=== PATIENT | male | born 1945 | race Caucasian/White ===

== ENCOUNTER 2019-03-10 11:00 | Outpatient (CLI) | payer OTHER, SELFPAY | END 2019-03-10 11:01 | disposition home or self-care (01) | LOC: SLEEP 03-11 11:53 | PROVIDERS: Family Provider Emergency Medicine Emergency Medical Services; PCP Emergency Medicine Emergency Medical Services; Visit Provider Internal Medicine Critical Care Medicine | DX: G70.9 Myoneural disorder, unspecified (principal) | CPT/HCPCS: 94762 ==

== ENCOUNTER 2019-04-20 05:58 | Day surgery (SDC) | payer OTHER, SELFPAY ==
[2019-04-20 06:15] VITALS: BMI 32.5
[2019-04-20] MEDS: sodium chloride 0.9% 1,000 ML 30 ML (06:47)
--- NOTE | 2019-04-20 07:01 | P.HP_ITS ---
Same Day Surgery H&P Indication for Procedure/HPI DATE OF PROCEDURE: April 20, 2019 CHIEF COMPLAINT/INDICATIONFOR SURGICAL PROCEDURE: GIST stomach Chronic constipation PREOP DIAGNOSIS: gastric mass PLANNED PROCEDRUE: Operation Date: 04/20/19 07:30 Proposed Procedures p EGD/COLON 21554/17487/C49.A2/R19.4(Not Applicable) - Prateek Moore MD s Colonoscopy(Not Applicable) - Prateek Moore MD Medications/Allergies* Home Medications Medication Instructions Recorded Confirmed Type amlodipine 10 mg tablet 10 mg PO DAILY 04/17/19 04/20/19 History azelastine 137 mcg (0.1 %) nasal 2 spray INTRANASAL BID 04/17/19 04/20/19 History spray aerosol biotin 1 mg capsule 1 mg PO DAILY 04/17/19 04/20/19 History budesonide-formoterol HFA 80 2 puff INHALATION BID 04/17/19 04/20/19 History mcg-4.5 mcg/actuation aerosol inhaler bupropion HCl 300 mg 24 hr tablet, 300 mg PO QAM 04/17/19 04/20/19 History extended release cholecalciferol (vitamin D3) 2,000 2,000 unit PO DAILY 04/17/19 04/20/19 History unit tablet clonidine HCl 0.1 mg tablet 0.05 mg PO BID 04/17/19 04/20/19 History cyclobenzaprine 10 mg tablet 10 mg PO TID PRN 04/17/19 04/20/19 History hydrochlorothiazide 25 mg tablet 25 mg PO DAILY 04/17/19 04/20/19 History hydroxyzine HCl 50 mg tablet 50 mg PO .qHS tab 04/17/19 04/20/19 History levothyroxine 88 mcg capsule 88 mcg PO DAILY 04/17/19 04/20/19 History lisinopril 40 mg tablet 40 mg PO DAILY 04/17/19 04/20/19 History metoprolol tartrate 50 mg tablet 25 mg PO BID tab 04/17/19 04/20/19 History mirtazapine 15 mg tablet 45 mg PO DAILY tab 04/17/19 04/20/19 History modafinil 200 mg tablet 400 mg PO DAILY tab 04/17/19 04/20/19 History omega-3 fatty acids 1,000 mg 1,000 mg PO DAILY 04/17/19 04/20/19 History capsule pantoprazole 40 mg PO BID 04/17/19 04/20/19 History clonidine HCl 0.1 mg PO BID 04/20/19 04/20/19 History ropinirole 1.5 mg PO BEDTIME 04/20/19 04/20/19 History Allergies/Adverse Reactions Allergy/AdvReac Type Severity Reaction Status Date / Time No Known Allergies Allergy Verified 04/17/19 08:54 Pertinent History/Comorbid Conditions* Medical History (Updated 04/20/19 @ 07:00 by Prateek Moore MD) COPD (chronic obstructive pulmonary disease) Depression Gastrointestinal stromal tumor (GIST) of stomach H/O prostate cancer History of tumor stomach tumor removed Hyperlipidemia Hypertension Hypothyroidism Multiple sclerosis Surgical History (Updated 04/20/19 @ 07:00 by Prateek Moore MD) H/O circumcision H/O colonoscopy 2011 H/O esophagogastroduodenoscopy 10/29/2017 Family History (Updated 04/17/19 @ 15:58 by Gaby Bender LPN) Diabetes Heart disease Bleeding disorder Sister Cancer Denies family history of Anesthesia complication Social History Smoking and tobacco status: former smoker Alcohol intake: never Substance/Drug Use: never Household members: spouse Marital status: Current occupational status: retired History of recent travel: No Pertinent Exam Findings alert, oriented x 3, clear to auscultation bilaterally and regular rate & rhythm Abdomen: soft Related Problem List Diagnoses (1) Gastrointestinal stromal tumor (GIST) of stomach: Recommendations Surgery/Procedure today Coding Level of Care Code Acute Professional Bass Fisher for mely Saez Diagnoses Gastrointestinal stromal tumor (GIST) of stomach C49.A2
[2019-04-20 07:50] VITALS: BP 168/79; PULSE 57; RESP 18; TEMP 36.8; O2SAT 95
--- NOTE | 2019-04-20 07:55 | ANES.PREANE2 ---
Pre-Anesthetic Assessment Pre-Anesthetic Assessment: Height/Weight: Height 1.8 m Weight 105.687 kg Temp Pulse Resp BP Pulse Ox 98.2 F 57 L 18 168/79 95 04/20/19 07:50 04/20/19 07:50 04/20/19 07:50 04/20/19 07:50 04/20/19 07:50 Preop Diagnosis: gastric mass Proposed Procedure: Operation Date: 04/20/19 07:30 Proposed Procedures p EGD/COLON 38358/78903/C49.A2/R19.4(Not Applicable) - Prateek Moore MD s Colonoscopy(Not Applicable) - Prateek Moore MD Familial anesthetic complications: none Was Beta Rajendra taken within 24 hours: Yes Last intake: Intake Last Liquid Date 04/19/19 Last Liquid Time 22:00 Last Solid Date 04/18/19 Last Solid Time 22:00 Social: Social History: No alcohol and No tobacco Exam: Pre-Anes Outpt Exam: alert, oriented x 3, clear to auscultation bilaterally and regular rate & rhythm Airway: Submandibular: WNL Cervical ROM: WNL MP: 2 (full wilkins) Dentition: Full History/ROS: No significant history except as noted Pulmonary: Pulmonary: Sleep apnea (BipAP at night) CV/HEM: CV/HEM: HTN and Murmur : Comments: prostate cancer (seeds) Hepatic: Hepatic: None reported GI: GI: GERD Metabolic: Metabolic: Hyperlipidemia and Thyroid Musc/skel: Musc/skel: OA/DJD Comments: Multiple sclerosis (dx 2006) Neuropsych: Neuropsych: Anxiety and Depression Anesthetic Plan: ASA status: 3 Anesthesia: Anesthesia Evaluation and MAC Risk of > 500 ml blood loss (7ml/kg in children): No PFSH Anesthesia PFSH: Medical History (Updated 04/20/19 @ 07:04 by Prateek Moore MD) COPD (chronic obstructive pulmonary disease) Depression Gastrointestinal stromal tumor (GIST) of stomach H/O prostate cancer History of tumor stomach tumor removed Hyperlipidemia Hypertension Hypothyroidism Multiple sclerosis Surgical History (Updated 04/20/19 @ 07:04 by Prateek Moore MD) H/O circumcision H/O colonoscopy 2011 H/O esophagogastroduodenoscopy 10/29/2017 H/O resection of stomach Laparoscopic partial resection for gist tumor the patient Family History (Updated 02/14/20 @ 15:58 by Gaby Bender LPN) Sister Bleeding disorder Other Cancer Diabetes Heart disease Denies family history of Anesthesia complication Social History (Updated 04/17/19 @ 15:59 by Gaby Bender LPN) Smoking and tobacco status: former smoker Alcohol intake: never Substance/Drug Use: never Household members: spouse Marital status: Current occupational status: retired History of recent travel: No Data Anesthesia Cardiac Studies: No Data to Display
[2019-04-20 08:35] VITALS: BP 126/57; PULSE 56; RESP 18; TEMP 36.6; O2SAT 97
[2019-04-20 08:45] VITALS: BP 130/57; PULSE 47; RESP 18; O2SAT 99
[2019-04-20 08:55] VITALS: BP 145/61; PULSE 46; RESP 18; O2SAT 96
--- NOTE | 2019-04-20 10:01 | ANE.PACU2 ---
 Inpatient post-anesthesia follow up: Airway intact: Yes Vital signs: Temperature 97.8 F Pulse Rate 46 Respiratory Rate 18 Blood Pressure 145/61 Pulse Oximetry 96 Oxygen Delivery Me thod Room Air Oxygen Flow Rate 3 Fraction of Inspir ed Oxygen Hydration adequate: Yes Nausea and vomiting: No Mental status: Baseline
== END 2019-04-20 09:24 | disposition home or self-care (01) ==
PROVIDERS: Family Provider Emergency Medicine Emergency Medical Services; PCP Emergency Medicine Emergency Medical Services; Visit Provider Surgery
PROC: 0DJ08ZZ Inspection of Upper Intestinal Tract, Via Natural or Artificial Opening Endoscopic (ICD-10-PCS; CPT 43235; principal; 2019-04-20 07:30)
PROC: 0DJD8ZZ Inspection of Lower Intestinal Tract, Via Natural or Artificial Opening Endoscopic (ICD-10-PCS; CPT 45378; 2019-04-20 07:30)
DX: C49.A2 Gastrointestinal stromal tumor of stomach (principal); K59.09 Other constipation; J44.9 Chronic obstructive pulmonary disease, unspecified; Z85.46 Personal history of malignant neoplasm of prostate; E78.5 Hyperlipidemia, unspecified; I10 Essential (primary) hypertension; E03.9 Hypothyroidism, unspecified; G35 Multiple sclerosis; Z82.49 Family history of ischemic heart disease and other diseases of the circulatory system; Z83.3 Family history of diabetes mellitus; Z87.891 Personal history of nicotine dependence; Z90.49 Acquired absence of other specified parts of digestive tract; K29.70 Gastritis, unspecified, without bleeding; K92.1 Melena; D12.2 Benign neoplasm of ascending colon; K57.30 Diverticulosis of large intestine without perforation or abscess without bleeding; K64.8 Other hemorrhoids; G47.30 Sleep apnea, unspecified; K21.9 Gastro-esophageal reflux disease without esophagitis; M19.90 Unspecified osteoarthritis, unspecified site
CPT/HCPCS: 12345; 43239; 45380; 88305; J2704; J7030

== ENCOUNTER 2020-03-11 07:34 | Inpatient (IN) | payer OTHER, MEDICARE, SELFPAY ==
[2020-03-11] VITALS (15 sets, daily range): BP systolic 134–157; BP diastolic 54–77; PULSE 60–87; RESP 16–22; TEMP 37–37.2; O2SAT 89–97; BMI 26.4
--- NOTE | 2020-03-11 07:36 | XR_ITS ---
WS: [id number] PORTABLE CHEST HISTORY: Dyspnea COMPARISON: 10/24/2018 Lungs are clear and well expanded. No pleural effusion or pneumothorax. Cardiac size: Normal. Mediastinum/Aorta: Normal mediastinum. No osseous abnormality seen. XR/XR chest 1V portable [id number] IMPRESSION: Unremarkable portable chest.
--- NOTE | 2020-03-11 07:47 | W.ED.COVID ---
HPI - COVID General: Chief Complaint: General Medical Stated Complaint: Covid +/ weakness/ SOB Time Seen by Provider: 03/11/20 07:36 History of Present Illness: HPI Narrative: 74 male presents to the emergency room with complaint of Covid-like symptoms. He states he tested positive on March 09 at the [place]. He has had a cough shortness of breath generalized malaise malaise and myalgias for more than a week. He had a neck surgery in December and according to our records he had a gastric tumor in his stomach diagnosed approximately a year ago. He has had increasing cough and shortness of breath as well. MD complaint: known COVID positive Prior covid testing: yes, results known (At [place]) Prior testing date: 03/09/20 COVID 19 common symptoms: positive fever(s), chills, cough, non-productive cough, dyspnea, fatigue, body aches, nasal congestion, nausea, vomiting and diarrhea COVID Results: No Data to Display Review of Systems Const: Reports: fever(s), body aches and fatigue ENMT: Reports: nasal congestion Resp: Reports: dyspnea and non-productive cough GI: Reports: nausea, vomiting and diarrhea PFSH ED PFSH: Medical History COPD (chronic obstructive pulmonary disease) Depression Gastrointestinal stromal tumor (GIST) of stomach H/O prostate cancer History of tumor stomach tumor removed Hyperlipidemia Hypertension Hypothyroidism Multiple sclerosis Surgical History H/O circumcision H/O colonoscopy 04/2019: Repeat in 5 years H/O esophagogastroduodenoscopy 04/2019 H/O resection of stomach Laparoscopic partial resection for gist tumor the patient Family History Sister Bleeding disorder Other Cancer Diabetes Heart disease Denies family history of Anesthesia complication Social History Smoking and tobacco status: former smoker Alcohol intake: never Household members: spouse Marital status: Current occupational status: retired History of recent travel: No Physical Exam Const: COMMON NORMALS: no acute distress GENERAL APPEARANCE: cooperative and comfortable ORIENTATION/CONSCIOUSNESS: Yes awake, Yes oriented to person, Yes oriented to place and Yes oriented to time HENMT: COMMON NORMALS: normocephalic, atraumatic and hearing grossly normal bilaterally HEAD & SCALP: normocephalic and atraumatic Eye: COMMON NORMALS: Equal, round and reactive pupils present, EOMs intact bilaterally, conjunctivae normal and no scleral icterus CONJUNCTIVA: Yes conjunctivae normal PUPIL: Yes Equal, round and reactive pupils present Neck/C-Spine: COMMON NORMALS: no JVD Resp: AUSCULTATION: rhonchi and wheezes Cardio: COMMON NORMALS: no JVD, regular rate, regular rhythm and No murmurs present (Cardio) RATE: regular rate RHYTHM: regular rhythm GI: COMMON NORMALS: Soft to palpation and No hepatosplenomegaly present AUSCULTATION: Yes normoactive bowel sounds PALPATION: Yes Soft to palpation, No Tenderness to palpation present (GI), No Guarding due to palpation present (GI) and Yes No hepatosplenomegaly present Extremity: COMMON NORMALS: normal to inspection, capillary refill normal, no clubbing, cyanosis or edema, no calf tenderness and no pedal edema Neuro: SENSORIUM/ORIENTATION: Yes oriented to person, Yes oriented to place and Yes oriented to time Skin: COMMON NORMALS: no rashes or lesions noted GENERAL SKIN EXAM: no rashes or lesions noted Course Vital Signs: Vital signs: Vital Signs Pulse Rate 78 03/11/20 07:39 Respiratory Rate 22 H 03/11/20 07:39 Blood Pressure 149/65 03/11/20 07:39 Pulse Oximetry 95 03/11/20 11:11 MDM - COVID MDM Narrative: Medical decision making narrative: Home O2 sat patient was 95% even with activity however when he sleeps he drops down to 88%. He does have CT findings of Covid he has persistent nausea and vomiting and has increase in his creatinine. I think he does merit observation overnight I am concerned that he will further worsen him started on remdesivir and dexamethasone. Considered giving him bam however since he is requiring oxygen at time of not sure it would be best he already has signs of Covid pneumonitis. Finally there is some question of the length of time he is reporting that some the symptoms extend beyond a week he may be outside of the 7 to 10-day window as well. Lab Data: Labs: Lab Results 03/11/20 03/11/20 03/11/20 Range/Units 08:05 09:05 09:05 WBC 5.3 (4.0-10.0) 10^3/ uL RBC 4.54 (4.1-5.3) 10^6/u L Hgb 13.2 (11.7-16.6) g/dL Hct 39.7 L (42.0-52.0) % MCV 87.4 (80-94) fL MCH 29.1 (28.0-34.0) pg MCHC 33.2 (30.0-36.0) g/dL RDW 15.2 H (12.1-15.1) % Plt Count 169 (130-400) 10^3/c mm MPV 13.4 H (7.4-10.4) fL Neut % (Auto) 65.0 % Lymph % (Auto) 20.8 % [place] % (Auto) 13.6 % Eos % (Auto) 0.2 % Baso % (Auto) 0.2 % Neut # (Auto) 3.45 (1.8-7.7) 10^3/u L Lymph # (Auto) 1.1 (0.8-4.8) 10^3/u L [place] # (Auto) 0.7 (0.2-0.9) 10^3/u L Eos # (Auto) 0.0 (0.0-0.8) 10^3/u L Baso # (Auto) 0.0 (0.0-0.1) 10^3/u L Nucleated RBC % (a uto) 0 % Nucleated RBCs # 0.0 /100WBC D-Dimer 2.28 H (0-0.59) ug/mIFE U Specimen Type Arterial Sample Site Radial, right ABG pH 7.42 (7.35-7.45) ABG pCO2 28.9 L (35-45) mmHg ABG pO2 67.3 L (80.0-100.0) mmH g ABG HCO3 18.9 L (22-26) mmol/L ABG O2 Saturation 95.0 ABG Base Excess -4.3 L (-2.0-2.0) mmol/ L Francisco J Test Pos A-a O2 Gradient 6.1 (5-10) mmHg Hematocrit 41.4 L (42-52) % Hgb O2 Saturation 93.6 L (95-100) % Carboxyhemoglobin 0.6 (0.4-20.1) %THgb Methemoglobin 0.9 (0.4-1.5) % Total Hemoglobin 13.5 L (14-18) g/dL Sodium 140.0 (131-143) mmol/L Potassium 3.5 (3.5-5.0) mmol/L Glucose 80.0 (70-115) mg/dL Ionized Calcium 1.4 (1.1-1.4) mmol/L O2 Delivery Device Room air FiO2 21.0 % Sports Medicine Specialist ID Ed Chloride (98-107) mmol/L Carbon Dioxide (22-29) mmol/L Anion Gap (5-19) BUN (8-23) mg/dL Creatinine (0.7-1.2) mg/dL GFR Calculation Calculated Osmolal ity (285-295) mOsm/k g Calcium (8.5-10.5) mg/dL Total Bilirubin (0.15-1.2) mg/dL AST (0-40) U/L ALT (0-41) U/L Alkaline Phosphata se (40-130) IU/L Total Protein (6.6-8.7) g/dL Albumin (3.5-5.2) g/dL Globulin (1.3-4.6) g/dL 03/11/20 Range/Units 09:05 WBC (4.0-10.0) 10^3/ uL RBC (4.1-5.3) 10^6/u L Hgb (11.7-16.6) g/dL Hct (42.0-52.0) % MCV (80-94) fL MCH (28.0-34.0) pg MCHC (30.0-36.0) g/dL RDW (12.1-15.1) % Plt Count (130-400) 10^3/c mm MPV (7.4-10.4) fL Neut % (Auto) % Lymph % (Auto) % [place] % (Auto) % Eos % (Auto) % Baso % (Auto) % Neut # (Auto) (1.8-7.7) 10^3/u L Lymph # (Auto) (0.8-4.8) 10^3/u L [place] # (Auto) (0.2-0.9) 10^3/u L Eos # (Auto) (0.0-0.8) 10^3/u L Baso # (Auto) (0.0-0.1) 10^3/u L Nucleated RBC % (a uto) % Nucleated RBCs # /100WBC D-Dimer (0-0.59) ug/mIFE U Specimen Type Sample Site ABG pH (7.35-7.45) ABG pCO2 (35-45) mmHg ABG pO2 (80.0-100.0) mmH g ABG HCO3 (22-26) mmol/L ABG O2 Saturation ABG Base Excess (-2.0-2.0) mmol/ L Francisco J Test A-a O2 Gradient (5-10) mmHg Hematocrit (42-52) % Hgb O2 Saturation (95-100) % Carboxyhemoglobin (0.4-20.1) %THgb Methemoglobin (0.4-1.5) % Total Hemoglobin (14-18) g/dL Sodium 137 (131-143) mmol/L Potassium 3.9 (3.5-5.0) mmol/L Glucose 78 (70-115) mg/dL Ionized Calcium (1.1-1.4) mmol/L O2 Delivery Device FiO2 % Sports Medicine Specialist ID Chloride 97 L (98-107) mmol/L Carbon Dioxide 19 L (22-29) mmol/L Anion Gap 24.9 H (5-19) BUN 32 H (8-23) mg/dL Creatinine 1.5 H (0.7-1.2) mg/dL GFR Calculation Not Reportable Calculated Osmolal ity 290 (285-295) mOsm/k g Calcium 10.5 (8.5-10.5) mg/dL Total Bilirubin 0.3 (0.15-1.2) mg/dL AST 39 (0-40) U/L ALT 49 H (0-41) U/L Alkaline Phosphata se 122 (40-130) IU/L Total Protein 7.3 (6.6-8.7) g/dL Albumin 4.0 (3.5-5.2) g/dL Globulin 3.3 (1.3-4.6) g/dL COVID Results: No Data to Display Discharge Plan Discharge Patient Disposition: Placed in Observation Clinical Impression: Pneumonia due to 2019-nCoV Condition: Stable Prescriptions: No Action metoprolol tartrate 50 mg tablet 25 mg PO BID RF: 0 hydrochlorothiazide 25 mg tablet 25 mg PO DAILY RF: 0 bupropion HCl 300 mg tablet extended release 24 hr 300 mg PO QAM RF: 0 lisinopril 40 mg tablet 40 mg PO DAILY RF: 0 amlodipine 10 mg tablet 10 mg PO DAILY RF: 0 levothyroxine 88 mcg capsule 88 mcg PO DAILY RF: 0 modafinil 200 mg tablet 400 mg PO DAILY RF: 0 omega-3 fatty acids [Fish Oil Concentrate] 1,000 mg capsule 1,000 mg PO DAILY RF: 0 biotin 1 mg capsule 1 mg PO DAILY RF: 0 cholecalciferol (vitamin D3) 2,000 unit tablet 2,000 unit PO DAILY RF: 0 budesonide-formoterol 80-4.5 mcg/actuation HFA aerosol inhaler 2 puff INHALATION BID RF: 0 hydroxyzine HCl 50 mg tablet 50 mg PO .qHS RF: 0 azelastine 137 mcg (0.1 %) aerosol,spray 2 spray INTRANASAL BID RF: 0 mirtazapine 15 mg tablet 45 mg PO DAILY RF: 0 clonidine HCl 0.1 mg tablet 0.05 mg PO BID RF: 0 cyclobenzaprine 10 mg tablet 10 mg PO TID PRN (Reason: Muscle Spasm) RF: 0 pantoprazole 40 mg tablet,delayed release (DR/EC) 40 mg PO BID RF: 0 clonidine HCl 0.1 mg Tablet 0.1 mg PO BID RF: 0 ropinirole 0.5 mg Tablet 1.5 mg PO BEDTIME RF: 0 Referrals: Marcos Gibson DO [Primary Care Provider] - Coding Level of Care Code ED Casino Cage Cashier for Bari Saez
[2020-03-11 08:16] LABS: ABG PCO2 28.9 mmHg (35-45); ABG PH Result 7.42 (7.35-7.45); Alveolar-Arterial Oxygen Gradi 6.1 mmHg (5-10); Arterial Blood Gas Hematocrit 41.4 % (42-52); Base Excess ABG -4.3 mmol/L (-2.0-2.0); Blood Gas Allen Test Pos; Blood Gas Operator Identificat ED; Blood Gas Sample Site Radial, right; Blood Gas Sample Type Arterial; Carboxyhemoglobin 0.6 %THgb (0.4-20.1); HCO3 ABG 18.9 mmol/L (22-26); HGB O2 Sat 93.6 % (95-100); Ionized Calcium Level - ABG 1.4 mmol/L (1.1-1.4); Methemoglobin 0.9 % (0.4-1.5); Oxygen Device ROOM AIR; PO2 ABG 67.3 mmHg (80.0-100.0); Potassium Level - ABG 3.5 mmol/L (3.5-5.0); Total Hemoglobin 13.5 g/dL (14-18)
[2020-03-11 09:35] LABS: D Dimer 2.28 ug/mIFEU (0-0.59)
[2020-03-11 09:38] LABS: Alanine Aminotransferase 49 U/L (0-41); Alkaline Phosphatase 122 IU/L (40-130); Blood Urea Nitrogen 32 mg/dL (8-23); Calcium 10.5 mg/dL (8.5-10.5); Carbon Dioxide 19 mmol/L (22-29); Chloride 97 mmol/L (98-107); Globulin 3.3 g/dL (1.3-4.6); Glucose 78 mg/dL (65-115); Osmolality Calculated 290 mOsm/kg (285-295); Sodium 137 mmol/L (136-145); Total Bilirubin 0.3 mg/dL (0.15-1.2); Total Protein 7.3 g/dL (6.6-8.7)
[2020-03-11 09:44] LABS: Anion Gap 24.9 (5-19); Aspartate Amino Transferase 39 U/L (0-40); Potassium 3.9 mmol/L (3.5-5.1)
--- NOTE | 2020-03-11 09:45 | CT_ITS ---
WS: [id number] CT CHEST ANGIOGRAPHY WITH REFORMATS HISTORY: elevated d dimer/COVID TECHNIQUE: Contiguous axial images are obtained through the chest during arterial injection of intrav enous contrast. Images are reconstructed to evaluate the pulmonary arteries. MIP imaging also reviewe d. All CT scans at [facility] use at least one of these dose optimization techniques: aut omated exposure control; mA and/or kV adjustment per patient size (includes targeted exams where dose is matched to clinical indication); or iterative reconstruction. CONTRAST: Visipaque 320; 95 mL IV. DLP: 647.01 mGy.cm COMPARISON: 02/02/2019 Adequate but limited opacification of the pulmonary arteries. Centrally there is no pulmonary emboli. Opacification of the lower lobe pulmonary arteries is limited. No upper lobe pulmonary emboli. Izabel l-sized thoracic aorta with mild atherosclerosis. Mild enlargement of the LEFT heart chambers. There is a small anterior pericardial effusion which is similar to the prior study. No pleural effusion. No mediastinal or hilar adenopathy. Numerous small groundglass opacifications throughout both lungs. Slightly greater peripheral and basi lar dominance in the pattern. Consistent with history of Covid 19. Negative thoracic inlet. No significant hiatal hernia. No adrenal mass. Splenic granulomata. CT/CT angio chest PE protcl [id number] IMPRESSION: 1. No pulmonary embolism. 2. Mild multilobar groundglass opacifications bilaterally consistent with hist ory of Covid 19. 3. Small stable pericardial effusion.
[2020-03-11 10:04] LABS: Basophils % 0.2 %; Eosinophils % 0.2 %; Hematocrit 39.7 % (42.0-52.0); Hemoglobin 13.2 g/dL (11.7-16.6); Lymphocytes # 1.1 10^3/uL (0.8-4.8); Lymphocytes % 20.8 %; Mean Corpuscular HGB Conc 33.2 g/dL (30.0-36.0); Mean Corpuscular Hemoglobin 29.1 pg (28.0-34.0); Mean Corpuscular Volume 87.4 fL (80-94); Mean Platelet Volume 13.4 fL (7.4-10.4); Monocytes # 0.7 10^3/uL (0.2-0.9); Monocytes % 13.6 %; Neutrophils # 3.45 10^3/uL (1.8-7.7); Nucleated Red Blood Cells % 0 %; Platelet Count 169 10^3/cmm (130-400); Red Blood Count 4.54 10^6/uL (4.1-5.3); Red Cell Distribution Width 15.2 % (12.1-15.1); White Blood Count 5.3 10^3/uL (4.0-10.0)
[2020-03-11] MEDS: iodixanol 320 mg/mL 100mL Btl IV (10:24)
--- NOTE | 2020-03-11 12:20 | PM.HP ---
Providers/Chief Complaint Admitting Physician: Daniel Phillips MD Primary Care Provider: Marcos Gibson DO Chief Complaint: Covid +/ weakness/ SOB History of Present Illness Elpidio Lopez is a 74 year old male with PMH of COPD, HTN, GIST, Hypothyroidism, MS was admitted with C/O subjective fever, OSB, cough,generalized malaise malaise and myalgias for more than a week. He was tested COVID + On ,since then his SOB and cough has worsened. Upon arrival in the ER he was worked up for above mentioned complain. Imaging Studies: XR chest: Lungs are clear and well expanded. No pleural effusion or pneumothorax. CTA Chest :No pulmonary embolism. Mild multilobar groundglass opacifications bilaterally consistent with history of Covid 19. Small stable pericardial effusion. Pertinent Labs : WBC : 5.3 , H/H : 13/3, BUN/SCR: 32/1.5 D-dimer: 2.28 ABG : Ph:7.42 , PCO2: 28, PO2: 67 FIO2: R/A ECA Medications: He was given Dexamethasone as well as Loading dose of Remdesivir. Review of Systems Const: Denies: diaphoresis Card: Denies: palpitations, edema or swelling of feet/ankles GI: Denies: abdominal pain, nausea, vomiting, diarrhea or constipation : Denies: flank pain or difficulty urinating Musc: Denies: back pain, extremity pain or extremity swelling Neuro: Denies: headache(s) or difficulty walking Medications/Allergies Home Medications Medication Instructions Recorded Confirmed Last Taken Type amlodipine 10 mg tablet 10 mg PO DAILY@1300 04/17/19 03/11/20 03/10/20 History azelastine 137 mcg (0.1 %) nasal 2 spray INTRANASAL BID 04/17/19 03/11/20 03/08/20 History spray aerosol biotin 1 mg capsule 1 mg PO DAILY 04/17/19 03/11/20 03/10/20 History bupropion HCl 300 mg 24 hr tablet, 300 mg PO DAILY@1300 04/17/19 03/11/20 03/10/20 History extended release hydrochlorothiazide 25 mg tablet 25 mg PO DAILY@1300 04/17/19 03/11/20 03/10/20 History hydroxyzine HCl 50 mg tablet 50 mg PO BEDTIME@2200 tab 04/17/19 03/11/20 03/08/20 History levothyroxine 88 mcg capsule 88 mcg PO DAILY@1300 04/17/19 03/11/20 03/10/20 History lisinopril 40 mg tablet 40 mg PO DAILY@2200 04/17/19 03/11/20 03/08/20 History metoprolol tartrate 50 mg tablet 25 mg PO BID@1300,2200 tab 04/17/19 03/11/20 03/10/20 History mirtazapine 15 mg tablet 45 mg PO DAILY@2200 tab 04/17/19 03/11/20 03/08/20 History modafinil 200 mg tablet 400 mg PO DAILY@1300 tab 04/17/19 03/11/20 03/10/20 History omega-3 fatty acids 1,000 mg 1,000 mg PO DAILY@1300 04/17/19 03/11/20 03/10/20 History capsule pantoprazole 40 mg PO BID@1300,2200 04/17/19 03/11/20 03/10/20 History clonidine HCl 0.1 mg PO BID@1300,2200 04/20/19 03/11/20 03/10/20 History ropinirole 2 mg PO BEDTIME@2200 04/20/19 03/11/20 03/08/20 History albuterol sulfate See Rx Instructions .ROUTE .COMPLEX 03/11/20 03/11/20 03/08/20 History aspirin [Aspir-81] 81 mg PO DAILY@1300 03/11/20 03/11/20 03/10/20 History diphenhydramine HCl 25 mg PO DAILY@2200 03/11/20 03/11/20 03/08/20 History lovastatin 40 mg PO DAILY@2200 03/11/20 03/11/20 03/08/20 History melatonin 1 tab PO BEDTIME@2200 03/11/20 03/11/20 03/08/20 History Allergies Allergy/AdvReac Type Severity Reaction Status Date / Time No Known Allergies Allergy Verified 03/11/20 07:38 PFSH Acute PFSH: Medical History COPD (chronic obstructive pulmonary disease) Depression Gastrointestinal stromal tumor (GIST) of stomach H/O prostate cancer History of tumor stomach tumor removed Hyperlipidemia Hypertension Hypothyroidism Multiple sclerosis Surgical History H/O circumcision H/O colonoscopy 04/2019: Repeat in 5 years H/O esophagogastroduodenoscopy 04/2019 H/O resection of stomach Laparoscopic partial resection for gist tumor the patient Family History Sister Bleeding disorder Other Cancer Diabetes Heart disease Denies family history of Anesthesia complication Social History Smoking and tobacco status: former smoker Alcohol intake: never Household members: spouse Marital status: Current occupational status: retired History of recent travel: No Vitals/I&O/Wt Last Vital Signs Pulse 78 03/11/20 07:39 Resp 22 H 03/11/20 07:39 BP 149/65 03/11/20 07:39 Pulse Ox 95 03/11/20 11:11 Weight last 48 hrs Weight 86.183 kg Physical Exam Narrative: EXAM NARRATIVE: Alert and Awake HENMT: COMMON NORMALS: normocephalic, atraumatic and external ears normal HEAD & SCALP: normocephalic and atraumatic Chest: CHEST: Yes Symmetrical chest wall rise Resp: COMMON NORMALS: normal respiratory effort, No retractions, No use of accessory muscles and clear to auscultation bilaterally EFFORT & INSPECTION: Yes symmetric chest movement AUSCULTATION: clear to auscultation bilaterally Cardio: COMMON NORMALS: regular rate, regular rhythm, S1 normal heart sound present, S2 normal heart sound present, No gallops present (Cardio), No murmurs present (Cardio), No rub (Cardio) and Peripheral pulses 2+ throughout RATE: regular rate RHYTHM: regular rhythm HEART SOUNDS: S1 normal heart sound present and S2 normal heart sound present PERIPHERAL PULSES: Peripheral pulses 2+ throughout GI: COMMON NORMALS: Normal to inspection, nondistended, normoactive bowel sounds present, Soft to palpation, non-tender, No hepatosplenomegaly present and no masses AUSCULTATION: Yes normoactive bowel sounds PALPATION: Yes Soft to palpation and Yes No hepatosplenomegaly present RECTAL EXAM: Yes deferred Extremity: COMMON NORMALS: no clubbing, cyanosis or edema and no pedal edema Neuro: COMMON NORMALS: patient oriented x3 Data : 03/11/20 09:05 03/11/20 09:05 A&P Assessment and plan (1) Pneumonia due to COVID-19 virus: Currently on COVID Protocol REM : (03/11-03/15 ) Dexamethasone 6 MG i.v Daily Cef and Azithromycin Monitor Cytokine storm Markers. 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
[2020-03-11] MEDS: remdesivir 200 MG in sodium chloride 0.9% (100 ml) 100 ML 100 MG IV (12:42)
[2020-03-11] MEDS: dexamethasone 4 mg/mL INJ 6 MG IVP ×2 (12:42→22:21)
[2020-03-11] MEDS: cefTRIAXone 1,000 MG in sodium chloride 0.9% (plus) 50 ML 100 MG IV (14:59)
[2020-03-11] MEDS: heparin 5,000 unit/mL INJ 1 mL 5000 UNIT SUBCUT (14:59)
[2020-03-11] MEDS: azithromycin 500 MG in sodium chloride 0.9% 250 ML 250 MG IV (14:59)
[2020-03-11] MEDS: sodium chloride 0.9% 1,000 ML 75 ML IV (15:08)
[2020-03-11] MEDS: oxyCODONE-APAP 5-325 mg Tablet 1 TAB PO (15:08)
[2020-03-11] MEDS: cloNIDine 0.1 mg Tablet 0.05 MG PO (17:34)
[2020-03-11] MEDS: metoprolol tartrate 25 mg Tablet PO (17:34)
[2020-03-11] MEDS: albuterol 8 gm MDI 2 PUFF INHALATION (20:00)
[2020-03-11] MEDS: ropinirole 1 mg Tablet 1.5 MG PO (21:50)
[2020-03-11] MEDS: mirtazapine 15 mg Tablet 45 MG PO (21:51)
[2020-03-11] MEDS: hyDROXYzine 25 mg Capsule 50 MG PO (21:52)
[2020-03-12] VITALS (16 sets, daily range): BP systolic 115–141; BP diastolic 55–66; PULSE 54–82; RESP 15–24; TEMP 36.3–37.2; O2SAT 92–98
[2020-03-12] MEDS: heparin 5,000 unit/mL INJ 1 mL 5000 UNIT SUBCUT ×2 (01:39→15:34)
[2020-03-12] MEDS: oxyCODONE-APAP 5-325 mg Tablet 1 TAB PO ×2 (01:52→22:02)
[2020-03-12 05:18] LABS: Hematocrit 35.6 % (42.0-52.0); Hemoglobin 11.8 g/dL (11.7-16.6); Lymphocytes # 0.8 10^3/uL (0.8-4.8); Lymphocytes % 21.1 %; Mean Corpuscular HGB Conc 33.1 g/dL (30.0-36.0); Mean Corpuscular Hemoglobin 28.8 pg (28.0-34.0); Mean Corpuscular Volume 86.8 fL (80-94); Mean Platelet Volume 11.7 fL (7.4-10.4); Monocytes # 0.4 10^3/uL (0.2-0.9); Monocytes % 10.4 %; Neutrophils # 2.48 10^3/uL (1.8-7.7); Nucleated Red Blood Cells % 0 %; Platelet Count 119 10^3/cmm (130-400); Red Cell Distribution Width 15.2 % (12.1-15.1); White Blood Count 3.7 10^3/uL (4.0-10.0)
[2020-03-12] MEDS: sodium chloride 0.9% 1,000 ML 75 ML IV (05:41)
[2020-03-12 06:05] LABS: NT Pro B Type Natriuretic Pept 750 pg/mL (0-125); Procalcitonin 0.25 ng/mL (0-0.5); Thyroid Stimulating Hormone 2.67 uIU/mL (0.27-4.20)
[2020-03-12 06:16] LABS: Alanine Aminotransferase 44 U/L (0-41); Albumin Level 3.4 g/dL (3.5-5.2); Alkaline Phosphatase 105 IU/L (40-130); Anion Gap 18.9 (5-19); Aspartate Amino Transferase 34 U/L (0-40); Blood Urea Nitrogen 24 mg/dL (8-23); C Reactive Protein 71.8 mg/L (0.0-4.9); Calcium 10.3 mg/dL (8.5-10.5); Carbon Dioxide 21 mmol/L (22-29); Chloride 102 mmol/L (98-107); Globulin 2.9 g/dL (1.3-4.6); Glucose 107 mg/dL (65-115); Magnesium 1.7 mg/dL (1.7-2.3); Osmolality Calculated 291 mOsm/kg (285-295); Potassium 3.9 mmol/L (3.5-5.1); Sodium 138 mmol/L (136-145); Total Bilirubin 0.2 mg/dL (0.15-1.2); Total Protein 6.3 g/dL (6.6-8.7)
[2020-03-12 06:41] LABS: Ferritin 1258 ng/mL (30-400)
[2020-03-12 07:08] LABS: INR 1.23 (0.8-1.2)
[2020-03-12 07:09] LABS: Partial Thromboplastin Time 42.7 SECONDS (23.9-36.7)
[2020-03-12 07:34] LABS: D Dimer 1.51 ug/mIFEU (0-0.59)
[2020-03-12 08:36] LABS: Erythrocyte Sedimentation Rate 31 mm/hr (0-10)
[2020-03-12] MEDS: albuterol 8 gm MDI 2 PUFF INHALATION ×2 (08:47→19:54)
[2020-03-12] MEDS: buPROPion XL (24 HR) 300 mg Tablet PO (10:51)
[2020-03-12] MEDS: levothyroxine 88 mcg Tablet PO (10:51)
[2020-03-12] MEDS: pantoprazole DR 40 mg Tablet PO (10:51)
[2020-03-12] MEDS: cholecalciferol (vitamin D3) 1,000 unit Tablet 2000 UNIT PO (10:51)
[2020-03-12] MEDS: cloNIDine 0.1 mg Tablet 0.05 MG PO ×2 (10:52→18:26)
[2020-03-12] MEDS: metoprolol tartrate 25 mg Tablet PO ×2 (10:52→18:24)
[2020-03-12] MEDS: amlodipine 10 mg Tablet PO (10:52)
[2020-03-12] MEDS: cefTRIAXone 1,000 MG in sodium chloride 0.9% (plus) 50 ML 100 MG IV (12:24)
[2020-03-12] MEDS: azithromycin 500 MG in sodium chloride 0.9% 250 ML 250 MG IV (15:36)
[2020-03-12] MEDS: remdesivir 100 MG in sodium chloride 0.9% (100 ml) 100 ML IV (18:25)
--- NOTE | 2020-03-12 18:39 | PM.PN ---
Subjective Subjective: Interval history: Complaining of difficulty swallowing, which he describes has been going on for a while and has resulted in significant weight loss. He deny any other complain. Vitals and labs have been reviewed. Medications: Reviewed: Yes Vitals/I&O/Wt Last Vital Signs Temp 97.4 F L 03/12/20 16:00 Pulse 76 03/12/20 16:00 Resp 17 03/12/20 16:00 BP 128/61 03/12/20 18:26 Pulse Ox 95 03/12/20 16:00 03/12/20 03/12/20 03/12/20 06:59 14:59 22:59 Intake Total 1000 / 1300 120 / 120 240 / 360 Output Total 0 / 500 575 / 575 Balance 1000 / 800 120 / 120 -335 / -215 Weight last 48 hrs Weight 91.807 kg Weight 86.183 kg Physical Exam Const: COMMON NORMALS: patient oriented x3 HENMT: COMMON NORMALS: normocephalic and atraumatic HEAD & SCALP: normocephalic and atraumatic Chest: COMMONS NORMALS: normal inspection of the chest and normal palpation of entire chest wall CHEST: Yes Symmetrical chest wall rise Resp: COMMON NORMALS: normal respiratory effort, No retractions, No use of accessory muscles and clear to auscultation bilaterally EFFORT & INSPECTION: Yes symmetric chest movement AUSCULTATION: clear to auscultation bilaterally Cardio: COMMON NORMALS: regular rate, regular rhythm, S1 normal heart sound present, S2 normal heart sound present, No gallops present (Cardio), No murmurs present (Cardio), No rub (Cardio) and Peripheral pulses 2+ throughout RATE: regular rate RHYTHM: regular rhythm HEART SOUNDS: S1 normal heart sound present and S2 normal heart sound present PERIPHERAL PULSES: Peripheral pulses 2+ throughout GI: COMMON NORMALS: Normal to inspection, nondistended, normoactive bowel sounds present, Soft to palpation, non-tender, No hepatosplenomegaly present and no masses AUSCULTATION: Yes normoactive bowel sounds PALPATION: Yes Soft to palpation and Yes No hepatosplenomegaly present RECTAL EXAM: Yes deferred Extremity: COMMON NORMALS: no clubbing, cyanosis or edema and no pedal edema Neuro: COMMON NORMALS: patient oriented x3 Data : 03/12/20 04:45 03/12/20 04:45 A&P Assessment and plan (1) Pneumonia due to COVID-19 virus: Currently on COVID Protocol REM : (03/11-03/15 ) Dexamethasone 6 MG i.v Daily Cef and Azithromycin Monitor Cytokine storm Markers. Lovenox 40 mg sc daily Supplemental Oxygen as needed Nebs Status: Acute (2) Dysphagia: Complaining of difficulty swallowing, which he describes has been going on for a while and has resulted in significant weight loss. Deny any chest pain. 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 (4) COPD (chronic obstructive pulmonary disease): Status: Acute (5) Hypertension: Status: Acute (6) Hypothyroidism: Status: Acute (7) Multiple sclerosis: Status: Acute Additional A&P Information DVT ppx:Lovenox 40 mg sc daily Code Status :Full code Disposition:Home Attestations Medical Necessity Statement*: Patient needs to be in hospital for the management of COVID Infection Coding Level of Care Code Acute Development Disability Specialist for [facility] Fwd Diagnoses Pneumonia due to COVID-19 virus U07.1; J12.89 Dysphagia R13.10 Gastrointestinal stromal tumor (GIST) of stomach 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
[2020-03-12] MEDS: dexamethasone 4 mg/mL INJ 6 MG IVP (20:13)
[2020-03-12] MEDS: ropinirole 1 mg Tablet 1.5 MG PO (21:56)
[2020-03-12] MEDS: mirtazapine 15 mg Tablet 45 MG PO (22:00)
[2020-03-12] MEDS: hyDROXYzine 25 mg Capsule 50 MG PO (22:05)
[2020-03-13] VITALS (9 sets, daily range): BP systolic 121–140; BP diastolic 46–65; PULSE 46–86; RESP 15–18; TEMP 35.8–36.3; O2SAT 92–96; BMI 28.8
[2020-03-13] MEDS: sodium chloride 0.9% 1,000 ML 75 ML IV (00:09)
[2020-03-13] MEDS: heparin 5,000 unit/mL INJ 1 mL 5000 UNIT SUBCUT (03:51)
[2020-03-13 04:16] LABS: D Dimer 1.44 ug/mIFEU (0-0.59)
[2020-03-13 04:18] LABS: C Reactive Protein 52.2 mg/L (0.0-4.9)
[2020-03-13 04:41] LABS: Ferritin 1233 ng/mL (30-400)
[2020-03-13 04:48] LABS: Erythrocyte Sedimentation Rate 38 mm/hr (0-10)
--- NOTE | 2020-03-13 05:44 | NUR.SHIFT ---
Patient refused his wellbutrin this morning. He said he would try to take it when he takes his other medication around 8-9am. I rescheduled for 0800.
[2020-03-13] MEDS: albuterol 8 gm MDI 2 PUFF INHALATION (08:10)
[2020-03-13] MEDS: metoprolol tartrate 25 mg Tablet PO (10:34)
[2020-03-13] MEDS: cloNIDine 0.1 mg Tablet 0.05 MG PO (10:34)
[2020-03-13] MEDS: amlodipine 10 mg Tablet PO (10:35)
[2020-03-13] MEDS: levothyroxine 88 mcg Tablet PO (10:35)
[2020-03-13] MEDS: cholecalciferol (vitamin D3) 1,000 unit Tablet 2000 UNIT PO (10:35)
[2020-03-13] MEDS: buPROPion XL (24 HR) 300 mg Tablet PO (10:35)
[2020-03-13] MEDS: pantoprazole DR 40 mg Tablet PO (10:40)
--- NOTE | 2020-03-13 13:44 | PM.DCS ---
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 He was tested COVID + On ,since then his SOB and cough has worsened. Admitted for the management of COVID 19 infection. During this entire hospital stay he was saturating well on room air, he was afebrile, his other vitals were stable. He was kept on remdesivir ( 2 Doses ) and Decadron.He for most part was not a candidate for inpatient admission for COVID infection. During the hospital stay he was also complaining of worsening dysphagia and weight loss due to it. He underwent FESS was unremarkable, but it showed large tounge base, tonsils as well as adenoids.He will follow ENT as an outpatient for further work up. Patient was discharged in stable condition to home. Pertinent Imaging Studies: CT angio chest: No pulmonary embolism.Mild multilobar groundglass opacifications bilaterally consistent with history of Covid 19. Small stable pericardial effusion. Xray Chest : Lungs are clear and well expanded. No pleural effusion or pneumothorax. Cardiac size: Normal. Mediastinum/Aorta: Normal mediastinum. Physical Exam Const: COMMON NORMALS: patient oriented x3 HENMT: COMMON NORMALS: normocephalic and atraumatic HEAD & SCALP: normocephalic and atraumatic Chest: CHEST: Yes Symmetrical chest wall rise Resp: COMMON NORMALS: clear to auscultation bilaterally EFFORT & INSPECTION: Yes symmetric chest movement AUSCULTATION: clear to auscultation bilaterally Cardio: COMMON NORMALS: regular rate, regular rhythm, S1 normal heart sound present, S2 normal heart sound present, No gallops present (Cardio), No murmurs present (Cardio), No rub (Cardio) and Peripheral pulses 2+ throughout RATE: regular rate RHYTHM: regular rhythm HEART SOUNDS: S1 normal heart sound present and S2 normal heart sound present PERIPHERAL PULSES: Peripheral pulses 2+ throughout GI: COMMON NORMALS: Normal to inspection, nondistended, normoactive bowel sounds present, Soft to palpation, non-tender, No hepatosplenomegaly present and no masses AUSCULTATION: Yes normoactive bowel sounds PALPATION: Yes Soft to palpation and Yes No hepatosplenomegaly present RECTAL EXAM: Yes deferred Extremity: COMMON NORMALS: no clubbing, cyanosis or edema and no pedal edema Neuro: COMMON NORMALS: patient oriented x3 Discharge Data Data Completed and Pending: Completed Studies During Hospitalization Category Date Time Status CT angio chest PE protcl [id number] Stat Cat Scan 03/11/20 09:45 Completed XR chest 1V lianna ble [id number] Stat Exams 03/11/20 07:36 Completed Pending at discharge Category Date Time Status CRP [C Reactive P rotein] AM LABS Lab 03/14/20 04:00 Ordered D Dimer AM LABS Lab 03/14/20 04:00 Ordered Erythrocyte Sedim entation Rate AM L ABS Lab 03/14/20 04:00 Ordered Ferritin AM LABS Lab 03/14/20 04:00 Ordered Sputum Culture an d Gram Stain Routi ne Lab 03/13/20 08:34 Ordered Labs from last 24 hours 03/13/20 03/13/20 03/13/20 03:45 03:45 03:45 ESR 38 H D-Dimer 1.44 H Ferritin 1233 H C-Reactive Protein 52.2 H Vitals: Last Vital Signs Temp 96.6 F L 03/13/20 12:00 Pulse 50 L 03/13/20 12:00 Resp 16 03/13/20 12:00 BP 133/52 03/13/20 12:00 Pulse Ox 96 03/13/20 12:00 Discharge Plan Discharge Patient Disposition: Home Condition: Stable Prescriptions: Continued metoprolol tartrate 50 mg tablet 25 mg PO BID@1300,2200 RF: 0 hydrochlorothiazide 25 mg tablet 25 mg PO DAILY@1300 RF: 0 bupropion HCl 300 mg tablet extended release 24 hr 300 mg PO DAILY@1300 RF: 0 lisinopril 40 mg tablet 40 mg PO DAILY@220 RF: 0 amlodipine 10 mg tablet 10 mg PO DAILY@1300 RF: 0 levothyroxine 88 mcg capsule 88 mcg PO DAILY@1300 RF: 0 modafinil 200 mg tablet 400 mg PO DAILY@1300 RF: 0 omega-3 fatty acids [Fish Oil Concentrate] 1,000 mg capsule 1,000 mg PO DAILY@1300 RF: 0 biotin 1 mg capsule 1 mg PO DAILY RF: 0 hydroxyzine HCl 50 mg tablet 50 mg PO BEDTIME@2199 RF: 0 azelastine 137 mcg (0.1 %) aerosol,spray 2 spray INTRANASAL BID RF: 0 mirtazapine 15 mg tablet 45 mg PO DAILY@2199 RF: 0 pantoprazole 40 mg tablet,delayed release (DR/EC) 40 mg PO BID@1300,220 RF: 0 clonidine HCl 0.1 mg Tablet 0.1 mg PO BID@1300,2199 RF: 0 ropinirole 0.5 mg Tablet 2 mg PO BEDTIME@2199 RF: 0 lovastatin 40 mg Tablet 40 mg PO DAILY@2199 RF: 0 aspirin 81 mg Tablet,Delayed Release (Dr/Ec) 81 mg PO DAILY@1300 RF: 0 diphenhydramine HCl 25 mg Tablet 25 mg PO DAILY@2199 RF: 0 albuterol sulfate See Rx Instructions .ROUTE .COMPLEX RF: 0 melatonin 1 tab PO BEDTIME@2199 RF: 0 Discharge Orders: Discharge Order (Routine); Ordered 03/13/20 Ordered By: Daniel Phillips Referrals: Simone Anne MD [Physician] - 4-7 days (Please call on Saturday to schedule appt. [facility] will need to get [facility] from them first. Olga Lidia with Case Management will follow up with you on Saturday to see if need assistance with referral. Olga Lidia ) Marcos Gibson, [Primary Care Provider] - Discharge Diet: Soft Mechanical Discharge Activity: Resume usual activity Patient Instructions: Dysphagia, Chronic Hypertension (GEN) Discharge Attestations Time Spent in Discharge Care*: less than 30 min Specific Discharge Activities: educating patient, educating and/or supporting family/caregiver, discussing with director of casework services/social workers/dc planners, documenting/other paperwork and evaluating patient/reviewing data Status at Discharge: Cognitive status at discharge: cognitively intact, Behavioral status at discharge: cooperative, Functional status at discharge: independent ambulation Overall status at discharge: patient is back to baseline Quality Metrics Clinical Quality Measures During this hospital stay, did patient experience: None Coding Level of Care Code Acute Pbx Manager for [facility] Fwd Exam Detailed Diagnoses Pneumonia due to COVID-19 virus U07.1; J12.89 Dysphagia R13.10 Gastrointestinal stromal tumor (GIST) of stomach 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
--- NOTE | 2020-03-14 13:26 | PC.RESP ---
Pulmonary Rehab information sent to patient.
--- NOTE | 2020-03-15 09:08 | PC.SOCIAL ---
Called to see if assistance is needed to coordinate [facility]. indicates [facility] is having to send to [facility] Phillips instead and working on auth. They dont have Omid in their system yet. will make appt once auth obtained. She indicates patient still unable to eat or drink and having excess secretions. He was vomiting last night and is sleeping currently.We discussed if continues to worsen may need to return so he does not get dehydrated. does not want him back on the floor in closed COVID unit because he has hearing deficits and she wants family to be involved in care. She is hoping can see Dr Phillips soon.
== END 2020-03-13 15:45 | disposition home or self-care (01) | DRG 177 ==
LOC: ER 11:33 → MEDSURG 03-12 10:24
PROVIDERS: Admitting Provider Internal Medicine; Emergency Provider Family Medicine; PCP Emergency Medicine Emergency Medical Services; Visit Provider Internal Medicine
DX: U07.1 COVID-19 (principal); J12.82 Pneumonia due to coronavirus disease 2019; J44.0 Chronic obstructive pulmonary disease with (acute) lower respiratory infection; C49.A2 Gastrointestinal stromal tumor of stomach; R13.10 Dysphagia, unspecified; E03.9 Hypothyroidism, unspecified; G35 Multiple sclerosis; I10 Essential (primary) hypertension; Z85.46 Personal history of malignant neoplasm of prostate; F32.9 Major depressive disorder, single episode, unspecified; E78.5 Hyperlipidemia, unspecified; Z87.891 Personal history of nicotine dependence
CPT/HCPCS: 12345; 36415; 36600; 71045; 71275; 80051; 80053; 82330; 82728; 82805; 83605; 83735; 83880; 84145; 84443; 85025; 85378; 85610; 85651; 85730; 86140; 87070; 87205; 92523; 92526; 92610; 92612; 94640; 96372; 99282; J0456; J0696; J1100; J1644; J3535; J7030; J7050; Q9967

== ENCOUNTER 2020-03-28 09:17 | Outpatient (CLI) | payer OTHER, MEDICARE, SELFPAY ==
--- NOTE | 2020-03-28 09:24 | CT_ITS ---
WS: [id number] CT NECK WITH CONTRAST HISTORY: DYSPHAGIA TECHNIQUE: Contiguous 5 mm axial images are performed through the neck with intravenous contrast. Sag ittal and coronal reformats are also submitted. All CT scans at [facility] use at least o ne of these dose optimization techniques: automated exposure control; mA and/or kV adjustment per pat ient size (includes targeted exams where dose is matched to clinical indication); or iterative recons truction. CONTRAST: CONTRAST: Visipaque 320; 95 mL IV. DLP: 517.25 mGy.cm COMPARISON: MRI 10/22/2006 cervical spine MRI Nasopharynx and oropharynx are negative. There is some very mild soft tissue thickening at the base o f the RIGHT aryepiglottic fold. This may been present in 2006 on the MRI. Otherwise the larynx is neg ative. Torus tubarius and fossa of Rosenmuller and parapharyngeal fat are normal. No significant lymphadenopathy is identified. Subcentimeter RIGHT thyroid nodule. Parotid and submandibular glands are negative. Anterior cervical fusion with interbody spacer at C3-4. No inferior displacement of cerebellar tonsil s. Visualized portions of the skull base demonstrate no abnormalities. Orbits and globes are within norm al limits. No soft tissue masses. Visualized paranasal sinuses and mastoid air cells are normal. Lung apices are clear. CT/CT neck w con* [id number] IMPRESSION: 1. Very mild soft tissue thickening at the base of the RIGHT aryepiglottic fol d. Recommend direct visualization to evaluate for early neoplasm. 2. No adenopathy.
--- NOTE | 2020-03-28 10:30 | FL_ITS ---
WS: [id number] Preliminary survey shows operative fusion of the C-spine at the C3-4 level with anterior plate and sc rew fixation. The fusion is in good alignment is not ossified. Exam: FL barium swallow [id number] Date/Time of Exam: 03/28/2020 11:00 AM Reason For Exam: DYSPHAGIA Fluoroscopy time: 1.6 minutes Swallowing function at the level of the oropharynx was normal. No evidence of aspiration or penetrati on into the laryngeal inlet. There was no evidence of esophageal stricture or mass. No hiatal hernia or gastroesophageal reflux was noted. FL/FL barium swallow [id number] IMPRESSION: 1. No indication of esophageal stricture, mass or obstruction. 2. No aspiration identified. Esophageal motility was grossly normal.
[2020-03-28] MEDS: iohexol 300 mg/mL 100 mL Btl IV (10:51)
== END 2020-03-28 09:18 | disposition home or self-care (01) ==
PROVIDERS: PCP Emergency Medicine Emergency Medical Services; Visit Provider Specialist
DX: R13.10 Dysphagia, unspecified (principal)
CPT/HCPCS: 70491; 74220; Q9967

== ENCOUNTER 2020-03-31 10:20 | Outpatient (CLI) | payer OTHER, MEDICARE, SELFPAY ==
--- NOTE | 2020-03-31 10:32 | FL_ITS ---
WS: [id number] MODIFIED BARIUM SWALLOW TECHNIQUE: Modified barium swallow with speech therapy using multiple consistencies. FLUOROSCOPY TIME: 3.5 minutes. CLINICAL INFORMATION: Other dysphagia COMPARISON: None. FINDINGS: No evidence of aspiration or penetration. Delayed oropharyngeal phase with decreased pharyngeal contr actility. Prior postoperative changes anterior cervical fusion C3-4 with interbody fusion. Posterior projecting small diverticulum at the C6 level likely represents a small Zenker's diverticulum. No dif ficulties with barium tablet. FL/FL barium swallow modifd [id number] IMPRESSION: 1. Delayed oropharyngeal phase with pooling in the vallecula. 2. No evidence of aspiration penetration. 3. Small Zenker's diverticulum at the C5-6 level with retained contrast. No ph aryngeal compression. 4. No difficulties with the barium tablet.
== END 2020-03-31 10:21 | disposition home or self-care (01) ==
LOC: RAD 10:27
PROVIDERS: PCP Emergency Medicine Emergency Medical Services; Visit Provider Specialist
DX: R13.19 Other dysphagia (principal)
CPT/HCPCS: 74230; 92611

== ENCOUNTER 2021-10-25 13:35 | Inpatient (IN) | payer OTHER, MEDICARE, SELFPAY ==
[2021-10-25] VITALS (25 sets, daily range): BP systolic 104–162; BP diastolic 69–138; PULSE 79–129; RESP 15–30; TEMP 36.9; O2SAT 93–98
--- NOTE | 2021-10-25 13:40 | ECG_ITS ---
[facility] Test Date: 2021-10-25 Pat Name: Elpidio Lopez Department: Room: Gender: Male Treatment Counselor: : 1945 Requested By: Romario Clark Order Number: [id number] Christopher MD: Floyd Levin M.D. Measurements Intervals [place] Rate: 126 P: [place]: QRS: 42 QRSD: 100 T: 7 QT: 327 QTc: 474 Interpretive Statements ATRIAL FIBRILLATION WITH RAPID VENTRICULAR RESPONSE MODERATE ST DEPRESSION [0.05+ mV ST DEPRESSION] Compared to ECG 10/24/2018 10:03:37 ST (T wave) deviation now present Sinus bradycardia no longer present Electronically Signed On 10-25-2021 16:29:53 CDT by Floyd Levin M.D. [id number] f
[2021-10-25] MEDS: sodium chloride 0.9% 500 ML 999 ML IV (14:20)
[2021-10-25] MEDS: dilTIAZem 5 mg/mL SDV 5 mL 10 MG IVP (14:20)
[2021-10-25 14:36] LABS: Basophils # 0.1 10^3/uL (0.0-0.1); Basophils % 1.4 %; Eosinophils # 0.4 10^3/uL (0.0-0.8); Eosinophils % 4.3 %; Hematocrit 49.4 % (42.0-52.0); Lymphocytes # 1.9 10^3/uL (0.8-4.8); Lymphocytes % 21.3 %; Mean Corpuscular HGB Conc 32.4 g/dL (30.0-36.0); Mean Corpuscular Hemoglobin 28.3 pg (28.0-34.0); Mean Corpuscular Volume 87.3 fl (80-94); Mean Platelet Volume 12.1 fL (7.4-10.4); Monocytes # 0.8 10^3/uL (0.2-0.9); Monocytes % 8.6 %; Neutrophils # 5.61 10^3/uL (1.8-7.7); Neutrophils % 63.8 %; Nucleated Red Blood Cells % 0 %; Platelet Count 193 10^3/cmm (130-400); Red Blood Count 5.66 10^6/uL (4.1-5.3); Red Cell Distribution Width 13.2 % (12.1-15.1); White Blood Count 8.8 10^3/uL (4.0-10.0)
[2021-10-25 14:54] LABS: D Dimer 0.37 ug/mIFEU (0-0.59)
[2021-10-25 15:05] LABS: Troponin(5th) Baseline 24 ng/L (0-15)
[2021-10-25 15:11] LABS: Alanine Aminotransferase 15 U/L (0-41); Albumin Level 4.2 g/dL (3.5-5.2); Alkaline Phosphatase 108 U/L (40-130); Anion Gap 15.9 (5-19); Aspartate Amino Transferase 11 U/L (0-40); Blood Urea Nitrogen 15 mg/dL (8-23); Calcium 9.3 mg/dL (8.5-10.5); Carbon Dioxide 26 mmol/L (22-29); Chloride 103 mmol/L (98-107); Globulin 3.6 g/dL (1.3-4.6); Glucose 94 mg/dL (65-115); Osmolality Calculated 293 mOsm/kg (285-295); Potassium 3.9 mmol/L (3.5-5.1); Sodium 141 mmol/L (136-145); Thyroid Stimulating Hormone 5.08 uIU/mL (0.27-4.20); Total Bilirubin 0.4 mg/dL (0.15-1.2); Total Protein 7.8 g/dL (6.6-8.7)
--- NOTE | 2021-10-25 15:32 | W.ED.CHESTPA ---
HPI - Chest Pain General: Chief Complaint: Chest Pain Stated Complaint: chest pain Time Seen by Provider: 10/25/21 13:50 History of Present Illness: 75-year-old male presenting today with sudden onset of chest pain this morning. Patient notes that pain awoken him from sleep. When he awoke Handy that it was left-sided. Nonradiating. And that his heart rate was going fast. Primary him to coming to the ED. He has no prior history of atrial fibrillation. He is not on any kind of blood thinners. He has no significant history of coronary artery disease. Of note he was recently diagnosed with hyperthyroidism. And had a thyroidectomy is now currently on levothyroxine. He denies other stimulant use. He denies fevers or chills. Denies nausea or vomiting. He denies shortness of breath. He has edema of bilateral lower extremities which is new for him. Review of Systems General: Reports: 10 or more systems reviewed and unremarkable except in HPI and below PFSH ED PFSH: Medical History (Updated 10/25/21 @ 15:35 by Romario Clark DO) COPD (chronic obstructive pulmonary disease) Depression Gastrointestinal stromal tumor (GIST) of stomach H/O prostate cancer Hyperlipidemia Hypertension Hypothyroidism Multiple sclerosis Pneumonia due to 2019-nCoV Surgical History (Updated 12/30/20 @ 16:00 by Prateek Moore MD) H/O circumcision H/O colonoscopy 04/2019: Repeat in 5 years H/O esophagogastroduodenoscopy 04/2019 H/O neck surgery H/O resection of stomach Laparoscopic partial resection for gist tumor the patient History of parathyroid surgery Family History Sister Bleeding disorder Other Cancer Diabetes Heart disease Denies family history of Anesthesia complication Social History Smoking and tobacco status: former smoker Alcohol intake: never Household members: spouse Marital status: Current occupational status: retired History of recent travel: No Physical Exam Const: COMMON NORMALS: no acute distress, patient oriented x3 and alert GENERAL APPEARANCE: cooperative ORIENTATION/CONSCIOUSNESS: Yes awake, Yes oriented to person, Yes oriented to place and Yes oriented to time HENMT: COMMON NORMALS: normocephalic, atraumatic, external ears normal, Normal external nose present and moist oral mucous membranes HEAD & SCALP: normal to inspection, normocephalic and atraumatic NOSE: Normal external nose present GENERAL EAR: hearing grossly impaired EXTERNAL EAR: Yes external ears normal Eye: COMMON NORMALS: Equal, round and reactive pupils present, EOMs intact bilaterally, conjunctivae normal and no scleral icterus GENERAL EYE: appearance normal, both eyes and all related structures EYELID: eyelids normal CONJUNCTIVA: Yes conjunctivae normal SCLERA: sclerae normal PUPIL: Yes Equal, round and reactive pupils present Neck/C-Spine: COMMON NORMALS: full ROM, supple and no JVD GENERAL: Yes normal visual inspection Lymph: LYMPHATIC: no lymphadenopathy noted and no lymphedema noted Chest: COMMONS NORMALS: normal inspection of the chest Resp: COMMON NORMALS: normal respiratory effort, No retractions and No use of accessory muscles Cardio: COMMON NORMALS: no JVD; negative for regular rate (Regular rate and rhythm.) and negative for regular rhythm RATE: abnormal rate (Regular rate and rhythm.) RHYTHM: abnormal rhythm GI: COMMON NORMALS: Normal to inspection, nondistended, normoactive bowel sounds present : COMMON NORMALS: Yes no CVA tenderness BLADDER/KIDNEY EXAM: Yes no CVA tenderness Back/Pelvis: COMMON NORMALS: no CVA tenderness and thoracic and lumbar spine normal to inspection Extremity: COMMON NORMALS: normal to inspection, full ROM and capillary refill normal GENERAL: Yes normal exam except as noted Neuro: COMMON NORMALS: patient oriented x3, CN's II-XII intact bilaterally, moves all extremities, no focal motor deficits, no sensory deficits noted and gait normal SENSORIUM/ORIENTATION: Yes alert, Yes oriented to person, Yes oriented to place and Yes oriented to time Psych: COMMON NORMALS: mental status grossly normal, Normal thought process present, cooperative and normal affect THOUGHT PROCESS: Normal thought process present Skin: COMMON NORMALS: no rashes or lesions noted and no wounds GENERAL SKIN EXAM: no rashes or lesions noted Course Vital Signs: Vital signs: Vital Signs Temperature 98.5 F 10/25/21 13:42 Pulse Rate 85 10/25/21 14:30 Respiratory Rate 20 H 10/25/21 14:30 Blood Pressure 141/88 10/25/21 14:30 Pulse Oximetry 96 10/25/21 14:17 MDM - Chest Pain Medical Decision Making 75-year-old male presenting today with chest pain. EKG with evidence of atrial fibrillation with rapid ventricular response. Patient given 10 mg of diltiazem with improvement of RVR. Initial troponin is slightly elevated. CBC is unremarkable. CMP with renal insufficiency which appears to be patient's baseline. TSH is moderately elevated. Will admit to the hospital for new onset atrial fibrillation. Lab Data : 10/25/21 14:26 10/25/21 14:26 Laboratory Results WBC 8.8 10^3/uL (4.0-10.0) 10/25/21 14:26 RBC 5.66 10^6/uL (4.1-5.3) H 10/25/21 14:26 Hgb 16.0 g/dL (11.7-16.6) 10/25/21 14: Hct 49.4 % (42.0-52.0) 10/25/21 14: MCV 87.3 fl (80-94) 10/25/21 14: MCH 28.3 pg (28.0-34.0) 10/25/21 14: MCHC 32.4 g/dL (30.0-36.0) 10/25/21 14: RDW 13.2 % (12.1-15.1) 10/25/21 14: Plt Count 193 10^3/cmm (130-400) 10/25/21 14: MPV 12.1 fL (7.4-10.4) H 10/25/21 14: Neut % (Auto) 63.8 % 10/25/21 14: Lymph % (Auto) 21.3 % 10/25/21 14:26 [place] % (Auto) 8.6 % 10/25/21 14:26 Eos % (Auto) 4.3 % 10/25/21 14:26 Baso % (Auto) 1.4 % 10/25/21 14: Neut # (Auto) 5.61 10^3/uL (1.8-7.7) 10/25/21 14: Lymph # (Auto) 1.9 10^3/uL (0.8-4.8) 10/25/21 14: [place] # (Auto) 0.8 10^3/uL (0.2-0.9) 10/25/21 14:26 Eos # (Auto) 0.4 10^3/uL (0.0-0.8) 10/25/21 14:26 Baso # (Auto) 0.1 10^3/uL (0.0-0.1) 10/25/21 14:26 Nucleated RBC % (auto) 0 % 10/25/21 14: Nucleated RBCs # 0.0 /100WBC 10/25/21 14:26 D-Dimer 0.37 ug/mIFEU (0-0.59) 10/25/21 14:26 Sodium 141 mmol/L (136-145) 10/25/21 14:26 Potassium 3.9 mmol/L (3.5-5.1) 10/25/21 14:26 Chloride 103 mmol/L (98-107) 10/25/21 14: Carbon Dioxide 26 mmol/L (22-29) 10/25/21 14:26 Anion Gap 15.9 (5-19) 10/25/21 14:26 BUN 15 mg/dL (8-23) 10/25/21 14:26 Creatinine 1.4 mg/dL (0.7-1.2) H 10/25/21 14:26 GFR Calculation Not Reportable 10/25/21 14:26 Glucose 94 mg/dL (65-115) 10/25/21 14:26 Calculated Osmolality 293 mOsm/kg (285-295) 10/25/21 14: Calcium 9.3 mg/dL (8.5-10.5) 10/25/21 14:26 Total Bilirubin 0.4 mg/dL (0.15-1.2) 10/25/21 14:26 AST 11 U/L (0-40) 10/25/21 14:26 ALT 15 U/L (0-41) 10/25/21 14:26 Alkaline Phosphatase 108 U/L (40-130) 10/25/21 14:26 Troponin T Baseline 24 ng/L (0-15) H 10/25/21 14:26 Total Protein 7.8 g/dL (6.6-8.7) 10/25/21 14:26 Albumin 4.2 g/dL (3.5-5.2) 10/25/21 14:26 Globulin 3.6 g/dL (1.3-4.6) 10/25/21 14:26 TSH 5.08 uIU/mL (0.27-4.20) H 10/25/21 14:26 Discharge Plan Discharge Patient Disposition: Admitted As Inpatient Clinical Impression: Atrial fibrillation, Acute renal insufficiency Condition: Stable Discharge Diet: Advance as tolerated Discharge Activity: Resume usual activity Coding Level of Care Code ED Weatherization Director for [facility] Fwd Exam Comprehensive
--- NOTE | 2021-10-25 15:57 | PC.NURSE ---
pt resting in bed, assisted pt in adjusting positioning in bed. warm blanket brought to pt
--- NOTE | 2021-10-25 16:01 | ECG_ITS ---
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 Measurements Intervals [place] Rate: 97 P: [place]: QRS: 33 QRSD: 95 T: 23 QT: 363 QTc: 462 Interpretive Statements ATRIAL FIBRILLATION ABNORMAL RHYTHM ECG Compared to ECG 10/25/2021 13:40:56 ST (T wave) deviation no longer present Electronically Signed On 10-25-2021 16:36:10 CDT by Floyd Levin M.D. [id number]
--- NOTE | 2021-10-25 16:02 | USCV_ITS ---
Elpidio Lopez Age: 75 Gender: M : 1945 Exam Date: 10/25/2021 16:20 Ordering Phys: Baljit Chávez MD Technologist: Venice Feliciano [place] [facility] [place] Afib with RVR BP: 162 / 87 HR: 98 Rhythm: Atrial fibrillation Technical Quality: Adequate MEASUREMENTS (Male / Female) Normal Values 2D ECHO LV Diastolic Diameter PLAX 3.3 cm 4.2 - 5.9 / 3.9 - 5.3 cm LV Systolic Diameter PLAX 2.3 cm LV Chamber Size 4.6 cm IVS Diastolic Thickness 1.1 cm 0.6 - 1.0 / 0.6 - 0.9 cm IVS Systolic Thickness 1.3 cm LVPW Diastolic Thickness 1.4 cm 0.6 - 1.0 / 0.6 - 0.9 cm LVPW Systolic Thickness 1.7 cm RV Chamber Size 3.2 cm LVOT Diameter 2.1 cm LV Ejection Fraction 2D Teich 60.0 % LV Ejection Fraction MOD 2C 56.9 % LV Ejection Fraction 2C AL 55.9 % LA Diameter 3.9 cm LA Width 3.2 cm LA Height 4.4 cm RA Width 3.6 cm RA Height 3.9 cm Aorta at Sinotubular Diameter 3.1 cm IVC Diameter 2.1 cm M-MODE Aortic Annulus Diameter 3.7 cm LA Ao Ratio MM 1.2 MV E Point Septal Separation 0.5 cm DOPPLER AV Peak Velocity 120.0 cm/s LVOT Peak Velocity 87.0 cm/s AV Area Cont Eq vti 2.8 cm squared AV Area Cont Eq pk 2.4 cm squared MV Area PHT 3.4 cm squared MV E' Velocity 45.0 cm/s Mitral E to MV E' Ratio 7.5 Mitral E to LV E' Lateral Ratio 7.0 Mitral E to LV E' Septal Ratio 8.0 TV Peak E Velocity 55.0 cm/s Right Atrial Pressure 3.0 mmHg PV Peak Velocity 79.0 cm/s FINDINGS Left Ventricle Normal left ventricular cavity size. Mildly increased left ventricular wall thickness. Normal left ventricular systolic function. Left ventricular ejection fraction is estimated at 55 %. No diagnostic regional wall motion abnormalities. Rhythm precludes evaluation of diastolic function. Right Ventricle Normal right ventricular size and systolic function. Right Atrium Normal right atrial size. Left Atrium Mildly increased left atrial size. Mitral Valve Structurally normal mitral valve. No mitral valve stenosis. Trace mitral valve regurgitation. Aortic Valve Structurally normal trileaflet aortic valve. No aortic valve stenosis. Trace to mild aortic valve regurgitation. Tricuspid Valve Tricuspid valve not well visualized. Pulmonic Valve Pulmonic valve not well visualized. Pericardium No pericardial effusion. Aorta Normal size aortic root and proximal ascending aorta. IVC Normal sized inferior vena cava. CONCLUSIONS 1. Normal left ventricular cavity size and systolic function. Mildly increased left ventricular wall thickness. Left ventricular ejection fraction is estimated at 55 %. No diagnostic regional wall motion abnormalities. 2. Normal right ventricular size and systolic function. 3. Trace to mild aortic valve regurgitation. 4. Mildly increased left atrial size. 5. No prior similar studies to compare. Candace Whitaker MD (Electronically Signed) Final Date: 26 October 2021 08:38 S
--- NOTE | 2021-10-25 16:03 | P.HP_ITS ---
Providers/Chief Complaint Primary Care Provider: Marcos Gibson DO Chief Complaint: chest pain History of Present Illness Elpidio Lopez is a 75 year old male with PMH of COPD, HTN, GIST, Hypothyroidism, MS, recent history of thyroidectomy presented to the ER today after he suffered left-sided chest pain which was nonradiating which woke him up from sleep. On checking his vitals at that time he found out his heart rate was running very fast so he presented to the ER. In the ER he was found to have atrial fibrillation with rapid ventricular response with heart rate going up to 130s for which he required 10 mg of IV Cardizem after which his heart rate settled down into 80s. On my examination patient is chest pain-free. He denies of having any palpitations, dizziness, shortness of breath during the episode. Denies of having any prior history of atrial fibrillation. Denies of any changes in his medications recently other than addition of amantadine for MS. Review of Systems General: Reports: 10 or more systems reviewed and unremarkable except in HPI and below Const: Denies: fever(s), chills, body aches, change in appetite, change in weight, malaise, night sweats, diaphoresis, change in sleep pattern, daytime sleepiness or snoring Eyes: Denies: change in vision, blurry vision, photophobia, eye discomfort or eye discharge ENMT: Denies: throat pain, enlarged tonsils, hoarseness, mouth pain, oral sores, dry mouth, tinnitus, nasal congestion or post nasal drip Card: Denies: chest pain, palpitations, irregular heart rhythm, edema, swelling of feet/ankles, lightheadedness, syncope, pre-syncope, dyspnea on exertion, orthopnea, leg pain with exertion or acrocyanosis Resp: Denies: dyspnea, productive cough, non-productive cough, wheezing, stridor, pain on inspiration, change in phlegm color, hemoptysis or chest congestion GI: Denies: abdominal pain, nausea, vomiting, hematemesis, coffee ground emesis, dysphagia, heartburn, diarrhea, constipation, bloating, GI cramping, change in bowel habits, pain on defecation, hematochezia or melena : Denies: flank pain, difficulty urinating, dysuria, urinary frequency, u rinary urgency, urinary hesitancy, urinary dribbling, difficulty starting urination, change in urine stream, nocturia or hematuria Musc: Denies: neck pain, back pain, extremity pain, joint pain, joint swelling, joint redness, joint stiffness or limited range of motion Neuro: Denies: headache(s), numbness in extremities, weakness in extremities, sensory changes, lack of coordination, difficulty walking, frequent falls, dizziness, vertigo, confusion, Slurred speech present, difficulty communicating thoughts or seizure-like activity Psych: Denies: anxiety, depression, mood swings, panic attacks, hopelessness or irritability Endo: Denies: polyuria, polydipsia, tired all the time, cold intolerance, excessive sweating, flushing or heat intolerance Dov/Lymph: Denies: easy bruising or easy bleeding All/Imm: Denies: tongue swelling, facial swelling or acute wheezing Medications/Allergies Home Medications Medication Instructions Recorded Confirmed Last Taken Type amlodipine 10 mg tablet 10 mg PO DAILY 04/17/19 10/25/21 10/25/21 History azelastine 137 mcg (0.1 %) nasal 2 spray intranasal BID PRN Allergy 04/17/19 10/25/21 03/08/20 History spray aerosol Symptoms biotin 1 mg capsule 1 mg PO DAILY 04/17/19 10/25/21 03/10/20 History bupropion HCl 300 mg 24 hr tablet, 300 mg PO DAILY 04/17/19 10/25/21 10/25/21 History extended release hydrochlorothiazide 25 mg tablet 25 mg PO DAILY 04/17/19 10/25/21 10/25/21 History hydroxyzine HCl 50 mg tablet 50 mg PO BEDTIME 04/17/19 10/25/21 10/24/21 History levothyroxine 88 mcg capsule 88 mcg PO DAILY 04/17/19 10/25/21 10/25/21 History lisinopril 40 mg tablet 40 mg PO DAILY 04/17/19 10/25/21 10/24/21 History metoprolol tartrate 50 mg tablet 25 mg PO BID 04/17/19 10/25/21 10/25/21 History modafinil 200 mg tablet 200 mg PO DAILY 04/17/19 10/25/21 10/25/21 History pantoprazole 40 mg tablet,delayed 40 mg PO DAILY 04/17/19 10/25/21 10/25/21 History release clonidine HCl 0.1 mg tablet 0.1 mg PO BID 04/20/19 10/25/21 10/25/21 History lovastatin 40 mg tablet 40 mg PO DAILY 03/11/20 10/25/21 10/24/21 History melatonin 5 mg tablet 5 mg PO BEDTIME ##0 03/11/20 10/25/21 10/24/21 History ipratropium bromide 21 mcg (0.03 2 spray intranasal BID 03/25/20 10/25/21 Unknown History %) nasal spray amantadine HCl 100 mg tablet 100 mg PO DAILY 10/25/21 10/25/21 10/25/21 History artificial 3 spray mucous membrane Q4H PRN 10/25/21 10/25/21 Unknown History saliva(carboxymethylcellulose-electrolytes) Dry Mouth spray pump cholecalciferol (vitamin D3) 25 25 mcg PO DAILY 10/25/21 10/25/21 10/25/21 History mcg (1,000 unit) tablet (Vitamin D3) cyanocobalamin (vitamin B-12) 250 250 mcg PO DAILY 10/25/21 10/25/21 10/25/21 History mcg tablet (Vitamin B-12) doxylamine succinate 25 mg tablet 25 mg PO BEDTIME PRN Sleep 10/25/21 10/25/21 10/24/21 History mirtazapine 45 mg tablet 45 mg PO BEDTIME 10/25/21 10/25/21 10/24/21 History ropinirole 2 mg tablet 2 mg PO BEDTIME 10/25/21 10/25/21 10/24/21 History tamsulosin 0.4 mg capsule 0.8 mg PO BEDTIME 10/25/21 10/25/21 10/24/21 History Allergies Allergy/AdvReac Type Severity Reaction Status Date / Time No Known Allergies Allergy Verified 10/25/21 14:58 PFSH Acute PFSH: Medical History (Updated 10/25/21 @ 17:25 by Baljit Chávez MD) CKD (chronic kidney disease) COPD (chronic obstructive pulmonary disease) Depression Gastrointestinal stromal tumor (GIST) of stomach H/O prostate cancer Hyperlipidemia Hypertension Hypothyroidism Multiple sclerosis Pneumonia due to 2019-nCoV Surgical History (Updated 10/25/21 @ 17:25 by Baljit Chávez MD) H/O circumcision H/O colonoscopy 04/2019: Repeat in 5 years H/O esophagogastroduodenoscopy 04/2019 H/O neck surgery H/O resection of stomach Laparoscopic partial resection for gist tumor the patient History of parathyroid surgery History of thyroidectomy Family History Sister Bleeding disorder Other Cancer Diabetes Heart disease Denies family history of Anesthesia complication Social History Smoking and tobacco status: former smoker Alcohol intake: never Household members: spouse Marital status: Current occupational status: retired History of recent travel: No Vitals/I&O/Wt Last Vital Signs Temp 98.5 F 10/25/21 13:42 Pulse 85 10/25/21 14:30 Resp 20 H 10/25/21 14:30 BP 141/88 10/25/21 14:30 Pulse Ox 96 10/25/21 14:17 Weight last 48 hrs Weight 106.594 kg Physical Exam Narrative: General: No acute distress, AO x3, pleasant, HEENT: PERRLA, pupils bilaterally equal and reactive Chest: Normal vesicular breath sounds bilaterally, no added sound CVS: S1-S2 irregularly irregular no tachycardia, no gallops, no rubs Abdomen: Soft, nontender, no organomegaly, bowel sounds present, morbidly obese Neuro: No focal deficits, no facial deformity, AO x3, power 5/5 in all limbs Data : 10/25/21 14:26 10/25/21 14:26 A&P Assessment and plan (1) Atrial fibrillation: New diagnosis. Rate controlled currently. Increase home dose of metoprolol to 50 mg twice daily. Will uptitrate with target heart rate of less than 100. Echocardiogram. Check urine drug screen, free T3, free T4. TSH mildly elevated. Discussed in detail regarding anticoagulation for stroke prevention. Patient verbalized understanding and is agreeable. We will start on Eliquis 5 mg twice daily. Status: Acute (2) CKD (chronic kidney disease): Baseline creatinine since last admission over a year ago seems to be from 1.2- 1.4. Currently 1.4. Renal ultrasound, urinalysis, urine lites, urine eosinophils Status: Acute (3) COPD (chronic obstructive pulmonary disease): No acute distress. Status: Acute (4) Hypothyroidism: History of thyroidectomy. Continue home dose of levothyroxine 88 mcg daily. Follow-up free T3 and free T4 results and uptitrate dose accordingly. Status: Acute (5) Chest pain: During palpitations and rapid ventricular response. Denies any past history of stress test or CAD. Patient does have risk factors including high blood pressure and family history of heart disease. Patient will require outpatient stress test. Echocardiogram as above to monitor for EF and regional wall motion abnormality. Status: Acute Plan Hypertension: Goal blood pressure less than 140/90 mmHg. Continue home dose of clonidine, lisinopril, modafinil. Continue other chronic medications. Analgesia: Tylenol Glycemic control: Not needed, check A1c Nutrition: Regular diet CODE STATUS: Full code PUD prophylaxis: Protonix DVT prophylaxis: Eliquis will suffice as DVT prophylaxis Discharge planning: Home with caregiver once medically stable. Admit to CSU. This documentation was created by [employer] chalk molding machine operator software. Every effort was made to ensure accuracy of chalk molding machine operator. Any obvious errors or omissions should be clarified with the author of the document. Attestations Medical Necessity Statement*: Admission for more than 2 midnights for management of atrial fibrillation with rapid ventricular response Time Spent in Patient Care: Greater than 35 minutes Coding Level of Care Code Acute Window Machine Operator for Chg Fwd Diagnoses Atrial fibrillation I48.91 CKD (chronic kidney disease) N18.9 COPD (chronic obstructive pulmonary disease) J44.9 Hypothyroidism E03.9 Chest pain R07.9
[2021-10-25 16:46] LABS: Add Urine Microscopic? NO; Charge for UA Resulting for Rev
[2021-10-25 16:57] LABS: Bilirubin Urine Neg (Negative); Blood Urine Neg (Negative); Glucose Urine UA Norm (Normal); Ketones Urine Negative (Negative); Leukocyte Esterase Urine Negative (Negative); Nitrate Urine Negative (Negative); Protein Urine Neg (Negative); Specific Gravity, Urine 1.005 (1.005-1.030); Urine Appearance Clear (CLEAR); Urine Color Straw (Yellow); Urobilinogen Urine Norm (Negative); pH Urine 6 (5-7)
[2021-10-25 17:02] LABS: Amphetamines Screen Urine Negative (Negative); Barbiturates Screen Urine Negative (Negative); Benzodiazepines Screen Urine Negative (Negative); Cocaine Screen Urine Negative (Negative); Opiate Screen Urine Negative (Negative); PCP Screen Urine Negative (Negative); THC Screen Urine Negative (Negative)
[2021-10-25 17:05] LABS: Adenovirus Not Detected (NOT DETECT); Chlamydia Pneumoniae Not Detected (NOT DETECT); Coronavirus 229E,HKU1,NL63,OC4 Not Detected (NOT DETECT); Human Metapneumovirus Not Detected (NOT DETECT); Human Rhinovirus/Enterovirus Not Detected (NOT DETECT); Influenza A Not Detected (NOT DETECT); Influenza A H1 Not Detected (NOT DETECT); Influenza A H1-2009 Not Detected (NOT DETECT); Influenza A H3 Not Detected (NOT DETECT); Influenza B Not Detected (NOT DETECT); Mycoplasma Pneumoniae Not Detected (NOT DETECT); Parainfluenza Virus Type 1 Not Detected (NOT DETECT); Parainfluenza Virus Type 2 Not Detected (NOT DETECT); Parainfluenza Virus Type 3 Not Detected (NOT DETECT); Parainfluenza Virus Type 4 Not Detected (NOT DETECT); Respiratory Syncytial Virus A Not Detected (NOT DETECT); Respiratory Syncytial Virus B Not Detected (NOT DETECT); SARS-COV-2 Not Detected (NOT DETECT)
[2021-10-25 17:29] LABS: Troponin 5 2HR 21.71 ng/L (0-15); Troponin 5 2HR Delta -2.29 ABS# (0-10)
[2021-10-25 18:15] LABS: Magnesium 2.1 mg/dL (1.7-2.3); Vitamin B12 900 pg/mL (232-1245)
[2021-10-25 18:16] LABS: Folate Level 7.1 ng/mL (4.5-32.2)
[2021-10-25] MEDS: cloNIDine 0.1 mg Tablet PO (18:52)
[2021-10-25] MEDS: metoprolol tartrate 50 mg Tablet 75 MG PO (18:53)
[2021-10-25 19:02] LABS: T3 Free 2.5 PG/ML (2.0-4.4)
--- NOTE | 2021-10-25 19:15 | PC.NURSE ---
report called to JESSIE Mcdonald on Med Surg
--- NOTE | 2021-10-25 19:18 | PC.NURSE ---
report given to JESSIE Blas
[2021-10-25 20:16] LABS: Iron 83 ug/dL (59-158); Percent Saturation 28.5 % (20-50); Total Iron Binding Capacity 291 mcg/dl; Unsaturated Iron Binding 208 ug/dL (112-347)
[2021-10-25 20:20] LABS: Troponin 5 6HR 24.01 ng/L (0-15)
[2021-10-25 20:29] LABS: Troponin 5 6HR Delta 0.01 ng/L (0-12)
--- NOTE | 2021-10-25 20:58 | ECG_ITS ---
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 Measurements Intervals [place] Rate: 90 P: [place]: QRS: 27 QRSD: 94 T: 26 QT: 364 QTc: 446 Interpretive Statements ATRIAL FIBRILLATION ABNORMAL RHYTHM ECG Compared to ECG 10/25/2021 16:01:34 No significant changes Electronically Signed On 10-27-2021 6:34:24 CDT by Candace Whitaker M.D. [id number]
[2021-10-25] MEDS: mirtazapine 15 mg Tablet 45 MG PO (21:54)
[2021-10-25] MEDS: ropinirole 2 mg Tablet PO (21:54)
[2021-10-25] MEDS: hyDROXYzine 25 mg Capsule 50 MG PO (21:54)
[2021-10-25] MEDS: tamsulosin 0.4 mg Capsule 0.8 MG PO (21:54)
[2021-10-25] MEDS: sodium chloride 0.9% 1,000 ML 75 ML IV (21:56)
[2021-10-26] VITALS (8 sets, daily range): BP systolic 112–158; BP diastolic 71–98; PULSE 60–93; RESP 16–18; TEMP 36.4–36.8; O2SAT 94–96
[2021-10-26 05:41] LABS: Basophils # 0.1 10^3/uL (0.0-0.1); Basophils % 1.2 %; Eosinophils # 0.5 10^3/uL (0.0-0.8); Eosinophils % 5.1 %; Hematocrit 47.6 % (42.0-52.0); Hemoglobin 15.6 g/dL (11.7-16.6); Lymphocytes # 2.3 10^3/uL (0.8-4.8); Lymphocytes % 23.5 %; Mean Corpuscular HGB Conc 32.8 g/dL (30.0-36.0); Mean Corpuscular Hemoglobin 29.1 pg (28.0-34.0); Mean Corpuscular Volume 88.6 fl (80-94); Monocytes % 10.2 %; Neutrophils # 5.89 10^3/uL (1.8-7.7); Neutrophils % 59.3 %; Nucleated Red Blood Cells % 0 %; Platelet Count 166 10^3/cmm (130-400); Red Blood Count 5.37 10^6/uL (4.1-5.3); Red Cell Distribution Width 13.4 % (12.1-15.1); White Blood Count 9.9 10^3/uL (4.0-10.0)
[2021-10-26 06:23] LABS: Alanine Aminotransferase 15 U/L (0-41); Albumin Level 3.4 g/dL (3.5-5.2); Alkaline Phosphatase 97 U/L (40-130); Blood Urea Nitrogen 16 mg/dL (8-23); Calcium 8.8 mg/dL (8.5-10.5); Carbon Dioxide 23 mmol/L (22-29); Chloride 105 mmol/L (98-107); Chol HDL Ratio 3.79 mg/dL (1.0-5.00); Cholesterol 163 mg/dL (0-200); Globulin 3.7 g/dL (1.3-4.6); Glucose 97 mg/dL (65-115); HDL Cholesterol 43 mg/dL (60-100); LDL Cholesterol Calculated 68 mg/dL (50-129); Magnesium 1.9 mg/dL (1.7-2.3); Osmolality Calculated 291 mOsm/kg (285-295); Sodium 140 mmol/L (136-145); Total Bilirubin 0.3 mg/dL (0.15-1.2); Total Protein 7.1 g/dL (6.6-8.7); Triglycerides 262 mg/dL (0-150); VLDL Cholestrol Calculation 52 mg/dL (0-30)
[2021-10-26 07:10] LABS: Estmated Average Glucose 117; Hemoglobin A1C 5.7 % (4.0-6.0)
[2021-10-26 07:20] LABS: Anion Gap 15.9 (5-19); Aspartate Amino Transferase 17 U/L (0-40); Potassium 3.9 mmol/L (3.5-5.1)
[2021-10-26] MEDS: dilTIAZem 30 mg Tablet PO ×2 (08:28→13:01)
[2021-10-26] MEDS: hydroCHLOROthiazide 25 mg Tablet PO (08:29)
[2021-10-26] MEDS: levothyroxine 88 mcg Tablet PO (08:29)
[2021-10-26] MEDS: pantoprazole DR 40 mg Tablet PO (08:29)
[2021-10-26] MEDS: cloNIDine 0.1 mg Tablet PO (08:29)
[2021-10-26] MEDS: buPROPion XL (24 HR) 300 mg Tablet PO (08:29)
[2021-10-26] MEDS: lisinopril 20 mg Tablet 40 MG PO (08:30)
[2021-10-26] MEDS: metoprolol tartrate 50 mg Tablet 75 MG PO (08:30)
[2021-10-26] MEDS: atorvastatin 40 mg Tablet 20 MG PO (08:30)
[2021-10-26] MEDS: cyanocobalamin 1,000 mcg Tablet 250 MCG PO (08:31)
--- NOTE | 2021-10-26 10:07 | PC.CHAP ---
Pastoral Care Encounter/Spiritual Assessment Type of Contact [] Declined industrial analyst visit [] Patient/Family/Request visit [] Outpatient visit [] Follow-up visit [] Physician referral [] Code/Alert [x] Routine visit [] Staff referral [] Actively dying [] Patient sleeping [] Family support [] [] Out of room [] Palliative care [] [x] Receiving care in room [] Pre-surgical visit [] Trauma [] Long length of stay [] ICU visit [] Other: Relational/Emotional Strength [x] Patient feels connected with others/family/visitors/staff [] Distress [] Loneliness/isolation [] Abandonment Spirituality of Patient [] Person of Reyna [] Attends Yazidism of their Reyna [] Believes in Prayer [] Reads Bible or Buddhism materials [] There are Spiritual issues to be addressed Process Control Specialist Interventions [] Prayer [] Active listening [] Non-anxious presence [] Spiritual/emotional support [] Crisis/trauma care [] Spiritual counseling [] Bereavement support [] Provided bereavement packet [] Provided Bible/devotional materials [] Provided toy/stuffed animal, coloring book to patient or family member [] Provided Communion [] Anointing/[place] [] Salvation [] Completed spiritual assessment [] Other: Impact on Illness or Injury [] Angry [] Fearful [x] Anxious [] Often cries [] Exhaustion [] Unable to work [] Unable to attend sikhism [] Unable to walk/stand [] Unable to read [] Unable to drive [] Unable to eat/drink [] Unable to sleep [] Unable to be with family [] Patient intubated [] Other: Summary he is dealing with his heart waiting doctodd sheehan results well get to go home at some point Time spent with patient 10 mins
[2021-10-26] MEDS: acetaminophen 325 mg Tablet 650 MG PO (10:58)
[2021-10-26] MEDS: apixaban 5 mg Tablet PO (10:59)
--- NOTE | 2021-10-26 15:16 | P.DS_ITS ---
Discharge Providers Date of Admission: 10/25/21 15:43 Date of Discharge: October 26, 2021 Attending Provider at Admission: Baljit Chávez MD Attending Provider at Discharge: Baljit Chávez MD Primary Care Provider: Marcos Gibson DO Diagnoses at Discharge Discharge Diagnosis (1) Atrial fibrillation: Status: Acute (2) CKD (chronic kidney disease): Status: Acute (3) COPD (chronic obstructive pulmonary disease): Status: Acute (4) Hypothyroidism: Status: Acute (5) Chest pain: Status: Acute Reason for Visit Reason for Visit: chest pain Hospital Course Hospital Course Elpidio Lopez is a 75 year old male with PMH of COPD, HTN, GIST, Hypothyroidism, MS, recent history of thyroidectomy presented to the ER today after he suffered left-sided chest pain which was nonradiating which woke him up from sleep.? On checking his vitals at that time he found out his heart rate was running very fast so he presented to the ER.? In the ER he was found to have atrial fibrillation with rapid ventricular response with heart rate going up to 130s for which he required 10 mg of IV Cardizem after which his heart rate settled down into 80s.? On my examination patient is chest pain-free.? He denies of having any palpitations, dizziness, shortness of breath during the episode.? Denies of having any prior history of atrial fibrillation.? Denies of any changes in his medications recently other than addition of amantadine for MS. Patient was admitted to cardiac stepdown unit for further evaluation and management of new onset atrial fibrillation with rapid ventricular response. His home dose of metoprolol was increased. His heart rate will settle down at rest but still having tachycardia on exertion so he was started on oral Cardizem after which his heart rate is better controlled. After discussion he was also started on anticoagulation for stroke prevention. Patient's hospitalization was otherwise unremarkable. Echocardiogram was done which showed a normal EF without any diastolic dysfunction or valvular abnormality. He is been discharged on metoprolol 75 mg twice daily, oral Cardizem 180 mg daily. Oral amlodipine has been stopped. He is to take Eliquis 5 mg twice daily for anticoagulation. He is to follow-up with his primary care provider within next 1 week with a blood pressure diary for further regiment of antihypertensive needed. Physical Exam Narrative: General: No acute distress, AO x3, pleasant, HEENT: PERRLA, pupils bilaterally equal and reactive Chest: Normal vesicular breath sounds bilaterally, no added sound CVS: S1-S2 irregularly irregular no tachycardia, no gallops, no rubs Abdomen: Soft, nontender, no organomegaly, bowel sounds present, morbidly obese Neuro: No focal deficits, no facial deformity, AO x3, power 5/5 in all limbs Discharge Data Studies Completed and Pending Completed Studies During Hospitalization Category Date Time Status CV. echo complete* [id number] Routine Ultrasound 10/25/21 16:02 Completed Echocardiogram: CONCLUSIONS ?1. Normal left ventricular cavity size and systolic function. ?Mildly increased left ventricular wall thickness. Left ?ventricular ejection fraction is estimated at 55 %. No ?diagnostic regional wall motion abnormalities. ?2. Normal right ventricular size and systolic function. ?3. Trace to mild aortic valve regurgitation. ?4. Mildly increased left atrial size. ?5. No prior similar studies to compare. ?Candace Whitaker MD ?(Electronically Signed) ?Final Date:? ? ? 26 October 2021 ? 08:38 Laboratory Results WBC 9.9 10^3/uL (4.0-10.0) 10/26/21 05:20 RBC 5.37 10^6/uL (4.1-5.3) H 10/26/21 05:20 Hgb 15.6 g/dL (11.7-16.6) 10/26/21 05:20 Hct 47.6 % (42.0-52.0) 10/26/21 05:20 MCV 88.6 fl (80-94) 10/26/21 05:20 MCH 29.1 pg (28.0-34.0) 10/26/21 05:20 MCHC 32.8 g/dL (30.0-36.0) 10/26/21 05:20 RDW 13.4 % (12.1-15.1) 10/26/21 05:20 Plt Count 166 10^3/cmm (130-400) 10/26/21 05:20 MPV 12.0 fL (7.4-10.4) H 10/26/21 05:20 Neut % (Auto) 59.3 % 10/26/21 05:20 Lymph % (Auto) 23.5 % 10/26/21 05:20 Rowan % (Auto) 10.2 % 10/26/21 05:20 Eos % (Auto) 5.1 % 10/26/21 05:20 Baso % (Auto) 1.2 % 10/26/21 05:20 Neut # (Auto) 5.89 10^3/uL (1.8-7.7) 10/26/21 05:20 Lymph # (Auto) 2.3 10^3/uL (0.8-4.8) 10/26/21 05:20 Rowan # (Auto) 1.0 10^3/uL (0.2-0.9) H 10/26/21 05:20 Eos # (Auto) 0.5 10^3/uL (0.0-0.8) 10/26/21 05:20 Baso # (Auto) 0.1 10^3/uL (0.0-0.1) 10/26/21 05:20 Nucleated RBC % (auto) 0 % 10/26/21 05:20 Nucleated RBCs # 0.0 /100WBC 10/26/21 05:20 D-Dimer 0.37 ug/mIFEU (0-0.59) 10/25/21 14:26 Sodium 140 mmol/L (136-145) 10/26/21 05:20 Potassium 3.9 mmol/L (3.5-5.1) 10/26/21 05:20 Chloride 105 mmol/L (98-107) 10/26/21 05:20 Carbon Dioxide 23 mmol/L (22-29) 10/26/21 05:20 Anion Gap 15.9 (5-19) 10/26/21 05:20 BUN 16 mg/dL (8-23) 10/26/21 05:20 Creatinine 1.3 mg/dL (0.7-1.2) H 10/26/21 05:20 GFR Calculation Not Reportable 10/26/21 05:20 Glucose 97 mg/dL (65-115) 10/26/21 05:20 Estimat Average Glucose 117 10/26/21 05:20 Hemoglobin A1c 5.7 % (4.0-6.0) 10/26/21 05:20 Calculated Osmolality 291 mOsm/kg (285-295) 10/26/21 05:20 Calcium 8.8 mg/dL (8.5-10.5) 10/26/21 05:20 Magnesium 1.9 mg/dL (1.7-2.3) 10/26/21 05:20 Iron 83 ug/dL (59-158) 10/25/21 19:45 TIBC 291 mcg/dl 10/25/21 19:45 % Saturation 28.5 % (20-50) 10/25/21 19:45 Unsat Iron Binding 208 ug/dL (112-347) 10/25/21 19:45 Total Bilirubin 0.3 mg/dL (0.15-1.2) 10/26/21 05:20 AST 17 U/L (0-40) 10/26/21 05:20 ALT 15 U/L (0-41) 10/26/21 05:20 Alkaline Phosphatase 97 U/L (40-130) 10/26/21 05:20 Troponin T Baseline 24 ng/L (0-15) H 10/25/21 14:26 Troponin T 120 Minute 21.71 ng/L (0-15) H 10/25/21 16:43 Delta Troponin T -2.29 ABS# (0-10) L 10/25/21 16:43 Troponin T Hi Sens 6Hr 24.01 ng/L (0-15) H 10/25/21 19:42 Troponin T Hi Sens 6Hr Delta 0.01 ng/L (0-12) 10/25/21 19:42 Total Protein 7.1 g/dL (6.6-8.7) 10/26/21 05:20 Albumin 3.4 g/dL (3.5-5.2) L 10/26/21 05:20 Globulin 3.7 g/dL (1.3-4.6) 10/26/21 05:20 Triglycerides 262 mg/dL (0-150) H 10/26/21 05:20 Cholesterol 163 mg/dL (0-200) 10/26/21 05:20 LDL Cholesterol, Calc 68 mg/dL (50-129) 10/26/21 05:20 Total VLDL Cholesterol 52 mg/dL (0-30) H 10/26/21 05:20 HDL Cholesterol 43 mg/dL (60-100) L 10/26/21 05:20 Cholesterol/HDL Ratio 3.79 mg/dL (1.0-5.00) 10/26/21 05:20 Vitamin B12 900 pg/mL (232-1245) 10/25/21 14:26 Folate 7.1 ng/mL (4.5-32.2) 10/25/21 14: TSH 5.08 uIU/mL (0.27-4.20) H 10/25/21 14:26 Free T4 1.10 ng/dL (0.82-1.77) 10/25/21 14: Free T3 2.5 PG/ML (2.0-4.4) 10/25/21 14:26 Urine Color Straw (Yellow) 10/25/21 16:17 Urine Appearance Clear (CLEAR) 10/25/21 16:17 Urine pH 6 (5-7) 10/25/21 16:17 Ur Specific [place] 1.005 (1.005-1.030) 10/25/21 16:17 Urine Protein Neg (Negative) 10/25/21 16:17 Urine Glucose (UA) Norm (Normal) 10/25/21 16:17 Urine Ketones Negative (Negative) 10/25/21 16:17 Urine Blood Neg (Negative) 10/25/21 16:17 Urine Nitrate Negative (Negative) 10/25/21 16:17 Urine Bilirubin Neg (Negative) 10/25/21 16:17 Urine Urobilinogen Norm mg/dL (Negative) 10/25/21 16:17 Ur Leukocyte Esterase Negative (Negative) 10/25/21 16:17 Urine Opiates Screen Negative ng/mL (Negative) 10/25/21 16:17 Ur Barbiturates Screen Negative ng/mL (Negative) 10/25/21 16:17 Ur Phencyclidine Scrn Negative ng/mL (Negative) 10/25/21 16:17 Ur Amphetamines Screen Negative ng/mL (Negative) 10/25/21 16:17 U Benzodiazepines Scrn Negative ng/mL (Negative) 10/25/21 16:17 Urine Cocaine Screen Negative ng/mL (Negative) 10/25/21 16:17 U Marijuana (THC) Screen Negative ng/mL (Negative) 10/25/21 16:17 Coronavirus 229E (PCR) Not detected (NOT DETECT) 10/25/21 14:26 SARS-CoV-2 (PCR) Not detected (NOT DETECT) 10/25/21 14:26 Vitals Last Vital Signs Temp 98.3 F 10/26/21 12:00 Pulse 85 10/26/21 12:00 Resp 18 10/26/21 12:00 BP 112/71 10/26/21 12:00 Pulse Ox 96 10/26/21 12:00 O2 Del Method 10/26/21 12:00 Discharge Plan Discharge Patient Disposition: Home Condition: Stable Prescriptions: New Eliquis 5 mg Tablet 5 mg PO BID@0900,2100 Qty: 60 0RF diltiazem HCl [Cardizem CD] 180 mg capsule,extended release 24hr 180 mg PO DAILY Qty: 30 0RF Continued hydrochlorothiazide 25 mg tablet 25 mg PO DAILY bupropion HCl 300 mg tablet extended release 24 hr 300 mg PO DAILY lisinopril 40 mg tablet 40 mg PO DAILY levothyroxine 88 mcg capsule 88 mcg PO DAILY modafinil 200 mg tablet 200 mg PO DAILY biotin 1 mg capsule 1 mg PO DAILY hydroxyzine HCl 50 mg tablet 50 mg PO BEDTIME azelastine 137 mcg (0.1 %) aerosol,spray 2 spray INTRANASAL BID PRN (Reason: Allergy Symptoms) ipratropium bromide 0.03 % spray,non-aerosol 2 spray intranasal BID Rx Instructions: administer into each nostril pantoprazole 40 mg tablet,delayed release (DR/EC) 40 mg PO DAILY clonidine HCl 0.1 mg Tablet 0.1 mg PO BID lovastatin 40 mg Tablet 40 mg PO DAILY melatonin 5 mg Tablet 5 mg PO BEDTIME Qty: 0 ropinirole 2 mg Tablet 2 mg PO BEDTIME mirtazapine 45 mg Tablet 45 mg PO BEDTIME amantadine HCl 100 mg Tablet 100 mg PO DAILY Vitamin B-12 250 mcg Tablet 250 mcg PO DAILY tamsulosin 0.4 mg Capsule 0.8 mg PO BEDTIME doxylamine succinate 25 mg Tablet 25 mg PO BEDTIME PRN (Reason: Sleep) Vitamin D3 25 mcg (1,000 unit) Tablet 25 mcg PO DAILY artificial saliva (cmce-lytes) [place] With Pump 3 spray MUCOUS MEMBRANE Q4H PRN (Reason: Dry Mouth) Rx Instructions: administer while awake Changed metoprolol tartrate 50 mg tablet 75 mg PO BID 30 Days Qty: 90 0RF Discontinued amlodipine 10 mg tablet 10 mg PO DAILY Discharge Orders: Discharge Order (Routine); Ordered 10/26/21 Ordered By: Baljit Chávez Referrals: Marcos Gibson, [Primary Care Provider] - 1 week Discharge Diet: Advance as tolerated Discharge Activity: Resume usual activity Patient Instructions: Opioid Safety Activity Restrictions/Additional Instructions: Dose of metoprolol has been increased to 75 mg twice daily. Amlodipine has been stopped. Cardizem 180 mg has been added to your medication list. Please check your blood pressure daily and maintain a blood pressure log and follow with a primary care provider within next 1 week for further adjustment of antihypertensive needed. Eliquis is a blood thinner. Take 5 mg morning evening. Discharge Attestations Time Spent in Discharge Care*: greater than 30 min Specific Discharge Activities: educating patient, educating and/or supporting family/caregiver, discussing with top case assembler/social workers/dc planners, documenting/other paperwork and evaluating patient/reviewing data Status at Discharge: Cognitive status at discharge: cognitively intact , Behavioral status at discharge: cooperative , Functional status at discharge: independent ambulation , Overall status at discharge: patient is back to baseline Quality Metrics Clinical Quality Measures [ No reported AMI, CVA or VTE this stay] Coding Level of Care Code Acute [facility] note Diagnoses Atrial fibrillation I48.91 CKD (chronic kidney disease) N18.9 COPD (chronic obstructive pulmonary disease) J44.9 Hypothyroidism E03.9 Chest pain R07.9
== END 2021-10-26 17:00 | disposition home or self-care (01) | DRG 310 ==
LOC: ER 18:40 → MEDSURG 19:18
PROVIDERS: Admitting Provider Student in an Organized Health Care Education/Training Program; Emergency Provider Emergency Medicine; PCP Emergency Medicine Emergency Medical Services; Visit Provider Student in an Organized Health Care Education/Training Program
DX: I48.91 Unspecified atrial fibrillation (principal); I12.9 Hypertensive chronic kidney disease with stage 1 through stage 4 chronic kidney disease, or unspecified chronic kidney disease; N18.9 Chronic kidney disease, unspecified; J44.9 Chronic obstructive pulmonary disease, unspecified; E89.0 Postprocedural hypothyroidism; G35 Multiple sclerosis; R60.0 Localized edema; Z85.46 Personal history of malignant neoplasm of prostate; Z85.09 Personal history of malignant neoplasm of other digestive organs; Z90.49 Acquired absence of other specified parts of digestive tract; Z87.891 Personal history of nicotine dependence
CPT/HCPCS: 36415; 80053; 80061; 80306; 81003; 82607; 82746; 83036; 83540; 83550; 83735; 84439; 84443; 84481; 84484; 85025; 85378; 87635; 93005; 93306; 94760; 96374; 99285; J3490; J7030; J7040

== ENCOUNTER → 2022-01-03 13:09 | Outpatient (BNVA) | payer OTHER, SELFPAY | PROVIDERS: PCP Emergency Medicine Emergency Medical Services; Visit Provider Internal Medicine Cardiovascular Disease | DX: I48.0 Paroxysmal atrial fibrillation (principal); I12.9 Hypertensive chronic kidney disease with stage 1 through stage 4 chronic kidney disease, or unspecified chronic kidney disease; N18.9 Chronic kidney disease, unspecified; Z87.891 Personal history of nicotine dependence; E78.5 Hyperlipidemia, unspecified; J44.9 Chronic obstructive pulmonary disease, unspecified | CPT/HCPCS: 93005; 99204 ==

== ENCOUNTER 2022-03-19 12:51 | Outpatient (CLI) | payer OTHER, SELFPAY ==
[2022-03-19 14:33] LABS: Anion Gap 15.9 (5-19); Blood Urea Nitrogen 16 mg/dL (8-23); Calcium 9.6 mg/dL (8.5-10.5); Carbon Dioxide 25 mmol/L (22-29); Chloride 100 mmol/L (98-107); Glucose 124 mg/dL (65-115); Magnesium 1.9 mg/dL (1.7-2.3); Osmolality Calculated 287 mOsm/kg (285-295); Potassium 3.9 mmol/L (3.5-5.1); Sodium 137 mmol/L (136-145)
== END 2022-03-19 12:52 | disposition home or self-care (01) ==
LOC: LAB 12:54
PROVIDERS: PCP Emergency Medicine Emergency Medical Services; Visit Provider Internal Medicine Cardiovascular Disease
DX: E78.5 Hyperlipidemia, unspecified (principal); I10 Essential (primary) hypertension; I48.91 Unspecified atrial fibrillation; R07.9 Chest pain, unspecified
CPT/HCPCS: 36415; 80048; 83735

== ENCOUNTER → 2022-04-27 08:12 | Outpatient (BNVA) | payer OTHER, SELFPAY | PROVIDERS: PCP Emergency Medicine Emergency Medical Services; Visit Provider Nurse Practitioner Family | DX: I48.91 Unspecified atrial fibrillation (principal); Z87.891 Personal history of nicotine dependence; I12.9 Hypertensive chronic kidney disease with stage 1 through stage 4 chronic kidney disease, or unspecified chronic kidney disease; N18.9 Chronic kidney disease, unspecified; Z79.01 Long term (current) use of anticoagulants | CPT/HCPCS: 99214 ==

== ENCOUNTER 2022-05-07 07:37 | Outpatient (CLI) | payer OTHER, SELFPAY ==
--- NOTE | 2022-05-07 07:55 | MR_ITS ---
WS: [email or web address] MRI CERVICAL SPINE NONCONTRAST HISTORY: Neuritis, pain in LEFT shoulder. Radiculopathy. Decreased range of motion. COMPARISON: 10/22/2006 Technique: Multiplanar, multisequence noncontrast imaging of the cervical spine. Interval anterior cervical fusion at C3-4 with interbody spacer. Disc spaces are mildly narrowed throughout the cervical spine. Increase T2 signal in the posterior ce rvical cord at the C2-3 level measures 8 mm. Abnormal signal was also noted on the prior MRI but the overall length has improved. There some very minimal increased T2 signal at the C5-6 level and T1. No cord atrophy. Craniocervical junction, C1 and C2 relationship, odontoid process and soft tissues are normal. C2-C3: Mild osteophytic ridging. Mild facet arthritis. No stenosis. C3-C4: Mild osteophytic ridging. Osteophyte is greatest extending to the LEFT. There is mild central with bilateral moderate foraminal stenosis and mild facet arthritis. C4-C5: Mild osteophytic ridging. Small central disc protrusion with mild encroachment upon the thecal sac. Very mild central with mild bilateral foraminal stenosis and facet arthritis. C5-C6: Mild osteophytic ridging and annular disc bulging. Moderate central and bilateral foraminal st enosis. C6-C7: Mild osteophytic ridging. Mild central and foraminal stenosis. C7-T1: Normal. Paraspinal soft tissue are normal. MR/MR cervical spin wo con* [id number] IMPRESSION: 1. Since the prior examination from 2006 anterior cervical fusion at C3-4 with interbody spacer. Improved disc and osteophyte contact on the ventral cervical cord. 2. Increased T2 signal in the cervical cord at several levels including C2-3, C5-6 and T1. Signal abnormality at C2-3 has decreased in extent now measuring 8 mm. This may be related to myelomalacia. As this is multifocal cervical abnorm ality demyelinating disease should be considered. This was previously reported on the MRI from 10/22/2006. 3. Degenerative cervical disc disease, facet disease and spondylosis at multip le levels. Combination of these factors contributing to stenosis. 4. Mild central with moderate bilateral foraminal stenosis at C3-4. 5. Moderate central and bilateral foraminal stenosis at C5-6. 6. Mild central and bilateral foraminal stenosis at C4-5 and C6-7.
== END 2022-05-07 07:38 | disposition home or self-care (01) ==
LOC: RAD 07:40
PROVIDERS: PCP Emergency Medicine Emergency Medical Services; Visit Provider Psychiatry & Neurology Neurology
DX: M54.12 Radiculopathy, cervical region (principal); M25.512 Pain in left shoulder; Z98.1 Arthrodesis status; M48.02 Spinal stenosis, cervical region
CPT/HCPCS: 72141

== ENCOUNTER → 2022-09-05 13:43 | Outpatient (BNVA) | payer OTHER, SELFPAY | PROVIDERS: PCP Emergency Medicine Emergency Medical Services; Visit Provider Internal Medicine Cardiovascular Disease | DX: I48.0 Paroxysmal atrial fibrillation (principal); I12.9 Hypertensive chronic kidney disease with stage 1 through stage 4 chronic kidney disease, or unspecified chronic kidney disease; N18.9 Chronic kidney disease, unspecified; Z87.891 Personal history of nicotine dependence | CPT/HCPCS: 99214 ==

== ENCOUNTER 2023-02-11 10:59 | Outpatient (CLI) | payer OTHER, SELFPAY ==
--- NOTE | 2023-02-11 11:01 | US_ITS ---
WS: [email or web address] RENAL ULTRASOUND HISTORY: STAGE 3B CHRONIC KIDNEY DZ COMPARISON: None available. TECHNIQUE: 2-D and color Doppler imaging of the kidney submitted. Right kidney: 10.1 cm x 3.4 cm x 4.6 cm. Cortex: 1.2 cm Normal size kidney. Cortical cyst mid kidney 2.1 x 1.5 cm. There is an additional complex cyst in the superior pole measuring 1.8 x 1.9 cm. No hydronephrosis. Left kidney: 12.3 cm x 3.5 cm x 5.2 cm. Cortex: 1.0 cm Normal size kidney. Cortical cyst superior pole measures 1.5 x 1.3 cm. There is a smaller cyst in the mid kidney. Aorta: Normal. Urinary Bladder: Normal distention. IMPRESSION: 1. Complex cyst superior pole RIGHT kidney measures 1.8 x 1.9 cm. Recommend follow-up ultrasound in 6 months. 2. Additional bilateral simple cortical cysts within each kidney. 3. No hydronephrosis.
== END 2023-02-11 11:00 | disposition home or self-care (01) ==
LOC: RAD 10:59
PROVIDERS: PCP Emergency Medicine Emergency Medical Services; Visit Provider Internal Medicine Nephrology
DX: N18.32 Chronic kidney disease, stage 3b (principal)
CPT/HCPCS: 76770

== ENCOUNTER → 2023-03-22 11:01 | Outpatient (BNVA) | payer OTHER, SELFPAY | PROVIDERS: PCP Emergency Medicine Emergency Medical Services; Visit Provider Internal Medicine Cardiovascular Disease | DX: E78.5 Hyperlipidemia, unspecified (principal); I48.91 Unspecified atrial fibrillation; I12.9 Hypertensive chronic kidney disease with stage 1 through stage 4 chronic kidney disease, or unspecified chronic kidney disease; N18.9 Chronic kidney disease, unspecified; J44.9 Chronic obstructive pulmonary disease, unspecified; Z87.891 Personal history of nicotine dependence | CPT/HCPCS: 99213 ==

== ENCOUNTER → 2023-03-29 09:53 | Outpatient (BNVA) | payer OTHER, SELFPAY | PROVIDERS: PCP Emergency Medicine Emergency Medical Services; Referring Provider Emergency Medicine Emergency Medical Services; Visit Provider Surgery | DX: K64.9 Unspecified hemorrhoids (principal) | CPT/HCPCS: 99203; 99213 ==

== ENCOUNTER 2023-05-17 13:27 | Outpatient (CLI) | payer OTHER, SELFPAY ==
--- NOTE | 2023-05-17 13:31 | CTR_ITS ---
PROCEDURE INFORMATION: Exam: CT Abdomen And Pelvis Without Contrast Exam date and time: 05/17/2023 1:47 PM Age: 77 years old Clinical indication: Abnormal findings; Abnormal radiologic finding of the abdomen; Radiologic exam and body structure: US renal; Prior surgery; Surgery date: 6+ months; Surgery type: Polyp removal, prostate; Patient HX: HX of skin, stomach, prostate cancer; Additional info: Complex renal cyst TECHNIQUE: Imaging protocol: Computed tomography of the abdomen and pelvis without contrast. Radiation optimization: All CT scans at this facility use at least one of these dose optimization techniques: automated exposure control; mA and/or kV adjustment per patient size (includes targeted exams where dose is matched to clinical indication); or iterative reconstruction. COMPARISON: CT abdomen wo/w con [id number] 10/11/2017 9:29 AM RADIATION DOSE METRICS: Total DLP (mGy-cm): 656.13 FINDINGS: Lungs: Lung bases are clear. No pleural effusion. Liver: Normal. No mass. Gallbladder and bile ducts: Normal. No calcified stones. No ductal dilation. Pancreas: Normal. No ductal dilation. Spleen: Normal. No splenomegaly. Adrenal glands: Normal. No mass. Kidneys and ureters: There is a 2.6 cm diameter complex cystic nodule projecting posteriorly from the midpole region of the left kidney. There is a 2.6 cm hemorrhagic cyst involving the midpole region of the right kidney. Stomach and bowel: Unremarkable. No obstruction. No mucosal thickening. Appendix: No evidence of appendicitis. Intraperitoneal space: Unremarkable. No free air. No significant fluid collection. Vasculature: Unremarkable. No abdominal aortic aneurysm. Lymph nodes: Unremarkable. No enlarged lymph nodes. Urinary bladder: Unremarkable as visualized. Reproductive: Multiple tiny metallic pellets are noted within the prostate gland. Bones/joints: Unremarkable. No acute fracture. Soft tissues: Unremarkable. CT/CT abdomen pelvis wo con [id number] IMPRESSION: 1. Complex cystic nodule involving the left kidney. This nodule appears to have developed over the past few months. Further workup with MRI or contrasted CT is recommended. 2. Hemorrhagic cyst of the right kidney. COMMENTS: Consistent with the [employer]'s Incidental Findings Committee white paper (J Am Olivia Radiol 2018): Any incidental renal lesion less than 1 cm or classified as too small to characterize, or any incidental cystic renal lesion characterized as simple-appearing, is likely benign. No follow-up imaging is recommended for these lesions per consensus recommendations based on imaging criteria.
== END 2023-05-17 13:28 | disposition home or self-care (01) ==
LOC: RAD 13:28
PROVIDERS: PCP Emergency Medicine Emergency Medical Services; Visit Provider Nurse Practitioner Family
DX: N28.1 Cyst of kidney, acquired (principal); N28.89 Other specified disorders of kidney and ureter; Z85.828 Personal history of other malignant neoplasm of skin; Z85.028 Personal history of other malignant neoplasm of stomach; Z85.46 Personal history of malignant neoplasm of prostate
CPT/HCPCS: 74176

== ENCOUNTER 2023-06-20 15:05 | Outpatient (CLI) | payer OTHER, SELFPAY | END 2023-06-20 15:06 | disposition home or self-care (01) | LOC: LAB 15:11 | PROVIDERS: PCP Emergency Medicine Emergency Medical Services; Visit Provider Nurse Practitioner Family | DX: Z85.46 Personal history of malignant neoplasm of prostate (principal) | CPT/HCPCS: 36415; 84153 ==

== ENCOUNTER → 2023-07-11 08:39 | Outpatient (BNVA) | payer OTHER, SELFPAY | PROVIDERS: PCP Emergency Medicine Emergency Medical Services; Visit Provider Psychiatry & Neurology Neurology | DX: G35 Multiple sclerosis (principal); I12.9 Hypertensive chronic kidney disease with stage 1 through stage 4 chronic kidney disease, or unspecified chronic kidney disease; N18.9 Chronic kidney disease, unspecified; R29.90 Unspecified symptoms and signs involving the nervous system; Z87.891 Personal history of nicotine dependence; I48.91 Unspecified atrial fibrillation | CPT/HCPCS: 36415; 82565; 99203 ==

== ENCOUNTER 2023-08-02 10:48 | Outpatient (CLI) | payer OTHER, SELFPAY ==
--- NOTE | 2023-08-02 10:50 | MR_ITS ---
WS: [email or web address] MRI ABDOMEN WITH AND WITHOUT CONTRAST. COMPARISON: CT abdomen, noncontrast 05/17/2023, renal ultrasound 02/11/2023, CT abdomen 10/11/2017 Multiplanar, multisequence imaging is performed with and without contrast. MultiHance 20 mL IV. History: Complex renal cyst seen on recent ultrasound. Evaluate LEFT kidney for possible neoplasm. RIGHT kidney: Normal size. Mild perinephric stranding. T1 hyperintense cortical cyst mid kidney measu res 2.0 x 2.1 cm. There is no enhancement on the postcontrast imaging. There is an additional simple cyst lower pole cortex measuring 1.4 x 1.0 cm. No hydronephrosis or solid mass. LEFT kidney: Normal size kidney. Recently described possible hemorrhagic cyst or early neoplasm is id entified. This is a bilobed lobe cyst extending from the posterior mid kidney measuring 2.5 x 1.5 cm. Cyst is of slightly increased signal on the precontrast sequence. There is no enhancement. There is an additional cortical mass measuring 1.0 x 1.2 cm just slightly inferior to this larger cyst. There is no enhancement and this is consistent with a small hemorrhagic cyst or cyst with increased protein content. There are a few additional very tiny cortical signal hyperintensities. None of these areas enhance. Visualized liver and spleen are negative. Very mild pancreatic atrophy. No pancreatic duct dilatation or mass. No adenopathy and no ascites. No adrenal mass. MR/MR abdomen wo/w con* [id number] IMPRESSION: 1. LEFT renal mass described by recent ultrasound and CT corresponds to a hemo rrhagic cyst. There is no enhancement. This is a proteinaceous cyst measuring 2 .5 x 1.5 cm. 2. There are additional cysts and hemorrhagic cysts within each kidney. No ko id enhancing renal mass. 3. No ascites or adenopathy.
[2023-08-02] MEDS: gadobenate dimeglumine 20 mL vial IV (11:34)
== END 2023-08-02 10:49 | disposition home or self-care (01) ==
LOC: RAD 10:48
PROVIDERS: PCP Emergency Medicine Emergency Medical Services; Visit Provider Urology
DX: Q61.02 Congenital multiple renal cysts (principal)
CPT/HCPCS: 74183; A9577

== ENCOUNTER 2023-08-09 10:41 | Outpatient (CLI) | payer OTHER, SELFPAY ==
--- NOTE | 2023-08-09 11:00 | MR_ITS ---
WS: [email or web address] MRI LUMBAR SPINE NONCONTRAST TECHNIQUE: Sagittal T1, T2 and STIR imaging. Axial T1 and T2 imaging. CLINICAL INFORMATION: G35 - Multiple sclerosis COMPARISON: None. FINDINGS: Mild lumbar curve. No acute compression. Mild disc bulging throughout the lumbar spine. L1-L2: Mild disc bulging. Mild facet arthropathy. Spinal canal and foramen are patent. L2-L3: Mild disc bulging with slight effacement of the ventral thecal sac. Narrowing of the subarticu lar recess bilaterally. Mild facet arthropathy. Foramen are patent. L3-L4: Mild disc bulging with a small annular fissure. Moderate central canal stenosis with impingeme nt traversing L4 nerve roots RIGHT greater than LEFT. Moderate facet arthropathy. Mild RIGHT and no s ignificant LEFT foraminal narrowing. L4-L5: Mild disc bulging with moderate to severe central canal stenosis. Impingement subarticular rec ess bilaterally. Moderate facet arthropathy ligamentum flavum hypertrophy. Mild bilateral foraminal n arrowing. L5-S1: Mild disc bulging with a tiny annular fissure and shallow central protrusion. Slight impingeme nt traversing S1 nerve roots bilaterally. Moderate facet arthropathy. Mild central canal stenosis. Mo derate RIGHT and mild LEFT foraminal narrowing. Visualized pelvic bony structures: Normal. Paravertebral soft tissues: Normal. Bilateral renal cortical atrophy. Partially visualized LEFT renal cyst measuring 2.5 x 1.3 cm MR/MR lumbar spine wo con* [id number] IMPRESSION: 1. Mild lumbar curve. No acute compression. 2. Moderate central canal stenosis L3-4 and moderate to severe L4-5 due to dis c bulging with facet arthropathy ligamentum flavum hypertrophy. 3. Impingement RIGHT L3-4 and bilateral L4-5 subarticular recess. 4. Shallow central protrusion L5-S1 slightly contacts the traversing S1 nerve roots. 5. Moderate RIGHT L5-S1 foraminal narrowing. 6. Moderate facet arthropathy L3-L5.
[2023-08-09] MEDS: gadobenate dimeglumine 20 mL vial IV (11:53)
== END 2023-08-09 10:42 | disposition home or self-care (01) ==
LOC: RAD 10:42
PROVIDERS: PCP Emergency Medicine Emergency Medical Services; Visit Provider Psychiatry & Neurology Neurology
DX: G35 Multiple sclerosis (principal); M51.36 Other intervertebral disc degeneration, lumbar region; M48.061 Spinal stenosis, lumbar region without neurogenic claudication; M47.816 Spondylosis without myelopathy or radiculopathy, lumbar region; Q05.9 Spina bifida, unspecified; N28.1 Cyst of kidney, acquired; M51.37 Other intervertebral disc degeneration, lumbosacral region; M48.07 Spinal stenosis, lumbosacral region; M47.817 Spondylosis without myelopathy or radiculopathy, lumbosacral region
CPT/HCPCS: 72148; A9577

== ENCOUNTER 2023-08-16 10:38 | Outpatient (CLI) | payer OTHER, SELFPAY ==
--- NOTE | 2023-08-16 11:00 | MR_ITS ---
WS: [email or web address] MRI BRAIN WITH AND WITHOUT CONTRAST HISTORY: G35 - Multiple sclerosis COMPARISON: None available. TECHNIQUE: Multiplanar imaging performed through the brain with MultiHance 20 ml's IV. Normal diffusion imaging. Numerous pericallosal and callosal septal areas of increased signal on the T2 and FLAIR sequences in a distribution consistent with demyelination. Slightly greater distribution on the RIGHT particularly around the occipital portion of the corpus callosum. There are additional subcortical T2 and FLAIR signal hyperintensities which are more likely small vessel ischemic disease. No prior infarct. No susceptibility artifacts or prior lacunar infarcts. Ventricles and extra-axial spaces are normal. Clivus and pituitary gland are normal. Posterior fossa is negative. Upper cervical spine was better evaluated on a recent MRI from 08/09/2023. No masses or abnormal enhancement. The demyelinating plaques do not enhance. Dural venous sinuses are normal. Paranasal sinuses: Well aerated with no significant disease. Mastoid air cells: Normal. Calvarium and scalp: Normal. MR/MR head wo/w con [id number] IMPRESSION: 1. Moderate pericallosal nonenhancing demyelinating plaques, slightly greater around the RIGHT corpus callosum. No active demyelination. 2. Mild small vessel ischemic disease. 3. No enhancing mass.
[2023-08-16] MEDS: gadobenate dimeglumine 20 mL vial IV (11:46)
== END 2023-08-16 10:39 | disposition home or self-care (01) ==
PROVIDERS: PCP Emergency Medicine Emergency Medical Services; Visit Provider Psychiatry & Neurology Neurology
DX: G35 Multiple sclerosis (principal)
CPT/HCPCS: 70553; A9577

== ENCOUNTER 2023-09-09 16:56 | Emergency (ER) | payer OTHER, SELFPAY ==
[2023-09-09 16:58] VITALS: BP 186/77; PULSE 73; RESP 16; TEMP 36.4; O2SAT 97
--- NOTE | 2023-09-09 17:16 | XRR_ITS ---
PROCEDURE INFORMATION: Exam: XR Lumbosacral Spine Exam date and time: 09/09/2023 5:44 PM Age: 77 years old Clinical indication: Low back pain TECHNIQUE: Imaging protocol: Radiologic exam of the lumbosacral spine. Views: 2 or 3 views. COMPARISON: MR lumbar spine wo con* [id number] 08/09/2023 11:25 AM FINDINGS: Bones/joints: There is moderate disc space narrowing and osteophyte formation at L4/5 and L5/S1 which is unchanged. No acute fracture. Soft tissues: Unremarkable. Organs: There are metallic seeds in the prostate. XR/XR lumbar spine 2-3V* [id number] IMPRESSION: There are no acute concerning abnormalities.
--- NOTE | 2023-09-09 17:16 | XRR_ITS ---
PROCEDURE INFORMATION: Exam: XR Left Hip Exam date and time: 09/09/2023 5:42 PM Age: 77 years old Clinical indication: Hip pain; Left hip TECHNIQUE: Imaging protocol: Radiologic exam of the left hip. Views: 2 or 3 views hip with pelvis when performed. COMPARISON: CT abdomen pelvis wo con [id number] 05/17/2023 1:47 PM FINDINGS: Bones/joints: Unremarkable. No acute fracture. No significant joint space narrowing. Soft tissues: There are metallic seeds in the prostate. XR/XR hip LT 2-3V wo/w pel* [id number] IMPRESSION: No acute findings.
--- NOTE | 2023-09-09 17:18 | ED_ITS ---
HPI - Extremity Problem General: Chief complaint: Extremity Problem,Nontraumatic Stated complaint: has MS, left side hurting bad Time Seen by Provider: 09/09/23 17:09 Source: patient Mode of arrival: wheelchair Limitations: no limitations History of Present Illness: Patient is a 77-year-old male with past medical history of multiple sclerosis who presents emergency department complaining of low back pain onset 1 week. Patient notes radiation of the pain down his left leg, denies history of sciatica or arthritis. He states he recently underwent MRI of his entire spine and was found to have multiple degenerative findings on lumbar spine, has follow-up appointment with Dr. Vargas tomorrow. He has been taking Holden and muscle relaxers at home and states the pain has been unbearable. Has been c onstant since onset and is worsened by any movement. There is no injury or trauma reported, stating that the pain started while simply getting up from a seated position. He has never had this pain before. He notes that it has been increasingly difficult to urinate, however denies any incontinence of bowel or bladder. Additionally he notes that his left lower extremity seems to be more weak and numb when compared to his right, and this has been increasing in severity over the past week. No other symptoms or concerning historical factors to note at this time. MD Complaint: extremity pain and other (Back pain) Onset (ago): week(s) Pain Consistency: constant Location: left Radiation: distal Relieving factors: nothing Exacerbating factors: range of motion Associated symptoms: Deny chest pain, fever(s) or rash Review of Systems General: Reports: 10 or more systems reviewed and unremarkable except in HPI and below Const: Denies: fever(s) or chills Card: Denies: chest pain Resp: Denies: dyspnea or productive cough GI: Denies: abdominal pain, nausea, vomiting or diarrhea : Reports: difficulty urinating; Denies: flank pain Musc: Reports: back pain, extremity pain and joint pain; Denies: neck pain, extremity swelling, joint swelling, joint redness, joint warmth, limited range of motion or muscle weakness Skin/Breast: Denies: rash Neuro: Reports: numbness in extremities and weakness in extremities; Denies: headache(s) COUNTS INCLUDE 234 BEDS AT THE [facility] ED PFSH: Medical History CKD (chronic kidney disease) Pneumonia due to 2019-nCoV Hypothyroidism Hypertension Hyperlipidemia Multiple sclerosis Depression H/O prostate cancer Gastrointestinal stromal tumor (GIST) of stomach COPD (chronic obstructive pulmonary disease) Surgical History History of thyroidectomy H/O neck surgery History of parathyroid surgery H/O resection of stomach Laparoscopic partial resection for gist tumor the patient H/O circumcision H/O esophagogastroduodenoscopy 04/2019 H/O colonoscopy 04/2019: Repeat in 5 years Family History Sister Bleeding disorder Other Cancer Diabetes Heart disease Social History Smoking and tobacco/nicotine status: former use of tobacco/nicotine Alcohol intake: never Substance/Drug Use: never Household members: spouse Marital status: Current occupational status: retired Physical Exam Const: COMMON NORMALS: patient oriented x3, no limitations, healthy appearing, alert and well nourished GENERAL APPEARANCE: cooperative and in distress (From the pain, gripping his left leg) HENMT: COMMON NORMALS: normocephalic and atraumatic HEAD & SCALP: normocephalic and atraumatic Eye: COMMON NORMALS: Equal, round and reactive pupils present PUPIL: Yes Equal, round and reactive pupils present Neck/C-Spine: COMMON NORMALS: full ROM, supple and no meningeal signs Resp: COMMON NORMALS: normal respiratory effort, No use of accessory muscles and clear to auscultation bilaterally AUSCULTATION: clear to auscultation b ilaterally Cardio: COMMON NORMALS: regular rate and regular rhythm RATE: regular rate RHYTHM: regular rhythm Back/Pelvis: COMMON NORMALS: thoracic and lumbar spine normal to inspection THORACIC SPINE/UPPER BACK: Yes normal to inspection LUMBAR SPINE/LOWER BACK: Yes normal to inspection, Yes ROM limited, Yes pain with ROM, Yes lumbar spinal tenderness and Yes paraspinal muscle tenderness Lumbar paraspinal muscle tenderness: left OTHER: Cannot assess straight leg raising due to patient's seated position in wheelchair and noncompliance with ambulation Extremity: COMMON NORMALS: normal to inspection, capillary refill normal, no joint enlargement and no clubbing, cyanosis or edema NARRATIVE EXTREMITY EXAM: There is pain with range of motion noted with flexion and extension of the left hip, range of motion of knee and ankle are normal. Neuro: COMMON NORMALS: patient oriented x3, moves all extremities, no focal motor deficits and deep tendon reflexes 2+ bilaterally SENSORIUM/ORIENTATION: Yes alert MENINGEAL SIGNS: Yes no meningeal signs OTHER: Sensation is decreased at distal left lower extremity when compared to the right. Strength seem to be equal bilaterally with equal pulses Skin: COMMON NORMALS: no rashes or lesions noted GENERAL SKIN EXAM: no rashes or lesions noted Course Vital Signs: Vital signs: Vital Signs Temperature 97.5 F L 09/09/23 19:06 Pulse Rate 71 09/09/23 19:06 Respiratory Rate 18 09/09/23 19:06 Blood Pressure 158/82 09/09/23 19:06 Pulse Oximetry 98 09/09/23 19:06 Oxygen Delivery Me thod Room Air 09/09/23 16:58 MDM - Extremity (Nontraumatic) Medical Decision Making Patient presented with left lower back and hip pain that has been worsening over the past week. Does have history of MS and recently had an MRI that showed multiple spinal pathologies including spinal stenosis, bulging disks, and facet arthropathy. He is to see Dr. Vargas tomorrow but states that the pain was too severe today. There is no new injury to report, and on examination did not demonstrate any focal motor deficits. He did endorse some sensory deficits on the left side. Pain distribution correlated with the sciatica, states he was never diagnosed with this. He has been taking Holden at home to no relief along with muscle relaxers. Here he is given shot of Norflex, shot of Decadron, and Dilaudid. His x-rays did not demonstrate any acute findings. Upon recheck he is still complaining of severe pain. I spoke with Dr. Khalil and we agreed to try oxycodone 10 and sent home with prescription of p.o. steroids. This is to get him to his appointment tomorrow with Dr. Glasgow will further pain management will be discussed most likely. Reasons to return were discussed, he did not endorse any red flag back symptoms such as incontinence or saddle anesthesia. Lab Data Radiology Impressions Hip/Pelvis X-Ray 09/09/23 17:16 IMPRESSION: No acute findings. Lumbar Spine X-Ray 09/09/23 17:16 IMPRESSION: There are no acute concerning abnormalities. All radiology interpretation(s) finalized by discharge Discharge Plan Discharge Patient Disposition: Home Clinical Impression: Low back pain Condition: Stable Prescriptions: New prednisone 20 mg tablet 60 mg PO ONCE 5 Days Qty: 15 0RF No Action bupropion HCl 300 mg tablet extended release 24 hr 300 mg PO DAILY lisinopril 40 mg tablet 40 mg PO DAILY levothyroxine 88 mcg capsule 88 mcg PO DAILY modafinil 200 mg tablet 200 mg PO DAILY hydroxyzine HCl 50 mg tablet 50 mg PO BEDTIME edoxaban 30 mg tablet 30 mg PO DAILY cyclobenzaprine 10 mg tablet 10 mg PO TID PRN clonidine HCl 0.1 mg tablet 0.3 mg PO DIRECTED Qty: 270 1RF Rx Instructions: 0.2mg (2 tabs) in AM and 0.1mg (1 tab) in PM diltiazem HCl 120 mg capsule,extended release 24 hr 120 mg PO DAILY Qty: 90 3RF hydrochlorothiazide 25 mg tablet 25 mg PO DAILY Qty: 90 3RF pantoprazole 40 mg tablet,delayed release (DR/EC) 40 mg PO DAILY lovastatin 40 mg Tablet 40 mg PO DAILY melatonin 5 mg Tablet 5 mg PO BEDTIME Qty: 0 ropinirole 2 mg Tablet 2 mg PO BEDTIME mirtazapine 45 mg Tablet 45 mg PO BEDTIME amantadine HCl 100 mg Tablet 100 mg PO DAILY Vitamin B-12 250 mcg Tablet 250 mcg PO DAILY tamsulosin 0.4 mg Capsule 0.8 mg PO BEDTIME Vitamin D3 25 mcg (1,000 unit) Tablet 25 mcg PO DAILY artificial saliva (cmce-lytes) [place] With Pump 3 spray MUCOUS MEMBRANE Q4H PRN (Reason: Dry Mouth) Rx Instructions: administer while awake doxylamine succinate 25 mg tablet 25 mg PO BEDTIME PRN (Reason: Sleep) Discharge Orders: Discharge ED (Routine); Ordered 09/09/23 Ordered By: Dayne Munguia Referrals: Marcos Gibson DO [Primary Care Provider] - Discharge Diet: Usual diet Discharge Activity: Increase activity as tolerated Patient Instructions: Opioid Safety, Pain Management Activity Restrictions/Additional Instructions: Follow-up with Ortho spine tomorrow. Take steroids as prescribed. Continue pain medications and muscle relaxers at home. Gentle range of motion exercises as tolerated. Ice/heat. Return with any new or worsening. Coding Level of Care Code ED Merchandise Flow Manager for Bari Saez
[2023-09-09] MEDS: dexamethasone 10 mg/mL INJ IM (17:24)
[2023-09-09] MEDS: orphenadrine 30 mg/mL Inj 2 mL 60 MG IM (17:24)
[2023-09-09 19:00] VITALS: RESP 16
[2023-09-09] MEDS: oxyCODONE-APAP 10-325 mg Tablet 1 TAB PO (19:00)
[2023-09-09] MEDS: predniSONE 20 mg Tablet 60 MG PO (19:01)
[2023-09-09 19:06] VITALS: BP 158/82; PULSE 71; RESP 18; TEMP 36.4; O2SAT 98
== END 2023-09-09 19:04 | disposition home or self-care (01) ==
PROVIDERS: Emergency Provider Physician Assistant; PCP Emergency Medicine Emergency Medical Services
DX: M54.50 Low back pain, unspecified (principal); I12.9 Hypertensive chronic kidney disease with stage 1 through stage 4 chronic kidney disease, or unspecified chronic kidney disease; N18.9 Chronic kidney disease, unspecified; E78.5 Hyperlipidemia, unspecified; G35 Multiple sclerosis; Z85.46 Personal history of malignant neoplasm of prostate; J44.9 Chronic obstructive pulmonary disease, unspecified; Z87.891 Personal history of nicotine dependence
CPT/HCPCS: 72100; 73502; 96372; 96374; 96375; 99284; J1100; J2360; J7512

== ENCOUNTER → 2023-09-10 10:44 | Outpatient (BNVA) | payer OTHER, SELFPAY | PROVIDERS: PCP Emergency Medicine Emergency Medical Services; Visit Provider Orthopaedic Surgery | DX: M48.062 Spinal stenosis, lumbar region with neurogenic claudication (principal); M54.9 Dorsalgia, unspecified | CPT/HCPCS: 72110; 99204 ==

== ENCOUNTER → 2023-09-20 10:26 | Outpatient (BNVA) | payer OTHER, SELFPAY | PROVIDERS: PCP Emergency Medicine Emergency Medical Services; Visit Provider Internal Medicine Cardiovascular Disease | DX: E78.5 Hyperlipidemia, unspecified (principal); I12.9 Hypertensive chronic kidney disease with stage 1 through stage 4 chronic kidney disease, or unspecified chronic kidney disease; N18.9 Chronic kidney disease, unspecified; I48.91 Unspecified atrial fibrillation; R13.10 Dysphagia, unspecified; G35 Multiple sclerosis; J44.9 Chronic obstructive pulmonary disease, unspecified | CPT/HCPCS: 99213 ==

== ENCOUNTER → 2023-09-26 13:46 | Outpatient (BNVA) | payer OTHER, SELFPAY | PROVIDERS: PCP Emergency Medicine Emergency Medical Services; Visit Provider Orthopaedic Surgery | DX: M54.9 Dorsalgia, unspecified (principal); M47.896 Other spondylosis, lumbar region | CPT/HCPCS: 72100; 80053; 81003; 85025; 99214 ==

== ENCOUNTER → 2023-10-25 10:46 | Outpatient (BNVA) | payer OTHER, SELFPAY | PROVIDERS: PCP Emergency Medicine Emergency Medical Services; Visit Provider Family Medicine | DX: Z01.818 Encounter for other preprocedural examination (principal); I44.0 Atrioventricular block, first degree | CPT/HCPCS: 80053; 81003; 85025; 93005 ==

== ENCOUNTER 2023-10-31 13:10 | Outpatient (CLI) | payer OTHER, SELFPAY ==
[2023-10-31 13:39] LABS: Basophils # 0.1 10^3/uL (0.0-0.1); Basophils % 1.4 %; Eosinophils # 0.4 10^3/uL (0.0-0.8); Eosinophils % 4.8 %; Hematocrit 48.2 % (37-53); Lymphocytes # 1.8 10^3/uL (0.8-4.8); Lymphocytes % 19.6 %; Mean Corpuscular HGB Conc 32.4 g/dL (30-55); Mean Corpuscular Hemoglobin 28.9 pg (27-33); Mean Corpuscular Volume 89.3 fl (82-101); Mean Platelet Volume 11.9 fL (7.4-10.4); Monocytes # 0.7 10^3/uL (0.2-0.9); Monocytes % 7.2 %; Neutrophils # 6.07 10^3/uL (1.8-7.7); Neutrophils % 66.6 %; Nucleated Red Blood Cells % 0 %; Platelet Count 185 10^3/cmm (157-399); White Blood Count 9.13 10^3/uL (3.29-11.43)
[2023-10-31 14:00] LABS: Calcium 9.8 mg/dL (8.5-10.5)
[2023-10-31 14:01] LABS: Albumin Level 4.3 g/dL (3.5-5.2); Anion Gap 15.7 (5-19); Blood Urea Nitrogen 23 mg/dL (8-23); Calcium 9.7 mg/dL (8.5-10.5); Carbon Dioxide 26 mmol/L (22-29); Chloride 102 mmol/L (98-107); Glucose 128 mg/dL (65-115); Phosphorus 2.8 mg/dL (2.5-4.5); Potassium 3.7 mmol/L (3.5-5.1); Sodium 140 mmol/L (136-145)
[2023-10-31 14:01] LABS: Creatinine Urine, Random 73 mg/dL (39-259); Microalbum Creatinine Ratio Ur 14 mg/dL (0-20); Microalbumin Random Urine 1 ug/dL (0-20)
[2023-10-31 14:07] LABS: Parathyroid Hormone 45.9 pg/mL (15-65)
[2023-10-31 14:17] LABS: 25 Hydroxy Vitamin D 38 ng/mL (30-100)
== END 2023-10-31 13:11 | disposition home or self-care (01) ==
LOC: LAB 13:11
PROVIDERS: PCP Emergency Medicine Emergency Medical Services; Visit Provider Registered Nurse
DX: N18.32 Chronic kidney disease, stage 3b (principal); N25.81 Secondary hyperparathyroidism of renal origin
CPT/HCPCS: 80069; 82044; 82306; 82310; 83970; 85025

== ENCOUNTER → 2023-11-01 06:27 | Day surgery (SDC) | payer OTHER, SELFPAY ==
[2023-11-01] VITALS (10 sets, daily range): BP systolic 107–158; BP diastolic 48–65; PULSE 58–81; RESP 18; TEMP 36.1–36.6; O2SAT 94–97; BMI 29.1
--- NOTE | 2023-11-01 06:39 | W.PM.OPSUD ---
Surgery/Procedure H&P Update DATE OF PROCEDURE: November 01, 2023 DATE H&P PERFORMED: 10/25/23 H&P UPDATE INFORMATION: I have reviewed H&P completed within last 30 days, I have examined patient prior to procedure and No changes to prior documentation PLANNED PROCEDURE: Operation Date: 11/01/23 08:00 Proposed Procedures p Lumbar Spine Decompression Lumbar Decompression(Not Applicable) - Jake Vargas DO
[2023-11-01] MEDS: famotidine 20 mg/2 mL INJ IVP (07:21)
[2023-11-01] MEDS: sodium chloride 0.9% 1,000 ML 30 ML IV (07:45)
--- NOTE | 2023-11-01 07:52 | ANES.PREANE2 ---
Pre-Anesthetic Assessment Height/Weight: Height 1.8 m Weight 94.801 kg Temp Pulse Resp BP Pulse Ox O2 Del Method 97.6 F 58 L 18 140/61 95 Room Air 11/01/23 06:45 11/01/23 06:45 11/01/23 06:45 11/01/23 06:45 11/01/23 06:45 11/01/23 07:06 Preop Diagnosis: Lumbar stenosis with neurogenic claudication Operation Date: 11/01/23 08:00 Proposed Procedures p Lumbar Spine Decompression Lumbar Decompression(Not Applicable) - Jake Vargas, DO Was Beta Rajendra taken within 24 hours: N/A Last intake: Intake Last Liquid Date 10/31/23 Last Liquid Time 18:30 Last Solid Date 10/31/23 Last Solid Time 18:30 Social No alcohol and No tobacco Exam alert, oriented x 3, clear to auscultation bilaterally and regular rate & rhythm Airway Submandibular: within normal limits Cervical ROM: Other (limited CROM) Mallampati: Class III Dentition: chipped Pulmonary Exertional Dyspnea and Shortness of Breath CV/HEM Atrial Fibrillation and Hypertension Chronic Renal Insufficiency BPH GI Gastroesophageal Reflux Disease [facility] [place] Osteoarthritis/DJD Neuropsych MS Anesthetic Plan ASA status: 3 Anesthesia: General Medications/Allergies Home Medications Medication Instructions Recorded Confirmed Last Taken Type bupropion HCl 300 mg 24 hr tablet, 300 mg PO DAILY 04/17/19 10/31/23 11/01/23 06:00 History extended release hydroxyzine HCl 50 mg tablet 50 mg PO BEDTIME 04/17/19 10/31/23 10/31/23 History levothyroxine 88 mcg capsule 88 mcg PO DAILY 04/17/19 10/31/23 11/01/23 06:00 History lisinopril 40 mg tablet 40 mg PO DAILY 04/17/19 10/31/23 10/31/23 History modafinil 200 mg tablet 200 mg PO DAILY 04/17/19 10/31/23 10/24/23 History pantoprazole 40 mg tablet,delayed 40 mg PO DAILY 04/17/19 10/31/23 11/01/23 06:00 History release lovastatin 40 mg tablet 40 mg PO DAILY 03/11/20 10/31/23 11/01/23 06:00 History amantadine HCl 100 mg tablet 100 mg PO DAILY 0810/31/23 11/01/23 06:00 History artificial 3 spray mucous membrane Q4H PRN 10/25/21 11/01/23 2 Months Ago History saliva(carboxymethylcellulose-electrolytes) Dry Mouth ~09/01/23 spray pump cholecalciferol (vitamin D3) 25 25 mcg PO DAILY 10/25/21 10/31/23 11/01/23 06:00 History mcg (1,000 unit) tablet (Vitamin D3) cyanocobalamin (vitamin B-12) 250 250 mcg PO DAILY 10/25/21 10/31/23 11/01/23 06:00 History mcg tablet (Vitamin B-12) mirtazapine 45 mg tablet 45 mg PO BEDTIME 10/25/21 10/31/23 10/31/23 History ropinirole 2 mg tablet 2 mg PO BEDTIME 10/25/21 10/31/23 10/31/23 History tamsulosin 0.4 mg capsule 0.8 mg PO BEDTIME 10/25/21 10/31/23 10/31/23 History cyclobenzaprine 10 mg tablet 10 mg PO TID PRN Muscle Spasm 01/03/22 11/01/23 10/31/23 History diltiazem HCl 120 mg capsule,24 120 mg PO DAILY #90 caps 01/29/22 10/31/23 11/01/23 06:00 Rx hr,extended release hydrochlorothiazide 25 mg tablet 25 mg PO DAILY #90 tabs 03/21/22 10/31/23 11/01/23 06:00 Rx clonidine HCl 0.1 mg tablet 0.3 mg (3 x 0.1 mg) PO DIRECTED 04/27/22 10/31/23 11/01/23 06:00 Rx #270 tabs edoxaban 30 mg tablet 30 mg PO DAILY 03/22/23 10/31/23 10/26/23 History melatonin 5 mg tablet 10 mg PO BEDTIME #0 tabs 09/20/23 10/31/23 10/31/23 History tramadol 50 mg tablet 50 mg PO TID PRN pain #30 tabs 10/14/23 10/31/23 10/28/23 Rx gabapentin 300 mg capsule 300 mg PO BID 10/31/23 10/31/23 11/01/23 06:00 History Allergies Allergy/AdvReac Type Severity Reaction Status Date / Time No Known Allergies Allergy Verified 10/31/23 14:11 [facility] [place] Anesthesia Medical History (Updated 10/25/23 @ 11:07 by Belén Dunlap MD) CKD (chronic kidney disease) Pneumonia due to 2019-nCoV Hypothyroidism Hypertension Hyperlipidemia Multiple sclerosis Depression H/O prostate cancer Gastrointestinal stromal tumor (GIST) of stomach Surgical History History of thyroidectomy H/O neck surgery History of parathyroid surgery H/O resection of stomach Laparoscopic partial resection for gist tumor the patient H/O circumcision H/O esophagogastroduodenoscopy 04/2019 H/O colonoscopy 04/2019: Repeat in 5 years Family History Sister Bleeding disorder Other Cancer Diabetes Heart disease Social History Smoking and tobacco/nicotine status: never used tobacco/nicotine Alcohol intake: never Substance/Drug Use: never Household members: spouse Marital status: Current occupational status: retired Data Anesthesia Cardiac Studies: Echocardiogram 10/25/21
[2023-11-01] MEDS: ceFAZolin 2,000 mg SDV 2000 MG IVP (08:36)
[2023-11-01] MEDS: lidocaine-epi 1% 20 mL INJ 10 ML INJECTION (08:47)
--- NOTE | 2023-11-01 10:04 | XR_ITS ---
WS: [id number] C-ARM RADIOGRAPHS LUMBAR SPINE; 4 IMAGES HISTORY: or pic, decompression COMPARISON: None available. Intraoperative imaging during spinal decompression. There is an image indicating the L5 vertebral bod y level. XR/XR lumbar spine 1V [id number] IMPRESSION: Intraoperative imaging during spinal decompression.
--- NOTE | 2023-11-01 10:04 | ANE.PACU2 ---
Inpatient post-anesthesia follow up: Airway intact: Yes Vital signs: Temperature 97.6 F Pulse Rate 58 Respiratory Rate 18 Blood Pressure 140/61 Pulse Oximetry 95 Oxygen Delivery Me thod Room Air Oxygen Flow Rate Fraction of Inspir ed Oxygen Hydration adequate: Yes Nausea and vomiting: No Pain level: controlled Mental status: Baseline
--- NOTE | 2023-11-01 10:28 | P.OP_ITS ---
Operative Report Date of procedure: November 01, 2023 Pre-op diagnosis: Lumbar stenosis with neurogenic claudication Post-op diagnosis: same Procedure done: 1. L3-4 laminectomy with partial facetectomy 2. L4-5 laminectomy with partial facetectomy 3. L5-S1 laminectomy partial facetectomy Surgeon: Jake Vargas DO Estimated blood loss (mL): 20 Procedure: 1. L3-4 laminectomy with partial facetectomy 2. L4-5 laminectomy with partial facetectomy 3. L5-S1 laminectomy partial facetectomy Patient is brought to the operative suite. After undergoing anesthesia they are placed in the prone position. All areas of impingement are well padded. Patient is then prepped and draped in the normal sterile fashion. A skin incision is made over the L3-4 level. This is confirmed under c-arm guidance. A series of dilators are passed and the tubular retractor is docked on the L3 lamina. A bovie is used to clear the soft tissue off the lamina and the L 3/4 facet joint. A high speed sanjuana is then used to perform the laminectomy and take down the medial aspect of the L 3/4 facet joint. A kerrison rongeure was then used to take down the remaining lamina and smooth the edge of the laminectomy up to the point where the ligamentum flavum attaches. Attention was then brought to the medial aspect of the facet joint. The remaining medial aspect of the superior and inferior aspect of the facet joint were taken down with the kerrison from the pedicle of L3 to L 4. The facet joint had significant hypertrophy. Attention was then brought to the Ligamentum Flavum. The ligament was taken down from the lamina of L3 to L4 and out medially to the remaining facet joint. The ligament was thick. The dura was then exposed. The dura was in good repair. The L3 nerve was then traced with a curette out the L3/4 foramen and found to be adequately decompressed. The L4 nerve was traced with a curette around the L4 pedicle. The lateral recess was opened with a kerrison helping to further decompress the L4 nerve. Wound is then irrigated copiously with saline and surgiflo is used to stop any bleeding. The tubular retractor is removed and the A skin incision is made over the L4/5 level. This is confirmed under c-arm guidance. A series of dilators are passed and the tubular retractor is docked on the L4 lamina. A bovie is used to clear the soft tissue off the lamina and the L 4/5 facet joint. A high speed sanjuana is then used to perform the laminectomy and take down the medial aspect of the L 4/5 facet joint. A kerrison rongeure was then used to take down the remaining lamina and smooth the edge of the laminectomy up to the point where the ligamentum flavum attaches. Attention was then brought to the medial aspect of the facet joint. The remaining medial aspect of the superior and inferior aspect of the facet joint were taken down with the kerrison from the pedicle of L4 to L 5. The facet joint had significant hypertrophy. Attention was then brought to the Ligamentum Flavum. The ligament was taken down from the lamina of L4 to L5 and out medially to the remaining facet joint. The ligament was thick. The dura was then exposed. The dura was in good repair. The L4 nerve was then traced with a curette out the L4/5 foramen and found to be adequately decompressed. The L5 nerve was traced with a curette around the L5 pedicle. The lateral recess was opened with a kerrison helping to further decompress the L5 nerve. Wound is then irrigated copiously with saline and surgiflo is used to stop any bleeding. The tubular retractor is removed and the A skin incision is made over the L5/S1 level. This is confirmed under c-arm guidance. A series of dilators are passed and the tubular retractor is docked on the L5 lamina. A bovie is used to clear the soft tissue off the lamina and the L 5/S1 facet joint. A high speed sanjuana is then used to perform the laminec herb and take down the medial aspect of the L 5/S1 facet joint. A kerrison rongeure was then used to take down the remaining lamina and smooth the edge of the laminectomy up to the point where the ligamentum flavum attaches. Attention was then brought to the medial aspect of the facet joint. The remaining medial aspect of the superior and inferior aspect of the facet joint were taken down with the kerrison from the pedicle of L5 to S1. The facet joint had significant hypertrophy. Attention was then brought to the Ligamentum Flavum. The ligament was taken down from the lamina of L5 to S1 and out medially to the remaining facet joint. The ligament was thick. The dura was then exposed. The dura was in good repair. The L5 nerve was then traced with a curette out the L5/S1 foramen and found to be adequately decompressed. The S1 nerve was traced with a curette around the S1 pedicle. The lateral recess was opened with a kerrison helping to further decompress the S1 nerve. Wound is then irrigated copiously with saline and surgiflo is used to stop any bleeding. The tubular retractor is removed and the wound is closed with vicryl and monocryl suture. Glue is then used to protect the wound. A sterile dressing is then placed. Patient was then placed in the supine position and transferred to the PACU in stable condition.
== END | disposition home or self-care (01) ==
PROVIDERS: Visit Provider Orthopaedic Surgery
PROC: (CPT 63005; principal; 2023-11-01 08:00)
DX: M48.062 Spinal stenosis, lumbar region with neurogenic claudication (principal); I48.91 Unspecified atrial fibrillation; M19.90 Unspecified osteoarthritis, unspecified site; K21.9 Gastro-esophageal reflux disease without esophagitis; I12.9 Hypertensive chronic kidney disease with stage 1 through stage 4 chronic kidney disease, or unspecified chronic kidney disease; N18.9 Chronic kidney disease, unspecified; E78.5 Hyperlipidemia, unspecified; G35 Multiple sclerosis; Z85.46 Personal history of malignant neoplasm of prostate
CPT/HCPCS: 63047; 63048 ×2; 72020; 76000; J0131; J0690; J2405; J2704; J3010; J3490; J7030

== ENCOUNTER → 2023-11-14 13:25 | Outpatient (BNVA) | payer OTHER, SELFPAY | PROVIDERS: Visit Provider Orthopaedic Surgery | DX: Z98.890 Other specified postprocedural states (principal); Z09 Encounter for follow-up examination after completed treatment for conditions other than malignant neoplasm | CPT/HCPCS: 99024 ==

== ENCOUNTER → 2023-11-27 13:00 | Outpatient (BNVA) | payer OTHER, SELFPAY | PROVIDERS: Visit Provider Psychiatry & Neurology Neurology | DX: G35 Multiple sclerosis (principal); N18.9 Chronic kidney disease, unspecified; R29.90 Unspecified symptoms and signs involving the nervous system; G47.30 Sleep apnea, unspecified | CPT/HCPCS: 99212; 99213 ==

== ENCOUNTER → 2023-12-12 14:58 | Outpatient (BNVA) | payer OTHER, SELFPAY | PROVIDERS: Visit Provider Orthopaedic Surgery | DX: Z48.89 Encounter for other specified surgical aftercare (principal) | CPT/HCPCS: 99024 ==

== ENCOUNTER → 2024-01-23 14:56 | Outpatient (BNVA) | payer OTHER, SELFPAY | PROVIDERS: Visit Provider Orthopaedic Surgery | DX: Z98.890 Other specified postprocedural states (principal) | CPT/HCPCS: 99024 ==

== ENCOUNTER → 2024-03-20 08:23 | Outpatient (BNVA) | payer OTHER, SELFPAY | PROVIDERS: Visit Provider Nurse Practitioner Family | DX: E78.5 Hyperlipidemia, unspecified (principal); I48.91 Unspecified atrial fibrillation; R13.10 Dysphagia, unspecified; I12.9 Hypertensive chronic kidney disease with stage 1 through stage 4 chronic kidney disease, or unspecified chronic kidney disease; N18.9 Chronic kidney disease, unspecified; G35 Multiple sclerosis; J44.9 Chronic obstructive pulmonary disease, unspecified | CPT/HCPCS: 99213 ==

== ENCOUNTER 2024-04-06 11:46 | Outpatient (CLI) | payer OTHER, SELFPAY | END 2024-04-06 11:47 | disposition home or self-care (01) | LOC: LAB 11:49 | PROVIDERS: PCP Nurse Practitioner Family; Visit Provider Nurse Practitioner Family | DX: R97.21 Rising PSA following treatment for malignant neoplasm of prostate (principal) | CPT/HCPCS: 84153 ==

== ENCOUNTER 2024-06-05 13:19 | Outpatient (CLI) | payer OTHER, SELFPAY ==
[2024-06-05 13:55] LABS: Basophils # 0.2 10^3/uL (0.0-0.1); Basophils % 1.6 %; Eosinophils # 0.4 10^3/uL (0.0-0.8); Eosinophils % 4.6 %; Hematocrit 49.2 % (37-53); Lymphocytes # 1.8 10^3/uL (0.8-4.8); Mean Corpuscular HGB Conc 32.7 g/dL (30-55); Mean Corpuscular Hemoglobin 28.9 pg (27-33); Mean Corpuscular Volume 88.2 fl (82-101); Mean Platelet Volume 12.2 fL (7.4-10.4); Monocytes # 0.7 10^3/uL (0.2-0.9); Monocytes % 7.5 %; Neutrophils # 6.42 10^3/uL (1.8-7.7); Neutrophils % 66.8 %; Nucleated Red Blood Cells % 0 %; Platelet Count 192 10^3/cmm (157-399); Red Blood Count 5.58 10^6/uL (3.85-5.65); Red Cell Distribution Width 13.3 % (12.1-15.1); White Blood Count 9.61 10^3/uL (3.29-11.43)
[2024-06-05 14:13] LABS: Albumin Level 4.3 g/dL (3.5-5.2); Blood Urea Nitrogen 17 mg/dL (8-23); Calcium 9.6 mg/dL (8.5-10.5); Calcium 9.7 mg/dL (8.5-10.5); Carbon Dioxide 23 mmol/L (22-29); Chloride 102 mmol/L (98-107); Glucose 117 mg/dL (65-115); Phosphorus 2.3 mg/dL (2.5-4.5); Sodium 139 mmol/L (136-145)
[2024-06-05 14:17] LABS: Creatinine Urine, Random 76 mg/dL (39-259); Microalbum Creatinine Ratio Ur 13 mg/dL (0-20); Microalbumin Random Urine 1 ug/dL (0-20)
[2024-06-05 14:20] LABS: Parathyroid Hormone 48.5 pg/mL (15-65)
[2024-06-05 14:29] LABS: 25 Hydroxy Vitamin D 38 ng/mL (30-100)
== END 2024-06-05 13:20 | disposition home or self-care (01) ==
LOC: LAB 13:30
PROVIDERS: PCP Nurse Practitioner Family; Visit Provider Internal Medicine Nephrology
DX: N18.32 Chronic kidney disease, stage 3b (principal)
CPT/HCPCS: 36415; 80069; 82044; 82306; 82310; 83970; 85025

== ENCOUNTER → 2024-09-14 14:55 | Outpatient (BNVA) | payer OTHER, SELFPAY | PROVIDERS: PCP Family Medicine Geriatric Medicine; Visit Provider Internal Medicine | DX: I12.9 Hypertensive chronic kidney disease with stage 1 through stage 4 chronic kidney disease, or unspecified chronic kidney disease (principal); N18.9 Chronic kidney disease, unspecified; I48.91 Unspecified atrial fibrillation; Z79.01 Long term (current) use of anticoagulants; E78.5 Hyperlipidemia, unspecified; G35 Multiple sclerosis; J44.9 Chronic obstructive pulmonary disease, unspecified; R13.10 Dysphagia, unspecified; Z87.891 Personal history of nicotine dependence | CPT/HCPCS: 99213 ==

== ENCOUNTER → 2024-10-23 09:39 | Outpatient (BNVA) | payer OTHER, SELFPAY | PROVIDERS: PCP Family Medicine Geriatric Medicine; Visit Provider Orthopaedic Surgery | DX: M25.512 Pain in left shoulder (principal); G89.29 Other chronic pain | CPT/HCPCS: 99204 ==

== ENCOUNTER 2024-10-29 15:36 | Emergency (ER) | payer OTHER, SELFPAY ==
--- OUTSIDE RECORDS SUMMARY | 2024-10-23 04:40 | XMS_ITS | Continuity of Care Document ---
Author Name [facility] Organization [facility] Care Team Providers Care Wedding Cake Designer Name Role Phone [facility] Unavailable Unavailable Problems Combined list of problems from Department of Defense and Veterans Affairs facilities. It does not include entries that were removed or entered in error. Problem Status Onset Date Problem Type Date of Resolution Comments Source AF - Atrial Fibrillation ([facility] [id number]) Active Condition Oct 30, 2021 Entered By: DINO BUTLER Comment: New onset 10/2021. [place] [facility] Benign localised hyperplasia of prostate Active Condition [place] [facility] Candidal intertrigo Active Condition [place] [facility] Cervical spinal stenosis Active Condition Nov 06, 2019 Entered By: DINO BUTLER Comment: Referred to Neurosurgery 11/2019, due to cord impingement on MRI. [place] [facility] Chronic kidney disease stage 3B Active Condition [facility] Constipation Active Condition [facility] COVID-19 Active Condition Mar 09 Entered By: DINO BUTLER Comment: 2020. 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 [place] [facility] Hypercalcaemia Active Condition Sep Entered By: DINO BUTLER Comment: Hyperparathyroi dism, s/p Parathyroidecto my. [place] [facility] Hyperlipidemia (SNOMED CT 00634639) Active Condition [place] [facility] Hypothyroidism Active Condition [place] [facility] Multiple sclerosis (SNOMED CT 70570546) Active Condition [place] [facility] Narcolepsy Active Condition [place] [facility] OA - Osteoarthritis Active Condition [place] [facility] Orthostatic hypotension Active Condition [facility] Primary malignant neoplasm of prostate Active Condition [place] [facility] Recurrent major depressive episodes Active Condition [place] [facility] Renal Impairment ([facility] [id number]) Active Condition [place] [facility] Restless legs Active Condition [place] [facility] Allergies * (ICD-9-CM 995.3) Inactive Condition 03/26/2023 [place] [facility] Colonic Polyps (ICD-9-CM 211.3) Inactive Condition 03/26/2023 [place] [facility] Encounters for other Specified Administrative Purpose (ICD-9-CM V68.89) Inactive Condition 10/01/2018 [place] [facility] Fatigue Syndrome, Chronic * (ICD-9-CM 780.71) Inactive Condition 03/26/2023 [place] [facility] Lateral Epicondylitis (Tennis Elbow) (ICD-9-CM 726.32) Inactive Condition 03/26/2023 [place] [facility] Neck Pain Inactive Condition 03/26/2023 [place] [facility] PRIMARY INSOMNIA Inactive Condition 03/26/2023 [place] [facility] Routine General Medical Examination at a Health Care Facility * (ICD-9-CM V70.0) Inactive Condition 10/01/2018 [facility] Shoulder Pain Inactive Condition 03/26/2023 [place] [facility] Unresolved Inactive Condition 10/01/2018 [place] [facility] Diagnosis: ICD-10-CM Z51.81 Encounter for therapeutic drug level monitoring Active Diagnosis [place] [facility] Diagnosis: ICD-10-CM G35 Multiple sclerosis Active Diagnosis [facility] Diagnosis: ICD-10-CM M25.512 Pain in left shoulder Active Diagnosis [facility] Diagnosis: ICD-10-CM Z13.5 Encounter for screening for eye and ear disorders Active Diagnosis [place] [facility] Diagnosis: ICD-10-CM Z74.1 Need for assistance with personal care Active Diagnosis [place] [facility] Diagnosis: ICD-10-CM L72.8 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 Active Diagnosis [facility] Diagnosis: ICD-10-CM H90.3 Sensorineural hearing loss, bilateral Active Diagnosis [place] [facility] Diagnosis: ICD-10-CM Z00.00 Encntr for general adult medical exam w/o abnormal findings Active Diagnosis [facility] Diagnosis: ICD-10-CM Z09 Encntr for f/u exam aft trtmt for cond oth than malig neoplm Active Diagnosis [facility] Diagnosis: ICD-10-CM L72.0 Epidermal cyst Active Diagnosis [facility] Diagnosis: ICD-10-CM L98.9 Disorder of the skin and subcutaneous tissue, unspecified Active Diagnosis [facility] Diagnosis: ICD-10-CM M54.2 Cervicalgia Active Diagnosis [facility] Medications Combined list of outpatient medications from Department of Defense and Veterans Affairs facilities.Medications provided include 1) outpatient medications from the last 15 months, and 2) patient-reported medications. Medication Details Route Status Patient Instructions Prescription Expires Prescription Number Last Dispense Date Ordering Provider Order Date Order Qty Source AMANTADINE HCL 100MG CAP TAKE ONE CAPSULE BY MOUTH ONCE A DAY ORAL DISCONT INUED 08/02/2024 [id number] EDEN HERNANDEZ JR [address] [place] [address] [employer] AMANTADINE HCL 100MG TAB TAKE ONE TABLET BY MOUTH ONCE A DAY PARKINSO NS ORAL ACTIVE 03/25/2025 [id number] 5 DAR PERES ISTEL G [address] [place] [address] [facility] BUPROPION HCL 300MG 24HR TAB,SA TAKE ONE TABLET BY MOUTH ONCE A DAY SWALLOW WHOLE - DO NOT CRUSH OR CHEW. ORAL DISCONT INUED 04/30/2024 [id number] 4 BABITA BUTLER [address] [place] [address] [facility] BUPROPION HCL 300MG 24HR TAB,SA TAKE ONE TABLET BY MOUTH ONCE A DAY SWALLOW WHOLE - DO NOT CRUSH OR CHEW. ORAL 09/30/2024 [id number] 5 ADR PERES ISTEL G [address] [place] [address] [facility] CLONIDINE HCL 0.2MG TAB TAKE ONE TABLET BY MOUTH EVERY MORNING FOR HIGH BLOOD PRESSURE AND ONE TABLET IN THE EVENING. ORAL DISCONT INUED 04/30/2024 [id number] 4 BABITA BUTLER 2023 180 [facility] CLONIDINE HCL 0.2MG TAB TAKE ONE TABLET BY MOUTH EVERY MORNING FOR HIGH BLOOD PRESSURE AND ONE TABLET IN THE EVENING. ORAL 09/30/2024 [id number] 5 DAR PERES ISTEL G 2023 180 [facility] CYANOCOBALA MIN 1000MCG TAB TAKE ONE TABLET BY MOUTH ONCE A DAY ORAL ACTIVE 04/11/2025 [id number] 5 DAR PERES ISTEL G 2024 100 [facility] CYANOCOBALA MIN 1000MCG TAB TAKE ONE TABLET BY MOUTH ONCE A DAY ORAL DISCONT INUED 04/30/2024 [id number] 4 BABITA BUTLRE 2023 100 [facility] CYCLOBENZAP RINE HCL 10MG TAB TAKE ONE TABLET BY MOUTH THREE TIMES A DAY NEEDED FOR MUSCLE SPASM MAY CAUSE DROWSINE SS. DO NOT DRINK ALCOHOL WHILE TAKING THIS MEDICATI ON. ORAL 09/03/2024 [id number] 5 DAR PERES G 2023 270 [facility] DICLOFENAC NA 1% GEL,TOP APPLY 4 GM TO AFFECTED AREA(S) FOUR TIMES A DAY NEEDED FOR PAIN NO MORE THAN 16 GM/DAY TO ANY LOWER EXTREMIT Y JOINT. NO MORE THAN 8 GM/DAY TO ANY UPPER EXTREMIT Y JOINT. MAX 32GM/DAY OVER ALL JOINTS.( MEASURE DOSE WITH RULER INSIDE BOX) TOPICA L ACTIVE 09/09/2025 [id number] 5 PERESDAR ISTEL G 2024 300 [facility] DILTIAZEM (EQV-TIAZAC AB4) 120MG 24HR CAP TAKE ONE CAPSULE BY MOUTH ONCE A DAY ORAL DISCONT INUED 04/30/2024 [id number] 4 BABITA BUTLER 2023 90 [place] [facility] DILTIAZEM (EQV-TIAZAC AB4) 120MG 24HR CAP TAKE ONE CAPSULE BY MOUTH ONCE A DAY ORAL 09/30/2024 [id number] 5 PERES,KR ISTEL G 2023 90 [place] [facility] EDOXABAN 30MG TAB TAKE ONE TABLET BY MOUTH ONCE A DAY FOR ANTICOAG ULATION ORAL ACTIVE 10/10/2025 [id number] 5 ERWINAURORA 2024 90 [place] [facility] EDOXABAN 30MG TAB TAKE ONE TABLET BY MOUTH ONCE A DAY FOR ANTICOAG ULATION ORAL DISCONT INUED 07/21/2025 [id number] 5 ERWINAURORA 2024 90 [place] [facility] EDOXABAN 30MG TAB TAKE ONE TABLET BY MOUTH ONCE A DAY FOR ANTICOAG ULATION ORAL DISCONT INUED (EDIT) 08/02/2024 [id number] 5 AURORA HOOD 2023 90 [place] [facility] FOLIC ACID 1MG TAB TAKE ONE TABLET BY MOUTH ONCE A DAY FOR FOLIC ACID SUPPLEME NTATION ORAL 10/04/2024 [id number] 5 LARISADAR ISTEL G 2023 100 [facility] HYDROCHLORO THIAZIDE 25MG TAB TAKE ONE AND ONE-HALF TABLETS BY MOUTH ONCE A DAY ORAL ACTIVE 04/11/2025 [id number] 5 LARISADAR ISTEL G 2024 135 [facility] HYDROCHLORO THIAZIDE 25MG TAB TAKE ONE AND ONE-HALF TABLETS BY MOUTH ONCE A DAY ORAL DISCONT INUED 04/30/2024 [id number] 4 BABITA BUTLER 2023 135 [facility] HYDROXYZINE PAMOATE 50MG CAP TAKE ONE CAPSULE BY MOUTH AT BEDTIME *MAY CAUSE DROWSINE SS* ORAL ACTIVE 04/11/2025 [id number] 5 DAR PERES ISTEL G 2024 90 [facility] HYDROXYZINE PAMOATE 50MG CAP TAKE ONE CAPSULE BY MOUTH AT BEDTIME *MAY CAUSE DROWSINE SS* ORAL DISCONT INUED 04/30/2024 [id number] 4 BABITA BUTLER [address] [place] [address] [facility] IPRATROPIUM BR 0.03% SOLN,SPRAY, NASAL USE 2 SPRAYS INTO NOSTRIL( S) UP TO THREE TIMES A DAY NEEDED FOR NASAL DRAINAGE /POST NASAL DRIP NASAL 12/05/2023 [id number] CARLOS MILLERPAPO E R 2022 30 [place] [facility] LEVOTHYROXI NE NA 88MCG TAB TAKE ONE TABLET BY MOUTH EVERY MORNING BEFORE A MEAL FOR THYROID. TAKE 30 MINUTES BEFORE FOOD. TAKE SEPARATE LY FROM ALL OTHER MEDICATI ONS. ORAL 09/30/2024 [id number] 5 DAR PERES [address] [place] [address] [facility] LEVOTHYROXI NE NA 88MCG TAB (SYNTHROID) TAKE ONE TABLET BY MOUTH EVERY MORNING BEFORE A MEAL FOR THYROID. TAKE 30 MINUTES BEFORE FOOD. TAKE SEPARATE LY FROM ALL OTHER MEDICATI ONS. ORAL DISCONT INUED 04/30/2024 [id number] 4 BABITA BUTLER [address] [place] [address] [facility] LISINOPRIL 40MG TAB TAKE ONE TABLET BY MOUTH ONCE A DAY FOR HEART OR BLOOD PRESSURE ORAL ACTIVE 04/01/2025 [id number] 5 DAR PERES 2024 90 [place] [facility] LISINOPRIL 40MG TAB TAKE ONE TABLET BY MOUTH ONCE A DAY FOR HEART OR BLOOD PRESSURE ORAL DISCONT INUED 04/30/2024 [id number] 4 BABITA BUTLER [address] [place] [address] [facility] LOVASTATIN 40MG TAB TAKE ONE TABLET BY MOUTH EVERY EVENING TO LOWER CHOLESTE ROL (REPORT ANY MUSCLE PAIN OR WEAKNESS ) ORAL ACTIVE 04/11/2025 [id number] 5 DRA PERES [address] [place] [address] [facility] LOVASTATIN 40MG TAB TAKE ONE TABLET BY MOUTH EVERY EVENING TO LOWER CHOLESTE ROL (REPORT ANY MUSCLE PAIN OR WEAKNESS ) ORAL DISCONT INUED 04/30/2024 [id number] 4 BABITA BUTLER 2023 90 [facility] MIRTAZAPINE 45MG TAB TAKE ONE TABLET BY MOUTH AT BEDTIME ORAL ACTIVE 04/11/2025 [id number] 5 DAR PERES ISTEL G 2024 90 [facility] MIRTAZAPINE 45MG TAB TAKE ONE TABLET BY MOUTH AT BEDTIME ORAL DISCONT INUED 04/30/2024 [id number] 4 BABITA BUTLER 2023 90 [facility] MODAFINIL 200MG TAB TAKE ONE TABLET BY MOUTH EVERY MORNING FOR DAYTIME SLEEPINE SS ORAL 09/25/2023 [id number] EDEN HERNANDEZ JR 2023 30 [place] [facility] MULTIVITAMI NS CAP/TAB TAKE ONE TABLET BY MOUTH ONCE A DAY ORAL ACTIVE NILES GUNDERSON 2007 [facility] PANTOPRAZOL E NA 40MG TAB,EC TAKE ONE TABLET BY MOUTH EVERY MORNING BEFORE A MEAL TO LOWER STOMACH ACID - TAKE 30 MINUTES BEFORE MEAL(S) ORAL ACTIVE 03/17/2025 [id number] 5 DAR PREES ISTEL G 2024 90 [facility] PANTOPRAZOL E NA 40MG TAB,EC TAKE ONE TABLET BY MOUTH EVERY MORNING BEFORE A MEAL TO LOWER STOMACH ACID - TAKE 30 MINUTES BEFORE MEAL(S) ORAL DISCONT INUED 04/30/2024 [id number] 4 BABITA BUTLER 2023 90 [facility] POLYETHYLEN E GLYCOL 3350 PWDR,ORAL MIX AND DRINK 1 CAPFUL BY MOUTH AT BEDTIME NEEDED FOR CONSTIPA TION (MEASURE WITH CAP AND MIX IN 8 OZ OF WATER) ORAL ACTIVE 10/10/2025 [id number] SHILPI BRONSON E III 2024 1020 [facility] PRIMIDONE 50MG TAB TAKE TWO TABLETS BY MOUTH AT BEDTIME ORAL ACTIVE 04/11/2025 [id number] 5 DAR PERES ISTEL G 2024 180 [facility] PRIMIDONE 50MG TAB TAKE TWO TABLETS BY MOUTH AT BEDTIME ORAL DISCONT INUED 04/30/2024 [id number] 4 BABITA BUTLER 2023 180 [facility] ROPINIROLE HCL 2MG TAB TAKE ONE TABLET BY MOUTH TWICE A DAY AT 5PM AND AT BEDTIME ORAL DISCONT INUED 04/30/2024 [id number] 4 BABITA BUTLER 2023 180 [facility] ROPINIROLE HCL 2MG TAB TAKE ONE TABLET BY MOUTH TWICE A DAY AT 5PM AND AT BEDTIME ORAL 09/30/2024 [id number] 5 DAR PERES G 2023 180 [facility] SENNOSIDES 8.6MG TAB TAKE ONE TABLET BY MOUTH AT BEDTIME FOR CONSTIPA TION 3 NIGHTS PER WEEK, COLACE OTHER NIGHTS ORAL ACTIVE 10/10/2025 [id number] SHILPI BRONSON E III 2024 100 [facility] TAMSULOSIN HCL 0.4MG CAP TAKE TWO CAPSULES BY MOUTH EVERY EVENING APPROXIM ATELY 30 MINUTES AFTER THE SAME MEAL EACH DAY (FOR PROSTATE ) ORAL ACTIVE 04/11/2025 [id number] 5 DAR PERES ISTEClaudia G 2024 180 [facility] TAMSULOSIN HCL 0.4MG CAP TAKE TWO CAPSULES BY MOUTH EVERY EVENING APPROXIM ATELY 30 MINUTES AFTER THE SAME MEAL EACH DAY (FOR PROSTATE ) ORAL DISCONT INUED 04/30/2024 [id number] 4 BABITA BUTLER 2023 180 [facility] TIZANIDINE HCL 2MG TAB TAKE TWO TO THREE TAB TABLET(S ) BY MOUTH THREE TIMES A DAY DIRECTED FOR SPASTICI TY ORAL SUSPEND ED 09/09/2025 [id number] 5 DAR PERES 2024 270 [facility] Immunizations Combined list of available immunizations from the Department of Defense and Veterans Affairs facilities. Immunization Series Date Given Administered By Site Reaction Lot Number CVX Code Drug Certified Hyperbaric Technologist Status Comments Source COVID-19 (MODERNA), MRNA, LNP-S, PF, 50 MCG/0.5 ML (AGES 12+ YEARS) 7 2023 COLLIN SIMPSON R LEFT DELTO ID [id number] 312 complet ed [facility] TDAP 2023 COLLIN SIMPSON R RIGHT DELTO ID [id number] 115 complet ed [facility] COVID-19 (MODERNA), MRNA, LNP-S, PF, 50 MCG/0.5 ML (AGES 12+ YEARS) 1 2022 JESENIA LAZCANO RIGHT DELTO ID [id number] 312 complet ed [facility] INFLUENZA, HIGH-DOSE, QUADRIVALENT 2022 JESENIA LAZCANO RIGHT DELTO ID [id number] 197 complet ed [facility] INFLUENZA, INJECTABLE, QUADRIVALENT, PRESERVATIVE FREE 2021 150 complet ed [facility] COVID-19 (PFIZER), MRNA, LNP-S, BIVALENT, PF, 30 MCG/0.3 ML DOSE 5 2021 300 complet ed HISTORICA L INFORMATI ON - FROM OTHER REGISTRY, [facility] COVID-19 (PFIZER), MRNA, LNP-S, PF, 30 MCG/0.3 ML DOSE, TRAVIS-SUCROSE (AGES 12+ YEARS) 4 2021 217 complet ed HISTORICA L INFORMATI ON - FROM OTHER [facility] ZOSTER RECOMBINANT 2 2020 187 complet ed [facility] INFLUENZA, INJECTABLE, QUADRIVALENT, PRESERVATIVE FREE 2020 150 complet ed [facility] COVID-19 (PFIZER), MRNA, LNP-S, PF, 30 MCG/0.3 ML DOSE 3 2020 208 complet ed [facility] ZOSTER RECOMBINANT 2 2020 187 complet ed [facility] COVID-19 (PFIZER), MRNA, LNP-S, PF, 30 MCG/0.3 ML DOSE 2 02/26/ 2021 208 complet ed [facility] COVID-19 (PFIZER), MRNA, LNP-S, PF, 30 MCG/0.3 ML DOSE 1 2020 208 complet ed [facility] INFLUENZA, INJECTABLE, QUADRIVALENT, PRESERVATIVE FREE 2019 150 complet ed [facility] INFLUENZA, INJECTABLE, QUADRIVALENT, PRESERVATIVE FREE 2018 150 complet ed [facility] MENINGOCOCCAL C/Y-HIB PRP 2017 148 complet ed HISTORICA L INFORMATI ON - FROM OTHER REGISTRY, [facility] INFLUENZA, SEASONAL, INJECTABLE, PRESERVATIVE FREE 2016 140 complet ed [place] [facility] INFLUENZA, SEASONAL, INJECTABLE, PRESERVATIVE FREE 2015 140 complet ed [facility] PNEUMOCOCCAL POLYSACCHARID E PPV23 2015 33 complet ed [facility] INFLUENZA, SEASONAL, INJECTABLE, PRESERVATIVE FREE 2014 140 complet ed [facility] PNEUMOCOCCAL CONJUGATE PCV 13 2014 133 complet ed [facility] INFLUENZA, SEASONAL, INJECTABLE, PRESERVATIVE FREE 2013 140 complet ed [facility] TDAP 2012 115 complet ed Left Deltoid [facility] INFLUENZA, UNSPECIFIED FORMULATION 2012 88 complet ed [facility] INFLUENZA, UNSPECIFIED FORMULATION 2011 88 complet ed [facility] INFLUENZA, UNSPECIFIED FORMULATION 2010 88 complet ed [facility] INFLUENZA, UNSPECIFIED FORMULATION 2009 88 complet [facility] NOVEL INFLUENZA-H1N 1-09, ALL FORMULATIONS 2008 128 complet ed [employer] [facility] [facility] INFLUENZA, UNSPECIFIED FORMULATION 2008 88 complet ed [facility] INFLUENZA (HISTORICAL) 2007 88 complet ed [facility] Results Combined list of recent chemistry, hematology and other laboratory results from Department of Defense and Veterans Affairs, ranging from 15 months to all on record, depending upon the facility. Order Name Results Value Reference Range Date Interpretation Specimen Comments Source CYSTATIN C EGFR PANELS (STL-PB-MA ) CYSTATIN C [MASS/VOLUME ] IN SERUM OR PLASMA 2.27 mg/L 0.57 - 1.80 10/09 H Specimen Type: PLASMA Comment: Choice of which of the reported eGFR values to use depends on the clinical situation. For example, for patients with severe muscle wasting or reduced muscle mass, eGFR calculated using the 2012 cystatin equation may be preferred. Ordering Provider: PALOMA BRONSON R E III Report Released Date/Time: Oct 09, 2024 10:46 AM Reporting Lab: [address] Performing Lab: [address] [facility] CYSTATIN C EGFR PANELS (STL-PB-MA ) CKD-EPI CYSTATIN C (2011) 24.4 60 10/09 Specimen Type: PLASMA Comment: Choice of which of the reported eGFR values to use depends on the clinical situation. For example, for patients with severe muscle wasting or reduced muscle mass, eGFR calculated using the 2011 cystatin equation may be preferred. Ordering Provider: PALOMA BRONSON R E III Report Released Date/Time: Oct 09, 2024 10:46 AM Reporting Lab: [address] [address] Performing Lab: [place] [id number] [place] [address] [facility] CYSTATIN C EGFR PANELS (L-PB-MA ) CKD-EPI CREAT-CYSC (2020) 27.7 60 10/09 Specimen Type: PLASMA Comment: Choice of which of the reported eGFR values to use depends on the clinical situation. For example, for patients with severe muscle wasting or reduced muscle mass, eGFR calculated using the 2011 cystatin equation may be preferred. Ordering Provider: PALOMA BRONSON R E III Report Released Date/Time: Oct 09, 2024 10:46 AM Reporting Lab: [address] [address] Performing Lab: [id number] [place] [address] [facility] CYSTATIN C EGFR PANELS (STL-PB-MA ) CREATININE [MASS/VOLUME ] IN SERUM OR PLASMA 2.12 mg/dL 0.7 - 1.3 10/09 H Specimen Type: PLASMA Comment: Choice of which of the reported eGFR values to use depends on the clinical situation. For example, for patients with severe muscle wasting or reduced muscle mass, eGFR calculated using the 2012 cystatin equation may be preferred. Ordering Provider: PALOMA BRONSON R E III Report Released Date/Time: Oct 09, 2024 10:46 AM Reporting Lab: [facility] [address] [facility] [address] Performing Lab: [facility] [address] [facility] [address] [facility] FOLATE (PB) FOLATE [MASS/VOLUME ] IN SERUM OR PLASMA >20.0n g/mL 7 - 20 10/09 H Specimen Type: SERUM No comment entered. Ordering Provider: PALOMA BRONSON R E III Report Released Date/Time: Oct 08, 2024 02:18 PM Reporting Lab: [place] [facility] [address] [place] [address] Performing Lab: [place] [facility] [address] [place] [address] [facility] HGA1C HEMOGLOBIN A1C/HEMOGLOB IN.TOTAL IN BLOOD 5.3 4.0 - 6.0 10/09 Specimen Type: BLOOD No comment entered. Ordering Provider: PALOMA BRONSON R E III Report Released Date/Time: Oct 08, 2024 02:18 PM Reporting Lab: [place] [facility] [address] [place] [address] Performing Lab: [place] [facility] [address] [place] [address] [facility] B12 COBALAMIN (VITAMIN B12) [MASS/VOLUME ] IN SERUM OR PLASMA 1645 pg/mL 213 - 816 10/09 H Specimen Type: SERUM No comment entered. Ordering Provider: PALOMA BRONSON R E III Report Released Date/Time: Oct 08, 2024 02:18 PM Reporting Lab: [place] [facility] [address] [place] [address] Performing Lab: [place] [facility] [address] [place] [address] [facility] MAGNESIUM MAGNESIUM [MASS/VOLUME ] IN SERUM OR PLASMA 1.92 mg/dL 1.6 - 2.6 10/09 Specimen Type: PLASMA No comment entered. Ordering Provider: PALOMA BRONSON R E III Report Released Date/Time: Oct 08, 2024 02:18 PM Reporting Lab: [place] [facility] [address] [place] [address] Performing Lab: [place] [facility] [address] [place] [address] [facility] VITAMIN D, 25-HYDROXY 25-HYDROXYVI TAMIN D3 [MASS/VOLUME ] IN SERUM OR PLASMA 42.4 ng/mL 30 - 96 10/09 Specimen Type: SERUM No comment entered. Ordering Provider: PALOMA BRONSON R E III Report Released Date/Time: Oct 08, 2024 02:18 PM Reporting Lab: [place] [facility] [address] [place] [id number] Performing Lab: [place] [facility] [address] [place] [id number] [facility] CHOLESTERO L PANEL (PB) CHOLESTEROL [MASS/VOLUME ] IN SERUM OR PLASMA 124 mg/dL 0 - 200 10/09 Specimen Type: PLASMA No comment entered. Ordering Provider: PALOMA BRONSON R E III Report Released Date/Time: Oct 08, 2024 02:18 PM Reporting Lab: [place] [facility] [address] [place] [id number] Performing Lab: [place] [facility] [address] [place] [address] [facility] CHOLESTERO L PANEL (PB) TRIGLYCERIDE [MASS/VOLUME ] IN SERUM OR PLASMA 133 mg/dL 0 - 150 10/09 Specimen Type: PLASMA No comment entered. Ordering Provider: PALOMA BRONSON R E III Report Released Date/Time: Oct 08, 2024 02:18 PM Reporting Lab: [place] [facility] [address] [place] [address] Performing Lab: [place] [facility] [address] [place] [address] [facility] CHOLESTERO L PANEL (PB) CHOLESTEROL IN LDL [MASS/VOLUME ] IN SERUM OR PLASMA BY CALCULATION 46.0 mg/dL 10/09 Specimen Type: PLASMA No comment entered. Ordering Provider: PALOMA BRONSON R E III Report Released Date/Time: Oct 08, 2024 02:18 PM Reporting Lab: [place] [facility] [address] [place] [address] Performing Lab: [place] [facility] [address] [place] [address] [facility] CHOLESTERO L PANEL (PB) CHOLESTEROL IN HDL [MASS/VOLUME ] IN SERUM OR PLASMA 51.4 mg/dL 40 10/09 H Specimen Type: PLASMA No comment entered. Ordering Provider: PALOMA BRONSON R E III Report Released Date/Time: Oct 08, 2024 02:18 PM Reporting Lab: [place] [facility] [address] [place] [address] Performing Lab: [place] [facility] [address] [place] [address] [facility] CHOLESTERO L PANEL (PB) CHOLESTEROL IN HDL/CHOLESTE ROL.TOTAL [MASS RATIO] IN SERUM OR PLASMA 41.5 25 10/09 Specimen Type: PLASMA No comment entered. Ordering Provider: PALOMA BRONSON R E III Report Released Date/Time: Oct 08, 2024 02:18 PM Reporting Lab: [place] [facility] [address] [place] [address] Performing Lab: [place] [facility] [address] [place] [address] [facility] URINE ALBUMIN PROFILE-ih (PB) ALBUMIN [MASS/VOLUME ] IN URINE 6.29 mg/L 10/09 Specimen Type: URINE No comment entered. Ordering Provider: PALOMA BRONSON R E III Report Released Date/Time: Oct 08, 2024 02:18 PM Reporting Lab: [place] [facility] [address] [place] [address] Performing Lab: [place] [facility] [address] [place] [address] [facility] [facility] URINE ALBUMIN PROFILE-ih (PB) ALBUMIN/CREA TININE [MASS RATIO] IN URINE 9.29 mg/g 0 - 30 10/09 Specimen Type: URINE No comment entered. Ordering Provider: PALOMA BRONSON R E III Report Released Date/Time: Oct 08, 2024 02:18 PM Reporting Lab: [place] [facility] [address] [place] [address] Performing Lab: [place] [facility] [address] [place] [address] [facility] URINE ALBUMIN PROFILE-ih (PB) CREATININE [MASS/VOLUME ] IN URINE 67.68 mg/dL 10/09 Specimen Type: URINE No comment entered. Ordering Provider: PALOMA BRONSON R E III Report Released Date/Time: Oct 08, 2024 02:18 PM Reporting Lab: [place] [facility] [address] [place] [address] Performing Lab: [place] [facility] [address] [place] [address] [facility] TSH (MA-PB) THYROTROPIN [UNITS/VOLUM E] IN SERUM OR PLASMA 3.446 u[IU]/ mL 0.47 - 5 10/09 Specimen Type: SERUM No comment entered. Ordering Provider: PALOMA BRONSON R E III Report Released Date/Time: Oct 08, 2024 02:19 PM Reporting Lab: [place] [facility] [address] [place] [address] Performing Lab: [place] [facility] [address] [place] [address] [facility] CBC LEUKOCYTES [#/VOLUME] IN BLOOD BY AUTOMATED COUNT 8.4 10*3/u L 3.6 - 11.2 10/09 Specimen Type: BLOOD No comment entered. Ordering Provider: PALOMA BRONSON R E III Report Released Date/Time: Oct 08, 2024 02:18 PM Reporting Lab: [place] [facility] [address] [place] [address] Performing Lab: [place] [facility] [address] [place] [address] [facility] CBC ERYTHROCYTES [#/VOLUME] IN BLOOD BY AUTOMATED COUNT 5.02 10*6/u L 4.10 - 5.70 10/09 Specimen Type: BLOOD No comment entered. Ordering Provider: PALOMA BRONSON R E III Report Released Date/Time: Oct 08, 2024 02:18 PM Reporting Lab: [place] [facility] [address] [place] [address] Performing Lab: [place] [facility] [address] [place] [address] [facility] CBC HEMOGLOBIN [MASS/VOLUME ] IN BLOOD 14.5 g/dL 13.1 - 16.8 10/09 Specimen Type: BLOOD No comment entered. Ordering Provider: PALOMA BRONSON R E III Report Released Date/Time: Oct 08, 2024 02:18 PM Reporting Lab: [place] [facility] [address] [place] [address] Performing Lab: [place] [facility] [address] [place] [address] [facility] CBC HEMATOCRIT [VOLUME FRACTION] OF BLOOD 45.3 38.2 - 48.4 10/09 Specimen Type: BLOOD No comment entered. Ordering Provider: PALOMA BRONSON R E III Report Released Date/Time: Oct 08, 2024 02:18 PM Reporting Lab: [place] [facility] [address] [place] [facility] Performing Lab: [place] [facility] [address] [place] [address] [facility] CBC MCV [ENTITIC VOLUME] BY AUTOMATED COUNT 90.2 fL 80.0 - 100.0 10/09 Specimen Type: BLOOD No comment entered. Ordering Provider: PALOMA BRONSON R E III Report Released Date/Time: Oct 08, 2024 02:18 PM Reporting Lab: [place] [facility] [address] [place] [facility] Performing Lab: [place] [facility] [address] [place] [address] [facility] CBC MCH [ENTITIC MASS] BY AUTOMATED COUNT 28.9 pg 27.0 - 34.0 10/09 Specimen Type: BLOOD No comment entered. Ordering Provider: PALOMA BRONSON R E III Report Released Date/Time: Oct 08, 2024 02:18 PM Reporting Lab: [place] [facility] [address] [place] [address] Performing Lab: [place] [facility] [address] [place] [address] [facility] CBC MCHC [MASS/VOLUME ] BY AUTOMATED COUNT 32.0 g/dL 33.0 - 36.0 10/09 L Specimen Type: BLOOD No comment entered. Ordering Provider: PALOMA BRONSON R E III Report Released Date/Time: Oct 08, 2024 02:18 PM Reporting Lab: [place] [facility] [address] [place] [address] Performing Lab: [place] [facility] [address] [place] [address] [facility] CBC PLATELETS [#/VOLUME] IN BLOOD BY AUTOMATED COUNT 207 10*3/u L 150 - 400 10/09 Specimen Type: BLOOD No comment entered. Ordering Provider: PALOMA BRONSON R E III Report Released Date/Time: Oct 08, 2024 02:18 PM Reporting Lab: [place] [facility] [address] [place] [address] Performing Lab: [place] [facility] [address] [place] [address] [facility] CBC PLATELET MEAN VOLUME [ENTITIC VOLUME] IN BLOOD BY AUTOMATED COUNT 12.5 fL 7.5 - 11.2 10/09 H Specimen Type: BLOOD No comment entered. Ordering Provider: PALOMA BRONSON R E III Report Released Date/Time: Oct 08, 2024 02:18 PM Reporting Lab: [place] [facility] [address] [place] [address] Performing Lab: [place] [facility] [address] [place] [address] [facility] CBC ERYTHROCYTE DISTRIBUTION WIDTH [RATIO] BY AUTOMATED COUNT 14.0 11.8 - 15.1 10/09 Specimen Type: BLOOD No comment entered. Ordering Provider: PALOMA BRONSON R E III Report Released Date/Time: Oct 08, 2024 02:18 PM Reporting Lab: [place] [facility] [address] [place] [address] Performing Lab: [place] [facility] [address] [place] [address] [facility] CBC LYMPHOCYTES/ 100 LEUKOCYTES IN BLOOD BY AUTOMATED COUNT 23.4 10/09 Specimen Type: BLOOD No comment entered. Ordering Provider: PALOMA BRONSON R E III Report Released Date/Time: Oct 08, 2024 02:18 PM Reporting Lab: [place] [facility] [address] [place] [address] Performing Lab: [place] [facility] [address] [place] [address] [facility] CBC MONOCYTES/10 0 LEUKOCYTES IN BLOOD BY AUTOMATED COUNT 10.8 10/09 Specimen Type: BLOOD No comment entered. Ordering Provider: PALOMA BRONSON R E III Report Released Date/Time: Oct 08, 2024 02:18 PM Reporting Lab: [place] [facility] [address] [place] [address] Performing Lab: [place] [facility] [address] [place] [address] [facility] CBC NEUTROPHILS/ 100 LEUKOCYTES IN BLOOD BY AUTOMATED COUNT 58.3 10/09 Specimen Type: BLOOD No comment entered. Ordering Provider: PALOMA BRONSON R E III Report Released Date/Time: Oct 08, 2024 02:18 PM Reporting Lab: [place] [facility] [address] [place] [address] Performing Lab: [place] [facility] [address] [place] [address] [facility] CBC EOSINOPHILS/ 100 LEUKOCYTES IN BLOOD BY AUTOMATED COUNT 5.6 10/09 Specimen Type: BLOOD No comment entered. Ordering Provider: PALOMA BRONSON R E III Report Released Date/Time: Oct 08, 2024 02:18 PM Reporting Lab: [place] [facility] [address] [place] [address] Performing Lab: [place] [facility] [address] [place] [address] [facility] CBC BASOPHILS/10 0 LEUKOCYTES IN BLOOD BY AUTOMATED COUNT 1.3 10/09 Specimen Type: BLOOD No comment entered. Ordering Provider: PALOMA BRONSON R E III Report Released Date/Time: Oct 08, 2024 02:18 PM Reporting Lab: [place] [facility] [address] [place] [address] Performing Lab: [place] [facility] [address] [place] [address] [place] [address] [facility] CBC LYMPHOCYTES [#/VOLUME] IN BLOOD BY AUTOMATED COUNT 1.96 10*3/u L 0.77 - 4.50 10/09 Specimen Type: BLOOD No comment entered. Ordering Provider: PALOMA BRONSON R E III Report Released Date/Time: Oct 08, 2024 02:18 PM Reporting Lab: [place] [facility] [address] [place] [address] Performing Lab: [place] [facility] [address] [place] [address] [facility] CBC MONOCYTES [#/VOLUME] IN BLOOD BY AUTOMATED COUNT 0.90 10*3/u L 0.19 - 0.8 10/09 H Specimen Type: BLOOD No comment entered. Ordering Provider: PALOMA BRONSON R E III Report Released Date/Time: Oct 08, 2024 02:18 PM Reporting Lab: [place] [facility] [address] [place] [address] Performing Lab: [place] [facility] [address] [place] [address] [facility] CBC NEUTROPHILS [#/VOLUME] IN BLOOD BY AUTOMATED COUNT 4.88 10*3/u L 2.10 - 8.00 10/09 Specimen Type: BLOOD No comment entered. Ordering Provider: PALOMA BRONSON R E III Report Released Date/Time: Oct 08, 2024 02:18 PM Reporting Lab: [place] [facility] [address] [place] [address] Performing Lab: [place] [facility] [address] [place] [address] [facility] CBC EOSINOPHILS [#/VOLUME] IN BLOOD BY AUTOMATED COUNT 0.47 10*3/u L 0.00 - 0.60 10/09 Specimen Type: BLOOD No comment entered. Ordering Provider: PALOMA BRONSON R E III Report Released Date/Time: Oct 08, 2024 02:18 PM Reporting Lab: [place] [facility] [address] [place] [address] Performing Lab: [place] [facility] [address] [place] [address] [facility] CBC BASOPHILS [#/VOLUME] IN BLOOD BY AUTOMATED COUNT 0.11 10*3/u L 0.00 - 0.20 10/09 Specimen Type: BLOOD No comment entered. Ordering Provider: PALOMA BRONSON R E III Report Released Date/Time: Oct 08, 2024 02:18 PM Reporting Lab: [place] [facility] [address] [place] [address] Performing Lab: [place] [facility] [address] [place] [address] [facility] CBC IMMATURE GRANULOCYTES /100 LEUKOCYTES IN BLOOD BY AUTOMATED COUNT 0.6 10/09 Specimen Type: BLOOD No comment entered. Ordering Provider: PALOMA BRONSON R E III Report Released Date/Time: Oct 08, 2024 02:18 PM Reporting Lab: [place] [facility] [address] [place] [address] Performing Lab: [place] [facility] [address] [place] [address] [facility] CBC IMMATURE GRANULOCYTES [#/VOLUME] IN BLOOD BY AUTOMATED COUNT 0.05 10*3/u L 0.00 - 0.05 10/09 Specimen Type: BLOOD No comment entered. Ordering Provider: PALOMA BRONSON R E III Report Released Date/Time: Oct 08, 2024 02:18 PM Reporting Lab: [place] [facility] [address] [place] [address] Performing Lab: [place] [facility] [address] [place] [address] [place] [facility] Vital Signs Combined list of inpatient and outpatient Vital Signs from Department of Defense and Veterans Affairs, ranging from 12 months to all on record, depending upon the facility. Vital Sign Value Date Comments Source SYSTOLIC BLOOD PRESSURE 122 10/09/2024 11:32:35 [facility] DIASTOLIC BLOOD PRESSURE 62 10/09/2024 11:32:[place] [facility] PULSE OXIMETRY 97 % 10/09/2024 11:32:35 [facility] WEIGHT 205.1 10/09/2024 11:32:[place] [facility] BMI 28 kg/m2 10/09/2024 11:32:35 [facility] PAIN 3 10/09/2024 11:32:35 [facility] TEMPERATURE 98 10/09/2024 11:32:35 [facility] PULSE 52 10/09/2024 11:32:[facility] RESPIRATION 20 10/09/2024 11:32:35 [facility] SYSTOLIC BLOOD PRESSURE 128 09/08/2024 13:41:48 [facility] DIASTOLIC BLOOD PRESSURE 65 09/08/2024 13:41:48 [facility] PULSE OXIMETRY 97 % 09/08/2024 13:41:48 [facility] TEMPERATURE 97.7 09/08/2024 13:41:48 [facility] PULSE 58 09/08/2024 13:41:48 [facility] RESPIRATION 18 09/08/2024 13:41:48 [facility] SYSTOLIC BLOOD PRESSURE 110 11/08/2023 15:38:52 [facility] DIASTOLIC BLOOD PRESSURE 62 11/08/2023 15:38:52 [facility] PULSE OXIMETRY 97 11/08/2023 15:38:52 [facility] WEIGHT 215 11/08/2023 15:38:52 [facility] BMI 29 kg/m2 11/08/2023 15:38:52 [facility] PAIN 3 11/08/2023 15:38:52 [facility] TEMPERATURE 98 11/08/2023 15:38:52 [facility] PULSE 60 11/08/2023 15:38:52 [facility] RESPIRATION 20 11/08/2023 15:38:52 [facility] Encounters Combined list of: 1) Encounters from Department of Veterans Affairs facilities going backup to the last 18 months, not all VA inpatient encounters are included; 2) Encounters from the Department of Defense facilities going backup to 280 months. Location Location Details Encounter Type Encounter Number Reason For Visit Attending Provider ADM Date DC Date Status Disposition Source [facility] Outpatient Encounter [id number] 04[facility] En[facility] [id number] 04/30 [facility] Outpatient Encounter [id number] 05/20 [facility] [place] [facility] Outpatient Encounter [id number] 05/27 [place] [facility] [place] [facility] Outpatient Encounter [id number] VALENTE FERRO 05/27 [place] [facility] OFF/OP EST JULY X REQ PHY/QHP [id number] Diagnos is: ICD-10- CM M54.2 Cervica HEBERT Sequeira 06/23 [facility] Outpatient Encounter [id number] Latanya BUTLER 06/23 [facility] Outpatient Encounter [id number] Latanya BUTLER 06[facility]OP EST JULY X REQ PHY/QHP [id number] Diagnos is: ICD-10- CM L98.9 Disorde r of the skin and subcuta neous tissue, unspeci fied VALENTE CLINE A 06/25 [facility] Outpatient Encounter [id number] 06/26 [facility] Outpatient Encounter [id number] 06/26 [facility] Outpatient Encounter [id number] 07/02 [facility] Outpatient Encounter [id number] 07/10 [facility] [place] [facility] Outpatient Encounter [id number] 07/10 [place] [facility] OFFICE O/P EST SF 10 MIN [id number] Diagnos is: ICD-10- CM L72.0 Epiderm al cyst Rony CEBALLOS 07/17 [facility] Outpatient Encounter [id number] MARITZA BATES 08/01 [facility] [place] [facility] Outpatient Encounter [id number] CARLOS KATZ 08/01 [place] [facility] Outpatient Encounter [id number] 08/05 [facility] Outpatient Encounter [id number] 08/07 [facility] Outpatient Encounter [id number] 08/08 [facility] N [facility] Outpatient Encounter [id number] 08/13 [facility] Outpatient Encounter [id number] 08/27 [facility] Outpatient Encounter [id number] 08/28 [facility] Outpatient Encounter [id number] 09/01 [facility] Outpatient Encounter [id number] JOYA HOLMAN E 09/09 [facility] Outpatient Encounter [id number] 09/17 [facility] Outpatient Encounter [id number] 09/19 [facility] MTMS BY PHARM EST 15 MIN [id number] Diagnos is: ICD-10- CM Z51.81 Encount er for therape utic drug level monitor AURORA Wren 09/23 [facility] OFFICE O/P EST MOD 30 MIN [id number] Diagnos is: ICD-10- CM Z09 Encntr for f/u exam aft trtmt for cond oth than malig CHIKIS Ulloa 09/24 [facility] PH[facility]GRAPH Y W/I&R [id number] Diagnos is: ICD-10- CM Z13.5 Encount er for screeni ng for eye and ear disorde rs LOLA LUEVANOSA Jacqui 09/24 [facility] [place] [facility] Outpatient Encounter [id number] Diagnos is: ICD-10- CM Z13.5 Encount er for screeni ng for eye and ear disorde rs YOUNG LEWIS S 09/24 [place] [facility] Outpatient Encounter [id number] 09/25 [facility] Outpatient Encounter [id number] 09/26 [facility] OFFICE O/P EST MOD 30 MIN [id number] Diagnos is: ICD-10- CM Z00.00 Encntr for general adult medical exam w/o abnorma l finding s CHIKIS PERES STEClaudia G 09/29 [facility] WHEELCHAIR MNGMENT TRAINING [id number] Diagnos is: ICD-10- CM G35 Multipl e scleros is ARCELIA HORTON G 10/01 [facility] HEARING AID REPAIR/MOD IFYING [id number] Diagnos is: ICD-10- CM H90.3 Sensori neural hearing loss, bilater SINDHU Coleman E 10/01 [facility] Outpatient Encounter [id number] 10/07 [facility] Outpatient Encounter [id number] 10/07 [facility] En[facility] [id number] 10/07 [facility] En[facility] [id number] GURVINDER SIMPSON R 10/13 [facility] Outpatient Encounter [id number] 10/15 [facility] [place] [facility] HC PRO PHONE CALL 11-20 MIN [id number] Diagnos is: ICD-10- CM G35 Multipl e scleros is CARLOS DALY R 10/22 [place] [facility] Outpatient Encounter [id number] JOSE GALLEGOS 10/24 [facility] Outpatient Encounter [id number] 10/27 [facility] Outpatient Encounter [id number] 10/28 [facility] Outpatient Encounter [id number] 10/28 [facility] WHEELCHA[facility] MNGMENT TRAINING [id number] Diagnos is: ICD-10- CM G35 Multipl e scleros is ARCELIA HORTON 10/29 [facility] Outpatient Encounter [id number] 10/30 [facility] EST JULY X REQ PHY/QHP [id number] Diagnos is: ICD-10- CM L72.8 Other follicu lar cysts of the skin and subcuta neous tissue GURVINDER SIMPSON DEVORAH R 11/07 [facility] Outpatient Encounter [id number] 11/11 [facility] Outpatient Encounter [id number] 11/12 [facility] Outpatient Encounter [id number] 11/26 [facility] Outpatient Encounter [id number] 12/01 [facility] Outpatient Encounter [id number] 12/02 [facility] Outpatient Encounter [id number] [id number] 12/11 [facility] Outpatient Encounter [id number] [id number] 12/17 [facility] Outpatient Encounter [id number] [id number] 1 12/17 [facility] Outpatient Encounter [id number] [id number] 12/18 [facility] Outpatient Encounter [id number] [id number] 12/25 [facility] [place] [facility] Out[facility] Encounter [id number] [id number] 3 01/05 [facility] Outpatient Encounter [id number] [id number] 02/16 [facility] Outpatient Encounter [id number] [id number] 2 03/16 [facility] Outpatient Encounter [id number] [id number] 03/20 [facility] Outpatient Encounter [id number] [id number] 03/20 [facility] Outpatient Encounter [id number] [id number] 03/30 [facility] PH1 ASSMT&MGMT NQHP 5-10 [id number] [id number] Diagnos is: ICD-10- CM Z74.1 Need for assista nce with persona JOSE Peña 03/[address] [facility] Outpatient Encounter [id number] 04/03 [facility] [employer] Y W/I&R [id number] Diagnos is: ICD-10- CM Z13.5 Encount er for screeni ng for eye and ear disorde LOLA Alanis 04/03 [facility] [employer] Outpatient Encounter [id number] Diagnos is: ICD-10- CM Z13.5 Encount er for screeni ng for eye and ear disorde YOUNG Sweeney S 04/03 [facility] Outpatient Encounter [id number] LOLA LUEVANO 04/03 [facility] Outpatient Encounter [id number] 04/09 [facility] En[facility] [id number] 04/14 [facility] Outpatient Encounter [id number] 05/11 [facility] Outpatient Encounter [id number] 05/19 [facility] Outpatient Encounter [id number] 05/25 [facility] Outpatient Encounter [id number] 06/05 [facility] Outpatient Encounter [id number] 06/10 [facility] Outpatient Encounter [id number] 06/23 [facility] Outpatient Encounter [id number] 06/24 [facility] Encounter [id number] 07/03 [facility] Outpatient Encounter [id number] GREGORY MONROE M 07/06 [facility] Outpatient Encounter [id number] 07/07 [facility] Outpatient Encounter [id number] 07/10 [facility] Outpatient Encounter [id number] 07/13 [facility] En[facility] [id number] 07/15 [facility] Outpatient Encounter [id number] 07/28 [facility] Outpatient Encounter [id number] SUZY LORENZ 07/29 [facility] Outpatient Encounter [id number] 07/29 [facility] Outpatient Encounter [id number] 08/14 [facility] Outpatient Encounter [id number] 08/19 [facility] OFFICE O/P EST LOW 20 MIN [id number] Diagnos is: ICD-10- CM M25.512 Pain in left shoulde CHIKIS Azar 09/08 [facility] Outpatient Encounter [id number] JOSE GASPAR A 09/09 [facility] Outpatient Encounter [id number] 09/22 [facility] Outpatient Encounter [id number] JOSE ANTONIO HARDING T 10/05 [facility] Outpatient Encounter [id number] JOSE ANTONIO HARDING 10/06 [facility] Outpatient Encounter [id number] 10/06 [facility] OFFICE O/P EST HI 40 MIN [id number] Diagnos is: ICD-10- CM G35 Multipl e scleros is MARCOS BRONSON ER E III 10/09 [facility] BY PHARM EST 15 MIN [id number] Diagnos is: ICD-10- CM Z51.81 Encount er for therape utic drug level monitor AURORA Wren 10/[address] [facility] Outpatient Encounter [id number] JOSE GALLEGOS 10/19 [facility] Outpatient Encounter [id number] JOSE GALLEGOS 10/19 [facility] Outpatient Encounter [id number] 10/20 [facility] Outpatient Encounter [id number] 10/22 [facility] Social History Combined list of available smoking, tobacco, and other social history from Department of Defense and Veterans Affairs facilities. Social History Type Response Date Comment Sourc e Tobacco smoking status NHIS VA-TOBACCO USE FORMER CIGARETTES 10/09/2024 [facility] History of tobacco use VA-TOBACCO NEVER USED OTHER TYPE 10/09/2024 [facility] History of tobacco use VA-TOBACCO QUIT 1 5 YRS OR MORE 09/25/2023 [facility] History of tobacco use VA-TOBACCO FORMER USER 09/21/2022 [facility] History of tobacco use VA-TOBACCO QUIT 1 5 YRS OR MORE 02/13/2021 [facility] History of tobacco use VA-TOBACCO FORMER USER 02/24/2020 [facility] History of tobacco use VA-TOBACCO QUIT 1 5 YRS OR MORE 03/27/2018 [facility] History of tobacco use QUIT TOBACCO >7 Y EARS AGO 08/13/2017 [facility] History of tobacco use QUIT TOBACCO >7 Y EARS AGO 01/30/2017 [facility] History of tobacco use QUIT TOBACCO >7 Y EARS AGO 06/04/2008 [facility] History of tobacco use QUIT TOBACCO >7 Y EARS AGO 11/05/2007 [facility] Plan of Care List of future care activities from Department of [facility] Affairs facilities. Additional future care activities may be listed in the Assessment and Plan section. Date/Time Care Activity Care Activity Detail Facili ty 10/23/2024 AMBULATORY - MEDICINE AMBULATORY - MEDICI JOHNNY TIRADO [facility]
--- OUTSIDE RECORDS SUMMARY | 2024-10-29 15:47 | XMS_ITS | Clinical Summary ---
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 0 Active hydroCHLOROthia zide 25 MG tablet Take 25 mg by mouth in the morning. Active hydrOXYzine (VISTARIL) 50 MG capsule Take 50 mg by mouth in the morning and 50 mg at noon and 50 mg in the evening. Active levothyroxine (SYNTHROID, LEVOTHROID) 88 MCG tablet Take 88 mcg by mouth in the morning. 0 Active lisinopril 40 MG tablet Take 40 mg by mouth in the morning. Active lovastatin (MEVACOR) 40 MG tablet Take 40 mg by mouth 1 (one) time each day Active melatonin tablet Take 1 tablet by mouth at bed time Active modafinil (PROVIGIL) 200 MG tablet Take 200 mg by mouth in the morning. Active pantoprazole (PROTONIX) 40 MG EC tablet Take 40 mg by mouth in the morning. Active rOPINIRole (REQUIP) 0.5 MG tablet Take 2 mg by mouth in the morning and 2 mg in the evening. Active amantadine (SYMMETREL) 100 MG capsule 100 mg 1 (one) time each day 2 Active cholecalciferol (VITAMIN D-3 SUPER STRENGTH) 50 MCG (1999 UT) tablet 50 mcg 1 (one) time each day 2 Active TAMSULOSIN HCL PO 0.8 mg 1 (one) time each day 2 Active cloNIDine (CATAPRES) 0.1 MG tablet 0.2 mg in the morning and 0.2 mg in the evening. 0 Active cyclobenzaprine (FLEXERIL) 10 MG tablet 10 mg 3 (three) times a day if needed 0 Active mirtazapine (REMERON) 45 MG tablet Take 45 mg by mouth every night Active dilTIAZem (CARDIZEM) 120 MG immediate release tablet Take 120 mg by mouth 1 (one) time each day Active primidone (MYSOLINE) 50 MG tablet Take 100 mg by mouth 1 (one) time each day Active Cyanocobalamin (VITAMIN B 12 PO) Take 1 tablet by mouth 1 (one) time each day Active Edoxaban Tosylate 30 MG tablet Take 1 tablet by mouth 1 (one) time each day Active diphenhydrAMINE (BENADRYL) 25 MG tablet Take 25 mg by mouth at night if needed for itching Active Psyllium (DAILY FIBER PO) Take 1 tablet by mouth in the morning and 1 tablet in the evening. 100 % psyllium . Active HYDROcodone-bogdan taminophen (NORCO) 5-325 MG per tablet Take 1 tablet by mouth every 6 (six) hours if needed for moderate pain or mild pain 4 Active gabapentin (NEURONTIN) 300 MG capsule Take 300 mg by mouth in the morning and 300 mg at noon and 300 mg in the evening. 4 Active Active Problems Problem Noted Date Diagnosed Date Sleep apnea 12/31/2021 Chronic kidney disease stage 3A 12/31/2021 Essential hypertension 12/31/2021 Family History Medical History Relation Comments Cancer Father Breast cancer Mother Relation Status Comments Father Mother Social History Tobacco Use Types Packs/Day Years Used Date Smoking Tobacco: Former Cigarettes Smokeless Tobacco: Never Tobacco Cessation:Counseling Given: Not Answered Alcohol Use Standard Drinks/Week Comments Not Currently 0 (1 standard drink = 0.6 oz pur e alcohol) Sex and Gender Information Value Date Recorded Sex Assigned at Not on file Legal Sex Male 11:16 AM EDT Gender Identity Not on file Sexual Orientation Not on file Last Filed Vital Signs Vital Sign Reading Time Taken Comments Blood Pressure 144/70 06/10/2024 2:59 PM CDT Pulse 63 06/10/2024 2:59 PM CDT Temperature - - Respiratory Rate - - Oxygen Saturation 97% 06/10/2024 2:59 PM CDT Inhaled Oxygen Concentration - - Weight 98.4 kg (217 lb) 07/03/2023 2:46 PM CDT Height 180.3 cm (5' 11 ) 07/03/2023 2:46 PM CDT Body Mass Index 30.27 07/03/2023 2:46 PM CDT Plan of Treatment Upcoming Encounters Date Type Department Care Team (Late st Contact Info) Description 12/14/2024 10:20 AM CDT Office Visit [facility] [address] [place] [address] Carla Valverde MD [address] [facility] [address] [place] [id number] Health Maintenance Due Date Last Done Comments Pneumococcal Vaccine: 50+ Ye ars (1 of 2 - PCV) 1964 Influenza Vaccine (#1) 2024 Hepatitis B Vaccine Aged Out No longe r eligible based on patient's age to complete this topic Insurance [facility] Regions 1,2,3 (VACCN) Care Teams Regional Owner Operator Truck Driver Relationship Specialty Start Date End Date Marcos Gibson [address] [place] [address] PCP - General Internal Medicine 01/02/22
--- OUTSIDE RECORDS SUMMARY | 2024-10-29 15:47 | XMS_ITS ---
Author Organization [facility] Address [address] [place] [address] Phone Care Team Providers Care Pin Or Clip Fastener Name Role Phone Unavailable Primary Care Provider Unavailabl e Active Problems Problem Noted Date Diagnosed Date Hypercalcemia 04/21/2020 Overview (04/21/2020): Feb 24, 2020 Entered By: BABITA BUTLER Comment: Suspect Hyperparathyroidism. Multiple sclerosis 04/21/2020 Essential hypertension 04/21/2020 Arthralgia of shoulder 04/21/2020 Benign neoplasm of colon 04/21/2020 Cervical spinal stenosis - s/p ACDP 12/2019 [facility] 04/21/2020 Overview (04/21/2020): Nov 06, 2019 Entered By: BABITA BUTLER Comment: Referred to Neurosurgery 11/2019, due to cord impingement on MRI. Chronic fatigue syndrome 04/21/2020 COVID-19 04/21/2020 Overview (04/21/2020): Mar 09, 2020 Entered By: BABITA BUTLER Comment: 2020. 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 Hypothyroidism 04/21/2020 Hyperlipidemia 04/21/2020 Narcolepsy 04/21/2020 Neck pain 04/21/2020 Osteoarthrosis 04/21/2020 Persistent insomnia 04/21/2020 Primary malignant neoplasm of prostate Recurrent major depressive episodes 04/21/2020 History of prostate cancer - s/p brachytherapy 2 015 04/21/2020 Personal history of radiatio n therapy - brachytherapy for prostate cancer 04/21/2020 Dysphagia, pharyngoesophageal phase 04/21/2020 Primary hyperparathyroidism 10/03/2018 Current Treatment and Therapy Plans No current plan information found. Past Treatment and Therapy Plans No past plan information found. Lifetime Dose Tracking * Chemical Lifetime Dose Automatic Entry Manual Entr y Effective Dose 26.9 mSv 26.9 mSv 0 mSv Total DLP 3,033 DLP 3,033 DLP 0 DLP CTDIvol Max 38.2 mGy 38.2 mGy 0 mGy CTDIvol Min 31.9 mGy 31.9 mGy 0 mGy
--- OUTSIDE RECORDS SUMMARY | 2024-10-29 15:48 | XMS_ITS | Encounter Summary ---
Author Organization [facility] Address [address] [place] [address] Care Team Providers Care Men'S Leather Dress Belt Maker Name Role Phone Unavailable Primary Care Provider Unavailabl e Encounter Details Date Type Department Care Team (Latest Contact Info) Description 08/23/2000 Outpatient Historical [facility] Ebenezer Sellers NO ADDRESS ON FILE Other and unspecified hyperlipidemia (Primary Dx); Unspecified essential hypertension; Unspecified hypothyroidism; Encounter for long-term (current) use of other medications Social History Tobacco Use Types Packs/Day Years Used Date Smoking Tobacco: Never Assessed Sex and Gender Information Value Date Recorded Sex Assigned at Not on file Legal Sex 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
--- OUTSIDE RECORDS SUMMARY | 2024-10-29 15:48 | XMS_ITS | Encounter Summary ---
Author Organization [facility] Address [address] [place] [address] Care Team Providers Care Ruby On Rails Software Developer Name Role Phone Unavailable Primary Care Provider Unavailabl e Encounter Details Date Type Department Care Team (Latest Contact Info) Description 06/25/2000 Outpatient Historical HIS [facility] Ebenezer Sellers NO ADDRESS ON FILE Other abnormal blood chemistry (Primary Dx) Social History Tobacco Use Types Packs/Day Years Used Date Smoking Tobacco: Never Assessed Sex and Gender Information Value Date Recorded Sex Assigned at Not on file 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
--- OUTSIDE RECORDS SUMMARY | 2024-10-29 15:48 | XMS_ITS ---
Author Organization [facility] Address [address] [place] [address] Phone Care Team Providers Care Stores Naval Name Role Phone Unavailable Primary Care Provider Unavailabl e Active Problems Problem Noted Date Diagnosed Date Essential hypertension 04/21/2020 Cervical spinal stenosis - s/p ACDP 12/2019 [facility] 04/21/2020 Overview (07/01/2020): Nov 06, 2019 Entered By: BABITA BUTLER Comment: Referred to Neurosurgery 11/2019, due to cord impingement on MRI. Cramp in lower leg associated with rest 04/21/19 21 Hypothyroidism 04/21/2020 Neck pain 04/21/2020 Primary malignant neoplasm of prostate Hypercalcemia 04/21/2020 Overview (07/01/2020): Feb 24, 2020 Entered By: BABITA BUTLER Comment: Suspect Hyperparathyroidism. Arthralgia of shoulder 04/21/2020 Chronic fatigue syndrome 04/21/2020 Gastro-esophageal reflux 04/21/2020 Hyperlipidemia 04/21/2020 Osteoarthrosis 04/21/2020 Recurrent major depressive episodes 04/21/2020 Personal history of radiatio n therapy - brachytherapy for prostate cancer 04/21/2020 Multiple sclerosis 04/21/2020 Benign neoplasm of colon 04/21/2020 COVID-19 04/21/2020 Overview (07/01/2020): Mar 09, 2020 Entered By: BABITA BUTLER Comment: 2020. Gastrointestinal stromal kyra or - [place] [facility] [place] 04/21/2020 Overview (07/01/2020): Mar 27, 2018 Entered By: BABITA BUTLER Comment: Surgically removed 2017. Narcolepsy 04/21/2020 Persistent insomnia 04/21/2020 History of prostate cancer - s/p brachytherapy 2 015 04/21/2020 Dysphagia, pharyngoesophageal phase 04/21/2020 Primary hyperparathyroidism 10/03/2018 Current Treatment and Therapy Plans No current plan information found. Past Treatment and Therapy Plans No past plan information found. Lifetime Dose Tracking * Chemical Lifetime Dose Automatic Entry Manual Entr y Effective Dose 26.9 mSv 0 mSv 26.9 mSv Total DLP 3,033 DLP 0 DLP 3,033 DLP CTDIvol Max 38.2 mGy 0 mGy 38.2 mGy CTDIvol Min 31.9 mGy 0 mGy 31.9 mGy
--- OUTSIDE RECORDS SUMMARY | 2024-10-29 15:48 | XMS_ITS | Encounter Summary ---
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
--- OUTSIDE RECORDS SUMMARY | 2024-10-29 15:48 | XMS_ITS | Encounter Summary ---
Author Organization [facility] Address [address] [place] [address] Care Team Providers Care Gender Studies Professor Name Role Phone Unavailable Primary Care Provider Unavailabl e Encounter Details Date Type Department Care Team (Latest Contact Info) Description 03/24/2001 Outpatient Historical HIS [facility] Jaylen Pitt MD [address] [place] [address] HYPERTENSION NOS (Primary Dx); HYPOTHYROIDISM NOS; Pure hypercholesterolem Social History Tobacco Use Types Packs/Day Years Used Date Smoking Tobacco: Never Assessed Sex and Gender Information Value Date Recorded Sex Assigned at Not on file Legal Sex 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
--- OUTSIDE RECORDS SUMMARY | 2024-10-29 15:48 | XMS_ITS | Clinical Summary ---
Author Organization [facility] [place] Address [address] [place] [address] Phone Care Team Providers Care Tool Maker Apprentice Name Role Phone Unavailable Primary Care Provider Unavailabl e Allergies No known active allergies Medications albuterol HFA 90 mcg inhaler Take 2 Puffs by inhalation every 6 hours as needed for Shortness of Breath. Active azelastine (ASTELIN) 137 mcg/actuation nasal spray Administer 2 Sprays in each nostril 2 times daily. Active lisinopril (PRINIVIL) 40 mg tablet Take 40 mg by mouth daily. Active lovastatin (MEVACOR) 40 mg tablet Take 40 mg by mouth daily with supper. 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 Active modafinil (PROVIGIL) 200 mg Tablet Take 400 mg by mouth daily. Active pantoprazole (PROTONIX) 40 mg Tablet, Delayed Release (E.C.) Take 40 mg by mouth daily. Active glatiramer 40 mg/mL Syringe Inject by subcutaneous injection Inject Three times weekly . Active hydrOXYzine pamoate (VISTARIL) 50 mg capsule Take 50 mg by mouth 3 times daily as needed for Itching. Active mirtazapine (REMERON) 15 mg tablet Take 15 mg by mouth daily at bedtime. Active rOPINIRole (REQUIP) 0.5 mg tablet Take 0.5 mg by mouth 3 times daily. Active amLODIPine (NORVASC) 10 mg tablet Take 10 mg by mouth daily. Active metoprolol tartrate (LOPRESSOR) 50 mg tablet Take 50 mg by mouth daily. Active hydroCHLOROthia zide 25 mg tablet Take 25 mg by mouth daily. Active levothyroxine (SYNTHROID) 88 mcg tablet Take 88 mcg by mouth daily. 0 Active cloNIDine HCL (CATAPRES) 0.1 mg tablet Take 0.1 mg by mouth 2 times daily. 0 Active buPROPion HCL (WELLBUTRIN XL) 300 mg Extended Release 24 hour tablet Take 300 mg by mouth daily. 0 Active aspirin (ANA CHEWABLE) 81 mg Tablet, Chewable Take 81 mg by mouth daily. Active Biotin 300 mcg Tablet Take by mouth. Activ e melatonin 1 mg Tablet Take by mouth daily at bedtime. Active Active Problems Problem Noted Date Diagnosed [...] kyra or - [place] partial [place] [facility] [place] 04/21/2020 Overview (04/21/2020): Mar 27, 2018 [...] Dysphagia, pharyngoesophageal phase 04/21/2020 Primary hyperparathyroidism 10/03/2018 Family History Medical History Relation Name Comments Cancer Brother Breast Cancer Mother Relation Name Status Comments Brother Mother Social History Tobacco Use Types Packs/Day Years Used Date Smoking Tobacco: Former Smokeless Tobacco: Never Alcohol Use Standard Drinks/Week Comments Not Currently 0 (1 standard drink = 0.6 oz pur e alcohol) Sex and Gender Information Value Date Recorded Sex Assigned at Not on file 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 Gender Identity Not on file Sexual Orientation Not on file Last Filed Vital Signs Vital Sign Reading Time Taken Comments Blood Pressure 110/42 06/09/2020 11:09 AM CDT Pulse 51 06/09/2020 11:09 AM CDT Temperature 36 C (96.8 F) 05/25/2020 4:10 PM CDT Respiratory Rate 18 05/25/2020 4:10 PM CDT Oxygen Saturation 98% 06/09/2020 11:09 AM CDT Inhaled Oxygen Concentration - - Weight 87.8 kg (193 lb 9.6 oz) 06/09/2020 11:09 AM CDT Height 180.3 cm (5' 11 ) 06/09/2020 11:09 AM CDT Body Mass Index 27 06/09/2020 11:09 AM CDT Plan of Treatment Health Maintenance Due Date Last Done Comments ZOSTER VACCINE (1 of 2) 12/14/1995 RSV VACCINE (60+ or ) (1 - 1-dose 75+ series) 2020 DTAP/TDAP/TD VACCINES (2 - T d or Tdap) 01/14/2023 01/14/2013 INFLUENZA VACCINE (#1) 2024 , 11/27/2019, 12/11/2016 PNEUMOCOCCAL VACCINE 50+ YEARS Completed 07/11/2015 , 08/18/2014 Medical Devices Implanted Type Area Frontend Engineer Device Identifier Shelf Expiration Date Model / Serial / Lot Clip Ligating [facility] ([facility] [id number] - [facility] - [id number] Implanted:Qty: 1 on 05/25/2020 by Zainab Duke MD at [facility] Clip N/A: Neck TELEFLEX- [employer] [id number] 08/30/2024 [id number] / / [id number] Clip Ligating Horizon Red [id number] - Csc - [id number] Implanted:Qty: 1 on 05/25/2020 by Zainab Duke MD at [facility] Clip N/A: Neck [employer] [id number] 11/01/2024 [id number] / / [id number] Insurance MEDICARE PART A HOSPITAL ONLY [facility] [employer] Advance Directives For more information, please contact: [phone] * Full Code (Latest Code Status on File) Date Activated Date Inactivated Comments 05/25/2020 2:04 PM 05/25/2020 8:38 PM
--- OUTSIDE RECORDS SUMMARY | 2024-10-29 15:48 | XMS_ITS | Encounter Summary ---
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
--- OUTSIDE RECORDS SUMMARY | 2024-10-29 15:48 | XMS_ITS | Encounter Summary ---
Author Organization [facility] Address [address] [place] [address] Care Team Providers Care Paper Final Inspector Name Role Phone Unavailable Primary Care Provider Unavailabl e Encounter Details Date Type Department Care Team (Latest Contact Info) Description 09/11/2001 Outpatient Historical HIS [facility] Jaylen Pitt MD [address] [place] [address] DYSMETABOLIC SYNDROME X (Primary Dx); HYPOTHYROIDISM NOS Social History Tobacco Use Types Packs/Day Years Used Date Smoking Tobacco: Never Assessed Sex and Gender Information Value Date Recorded Sex Assigned at Not on file Legal 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
--- OUTSIDE RECORDS SUMMARY | 2024-10-29 15:48 | XMS_ITS | Encounter Summary ---
Author Organization [facility] Address [address] [place] [address] Care Team Providers Care Gynecology Teacher Name Role Phone Unavailable Primary Care Provider Unavailabl e Encounter Details Date Type Department Care Team (Latest Contact Info) Description 09/17/2002 Outpatient Historical HIS [facility] Jaylen Pitt MD [address] [place] [address] HYPERLIPIDEMIA NEC/NOS (Primary Dx); DYSMETABOLIC SYNDROME X; DERMATOPHYTOSIS OF BODY Social History Tobacco Use Types Packs/Day Years Used Date Smoking Tobacco: Never Assessed Sex and Gender Information Value Date Recorded Sex Assigned at Not on file 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
--- OUTSIDE RECORDS SUMMARY | 2024-10-29 15:48 | XMS_ITS | Encounter Summary ---
Author Organization [facility] Address [address] [place] [address] Care Team Providers Care Summer Clerk Name Role Phone Unavailable Primary Care Provider Unavailabl e Encounter Details Date Type Department Care Team (Latest Contact Info) Description 07/31/2001 Outpatient Historical HIS [facility] Jaylen Pitt MD [address] [place] [address] HYPERTENSION NOS (Primary Dx); HYPOTHYROIDISM NOS; SCREENING MAL NEOP-PROSTATE; SCREENING-LIPOID DISORDERS Social History Tobacco Use Types Packs/Day Years Used Date Smoking Tobacco: Never Assessed Sex and Gender Information Value Date Recorded Sex Assigned at Not on file 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
--- OUTSIDE RECORDS SUMMARY | 2024-10-29 15:48 | XMS_ITS | Encounter Summary ---
Author Organization [facility] Address [address] [place] [address] Care Team Providers Care Tracer Bullet Section Supervisor Name Role Phone Unavailable Primary Care Provider Unavailabl e Encounter Details Date Type Department Care Team (Latest Contact Info) Description 02/06/2002 Outpatient Historical HIS [facility] Jaylen Pitt MD [address] [place] [address] Pure hypercholesterolem (Primary Dx); HYPERTENSION NOS; HYPOTHYROIDISM NOS Social History Tobacco Use Types Packs/Day Years Used Date Smoking Tobacco: Never Assessed Sex and Gender Information Value Date Recorded Sex Assigned at Not on file Legal Sex Male 5: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
--- OUTSIDE RECORDS SUMMARY | 2024-10-29 15:48 | XMS_ITS | Clinical Summary ---
Author Organization [facility] Address [address] [place] [address] Phone Care Team Providers Care Inserting Machine Operator Name Role Phone Unavailable Primary Care Provider Unavailabl e Allergies No known active allergies Medications albuterol sulfate 90 mcg/Actuation inhaler Take 2 Puffs by inhalation every 6 hours as needed for Shortness of Breath. 9 Active aspirin (ANA CHEWABLE) 81 mg Tablet, Chewable Take 81 mg by mouth daily. 1 Active cloNIDine HCL (CATAPRES) 0.1 mg tablet Take 0.1 mg by mouth 2 times daily. 0 Active hydroCHLOROthia zide 25 mg tablet Take 25 mg by mouth daily. 9 Active metoprolol tartrate (LOPRESSOR) 50 mg tablet Take 50 mg by mouth daily. 9 Active levothyroxine 88 mcg tablet Take 88 mcg by mouth daily. 0 Active Biotin 300 mcg Tablet Take by mouth. 1 Active glatiramer 40 mg/mL Syringe Inject by subcutaneous injection Inject Three times weekly . 9 Active lovastatin (MEVACOR) 40 mg tablet Take 40 mg by mouth daily with supper. 9 Active azelastine (ASTELIN) 137 mcg/actuation nasal spray Administer 2 Sprays in each nostril 2 times daily. 9 Active pantoprazole (PROTONIX) 40 mg Tablet, Delayed Release (E.C.) Take 40 mg by mouth daily. 9 Active levothyroxine 88 mcg tablet Take 88 mcg by mouth daily cable machine operator. 9 Active mirtazapine (REMERON) 15 mg tablet Take 15 mg by mouth daily at bedtime. 9 Active modafiniL (PROVIGIL) 200 mg Tablet Take 400 mg by mouth daily. 9 Active hydrOXYzine pamoate (VISTARIL) 50 mg capsule Take 50 mg by mouth 3 times daily as needed for Itching. 9 Active rOPINIRole (REQUIP) 0.5 mg tablet Take 0.5 mg by mouth 3 times daily. 9 Active buPROPion HCL (WELLBUTRIN XL) 300 mg Extended Release 24 hour tablet Take 300 mg by mouth daily. 0 Active amLODIPine (NORVASC) 10 mg tablet Take 10 mg by mouth daily. 9 Active melatonin 1 mg Tablet Take by mouth daily at bedtime. 1 Active lisinopriL (PRINIVIL) 40 mg tablet Take 40 mg by mouth daily. 9 Active Active Problems Problem Noted Date Diagnosed Date Essential hypertension 04/21/2020 Cervical spinal stenosis - s/p ACDP 12/2019 at [facility] 04/21/2020 Overview (07/01/2020): Nov 06, 2019 Entered By: BABITA BUTLER Comment: Referred to Neurosurgery 11/2019, due to cord impingement on MRI. 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 Gender Identity Not on file Sexual Orientation Not on file Last Filed Vital Signs Vital Sign Reading Time Taken Comments Blood Pressure 110/42 06/09/2020 11:09 AM CDT Pulse 51 06/09/2020 11:09 AM CDT Temperature 36 C (96.8 F) 05/25/2020 4:10 PM CDT Respiratory Rate 18 05/25/2020 4:10 PM CDT Oxygen Saturation - - Inhaled Oxygen Concentration - - Weight 87.8 kg (193 lb 9.6 oz) 06/09/2020 11:09 AM CDT Height 180.3 cm (5' 11 ) 06/09/2020 11:09 AM CDT Body Mass Index 27 06/09/2020 11:09 AM CDT Plan of Treatment Health Maintenance Due Date Last Done Comments DTAP/TDAP/TD VACCINES (1 - Tdap) 1964 PNEUMOCOCCAL VACCINE 50+ YEARS (1 of 1 - PCV) 12/13/18 96 ZOSTER VACCINE (1 of 2) 12/14/1995 RSV VACCINE (60+ or ) (1 - 1-dose 75+ series) 2020 INFLUENZA VACCINE (#1) 2024 Medical Devices Implanted Type Area Billboard Erector Device Identifier Shelf Expiration Date Model / Serial / Lot Clip Ligating Horizon Med Ti [id number] - [facility] - [id number] Implanted:Qty: 1 on 05/25/2020 by Zainab Duke MD Clip N/A: Neck TELEFLEX- [employer] [id number] 08/30/2024 / / [id number] Clip Ligating Horizon Red [id number] - [facility] - [id number] Implanted:Qty: 1 on 05/25/2020 by Zainab Duke MD Clip N/A: Neck [employer] [id number] 11/01/2024 / / [id number] Insurance * Guarantor: OLD 2020 [facility] G THRU I (C) Account Type Relation to Patient Date of Phone Billing Address Corporate Other DEFAULT ADDRESS [address] [employer]
--- OUTSIDE RECORDS SUMMARY | 2024-10-29 15:48 | XMS_ITS | Patient Health Record ---
Author Organization [facility], [facility] Address [address] [facility] [place] [address] Care Team Providers Care Money Position Officer Name Role Phone [facility] Marcos MAYO Primary Care Provider Un available SANCHO CRAFT Unavailable [phone] [place] Un[place] Unavailable Russ Looney Unavailable [phone] Allergies No Known Allergies Results Component Value Reference Range Notes PSA-Diagnostic Reviewed date:04/06/2024 01:23:08 PM Interpretation: Performing Lab: Notes/Report: Urinalysis, Routine Reviewed date:12/12/2023 10:52:08 AM Interpretation: Performing Lab: Notes/Report: Urine-Color yellow Appearance clear Glucose - Bilirubin - Ketones - Specific [place] 1.010 Occult Blood - pH 6.0 Urine Protein - Urobilinogen,Semi-Qn - Nitrite, Urine - WBC Esterase - Urinalysis Gross Exam - Reason For Referral No Information Medications Medication SIG (Take, Route, Frequency, Duration) Notes Start Date End Date Status buPROPion HCl ER (XL) 300 MG 1 tablet in the morning Orally Once a day Active Primidone 50 MG 1 tablet Orally Once a day Active Edoxaban Tosylate 30 MG as directed Orally Active Ipratropium Riley 0.03 % 2 sprays in e ach nostril Nasally Twice a day Active Pantoprazole Sodium 40 MG 1 tablet Orall y Once a day Active hydroCHLOROthiazide 25 MG 1 tablet in th e morning Orally Once a day Active Modafinil 200 MG 1 tablet in the morn ing Orally Once a day Active hydrOXYzine Pamoate 50 MG 1 capsule at b edtime as needed Orally Once a day Active rOPINIRole HCl 2 MG 1 tablet 1 to 3 hour s before bedtime Orally Once a day Active Lovastatin 40 MG 1 tablet with the evening meal Orally Once a day Active dilTIAZem HCl 120 MG as directed Orally Active Mirtazapine 45 MG 1 tablet at bedtime Orally Once a day Active Amantadine HCl 100 MG 1 capsule Orally O nce a day Active Cyanocobalamin 1000 MCG 1 tablet Orally Once a day Active Lisinopril 40 MG 1 tablet Orally Once a day Active Tamsulosin HCl 0.4 MG 1 capsule Orally O nce a day Active Levothyroxine Sodium 88 MCG 1 tablet in the morning on an empty stomach Orally Once a day Active cloNIDine HCl 0.2 MG 1 tablet Orally Onc e a day Active Social History Tobacco Use: Social History Observation Description Date Details (start date - stop date) Former Smoker NA - NA Tobacco Control (Standard) Question Answer Notes Tobacco use: Former smoker How long has it been since you last smoked? Grea ter than 10 years Problems Problem Type SNOMED Code ICD Code Onset Dates Problem Status W/U Status Risk Notes Problem Raised prostate specific antigen (250937753) Rising PSA following treatment for malignant neoplasm of prostate (R97.21) Active confirmed Problem Chronic kidney disease (599794977) Chronic kidney disease (N18.9) Active confirmed Problem History of malignant neoplasm of prostate (310544305) History of prostate cancer (Z85.46) Active confirmed Problem Complex renal cyst (199150660) Complex renal cyst (N28.1) Active confirmed Problem History of radiation exposure (770550073) S/P radiation therapy (Z92.3) Active confirmed Problem Malignant tumor of prostate (153803429) Prostate cancer (C61) Active confirmed Vital Signs Heart Rate 57 /min 12/12/2023 Blood pressure diastolic 64 mm Hg 12/12/2023 Height-cm 185.42 cm 05/11/2024 Weight-kg 92.99 kg 05/11/2024 Height 73 in 05/11/2024 Blood pressure systolic 151 mm Hg 12/12/2023 Weight 205 lbs 05/11/2024 BMI 27.04 kg/m2 05/11/2024 Encounters Encounter Location Date Provider Diagnosis [facility], [facility] [address] [place] [address] 12/12/2023 Russ Looney Complex renal cyst N28.1 ; Chronic kidney disease N18.9 ; Rising PSA following treatment for malignant neoplasm of prostate R97.21 ; History of urinary tract infection Z87.440 and History of prostate cancer Z85.46 [employer] [address] [facility] [place] [address] 05/11/2024 SANCHO CRAFT Complex renal cyst N28.1 ; Rising PSA following treatment for malignant neoplasm of prostate R97.21 ; Chronic kidney disease N18.9 ; History of urinary tract infection Z87.440 and History of prostate cancer Z85.[address] [employer] [address] [facility] [place] [address] 09/15/2024 SANCHO CRAFT Prostate cancer C61 Assessments Encounter Date Diagnosis (ICD Code) Assessment Notes Treatment Notes Treatment Clinical Notes Section Notes 12/12/2023 Chronic kidney disease (ICD-10 - N18.9) 77-yo male with bilateral renal cysts, h/o prostate cancer with h/o brachytherapy, L complex renal cyst and CKD. Rising PSA. of most recent checks from 2.55 to now 2.9. DIscussed case with Dr. Craft and patient and through shared decision making, we are in agreement with continuing to monitor. If PSA continues to rise, will need to consider moving forward with PSMA and/or consideration of starting ADT. At this time, patient will return care in 4 months with new PSA and symptom reassessment. UA today is clear. For now, and through shared decision making we are in agreement with no further workup or intervention at this time with care plan, aside from what was mentioned. Vitals checked. History reviewed. Exam as mentioned above. Patient has no other voiced concerns or questions. Patient will call back or return care sooner if further issues/questions. All questions that were asked, were answered. Patient satisfied with plan. I saw this patient today following the plan of care established by Dr. Craft. Supervision in the clinic, during the encounter was performed by the Doctor. 12/12/2023 Complex renal cyst (ICD-10 - N28.1) 77-yo male with bilateral renal cysts, h/o prostate cancer with h/o brachytherapy, L complex renal cyst and CKD. Rising PSA. of most recent checks from 2.55 to now 2.9. DIscussed case with Dr. Craft and patient and through shared decision making, we are in agreement with continuing to monitor. If PSA continues to rise, will need to consider moving forward with PSMA and/or consideration of starting ADT. At this time, patient will return care in 4 months with new PSA and symptom reassessment. UA today is clear. For now, and through shared decision making we are in agreement with no further workup or intervention at this time with care plan, aside from what was mentioned. Vitals checked. History reviewed. Exam as mentioned above. Patient has no other voiced concerns or questions. Patient will call back or return care sooner if further issues/questions. All questions that were asked, were answered. Patient satisfied with plan. I saw this patient today following the plan of care established by Dr. Craft. Supervision in the clinic, during the encounter was performed by the Doctor. 05/11/2024 Rising PSA following treatment for malignant neoplasm of prostate (ICD-10 - R97.21) 78-yo male with bilateral renal cysts, h/o prostate cancer with h/o brachytherapy, L complex renal cyst and CKD. PSA of 2.7 on 04/06/24 is stable. Discussed hormonal blockade vs PSMA scan vs surveillance. Patient doing well and agrees to surveillance. He will return in 6m with PSA, UA. Return sooner with any concerns. Plan: -RTC in 6m with PSA, UA I, Damaris Ugalde, am scribing for, and in the presence of, Dr. Craft. I, Dr. Sancho Craft, personally performed the services prescribed in this documentation, as scribed by Diane Ulloa, in my presence, and it is both accurate and complete. 05/11/2024 Complex renal cyst (ICD-10 - N28.1) 78-yo male with bilateral renal cysts, h/o prostate cancer with h/o brachytherapy, L complex renal cyst and CKD. PSA of 2.7 on 04/06/24 is stable. Discussed hormonal blockade vs PSMA scan vs surveillance. Patient doing well and agrees to surveillance. He will return in 6m with PSA, UA. Return sooner with any concerns. Plan: -RTC in 6m with PSA, UA I, Damaris Ugalde am scribing for, and in the presence of, Dr. Craft. I, Dr. Sancho Craft, personally performed the services prescribed in this documentation, as scribed by Diane Ulloa, in my presence, and it is both accurate and complete. 09/15/2024 Prostate cancer (ICD-10 - C61) 05/11/2024 Chronic kidney disease (ICD-10 - N18.9) 78-yo male with bilateral renal cysts, h/o prostate cancer with h/o brachytherapy, L complex renal cyst and CKD. PSA of 2.7 on 04/06/24 is stable. Discussed hormonal blockade vs PSMA scan vs surveillance. Patient doing well and agrees to surveillance. He will return in 6m with PSA, UA. Return sooner with any concerns. Plan: -RTC in 6m with PSA, UA I, Diane Ulloa, Scribe, am scribing for, and in the presence of, Dr. Craft. I, Dr. Sancho Craft, personally performed the services prescribed in this documentation, as scribed by Diane Ulloa, in my presence, and it is both accurate and complete. 12/12/2023 Rising PSA following treatment for malignant neoplasm of prostate (ICD-10 - R97.21) 77-yo male with bilateral renal cysts, h/o prostate cancer with h/o brachytherapy, L complex renal cyst and CKD. Rising PSA. of most recent checks from 2.55 to now 2.9. DIscussed case with Dr. Craft and patient and through shared decision making, we are in agreement with continuing to monitor. If PSA continues to rise, will need to consider moving forward with PSMA and/or consideration of starting ADT. At this time, patient will return care in 4 months with new PSA and symptom reassessment. UA today is clear. For now, and through shared decision making we are in agreement with no further workup or intervention at this time with care plan, aside from what was mentioned. Vitals checked. History reviewed. Exam as mentioned above. Patient has no other voiced concerns or questions. Patient will call back or return care sooner if further issues/questions. All questions that were asked, were answered. Patient satisfied with plan. I saw this patient today following the plan of care established by Dr. Craft. Supervision in the clinic, during the encounter was performed by the Doctor. 12/12/2023 History of urinary tract infection (ICD-10 - Z87.440) 77-yo male with bilateral renal cysts, h/o prostate cancer with h/o brachytherapy, L complex renal cyst and CKD. Rising PSA. of most recent checks from 2.55 to now 2.9. DIscussed case with Dr. Craft and patient and through shared decision making, we are in agreement with continuing to monitor. If PSA continues to rise, will need to consider moving forward with PSMA and/or consideration of starting ADT. At this time, patient will return care in 4 months with new PSA and symptom reassessment. UA today is clear. For now, and through shared decision making we are in agreement with no further workup or intervention at this time with care plan, aside from what was mentioned. Vitals checked. History reviewed. Exam as mentioned above. Patient has no other voiced concerns or questions. Patient will call back or return care sooner if further issues/questions. All questions that were asked, were answered. Patient satisfied with plan. I saw this patient today following the plan of care established by Dr. Craft. Supervision in the clinic, during the encounter was performed by the Doctor. 05/11/2024 History of urinary tract infection (ICD-10 - Z87.440) 78-yo male with bilateral renal cysts, h/o prostate cancer with h/o brachytherapy, L complex renal cyst and CKD. PSA of 2.7 on 04/06/24 is stable. Discussed hormonal blockade vs PSMA scan vs surveillance. Patient doing well and agrees to surveillance. He will return in 6m with PSA, UA. Return sooner with any concerns. Plan: -RTC in 6m with PSA, UA Diane Burrell Scribe, am scribing for, and in the presence of, Dr. Craft. I, Dr. Sancho Craft, personally performed the services prescribed in this documentation, as scribed by Diane Ulloa, in my presence, and it is both accurate and complete. 05/11/2024 History of prostate cancer (ICD-10 - Z85.46) 78-yo male with bilateral renal cysts, h/o prostate cancer with h/o brachytherapy, L complex renal cyst and CKD. PSA of 2.7 on 04/06/24 is stable. Discussed hormonal blockade vs PSMA scan vs surveillance. Patient doing well and agrees to surveillance. He will return in 6m with PSA, UA. Return sooner with any concerns. Plan: -RTC in 6m with PSA, UA Indra, Diane Ulloa, Scribjignesh, am scribing for, and in the presence of, Dr. Craft. I, Dr. Sancho Craft, personally performed the services prescribed in this documentation, as scribed by Diane Ulloa, in my presence, and it is both accurate and complete. 12/12/2023 History of prostate cancer (ICD-10 - Z85.46) 77-yo male with bilateral renal cysts, h/o prostate cancer with h/o brachytherapy, L complex renal cyst and CKD. Rising PSA. of most recent checks from 2.55 to now 2.9. DIscussed case with Dr. Craft and patient and through shared decision making, we are in agreement with continuing to monitor. If PSA continues to rise, will need to consider moving forward with PSMA and/or consideration of starting ADT. At this time, patient will return care in 4 months with new PSA and symptom reassessment. UA today is clear. For now, and through shared decision making we are in agreement with no further workup or intervention at this time with care plan, aside from what was mentioned. Vitals checked. History reviewed. Exam as mentioned above. Patient has no other voiced concerns or questions. Patient will call back or return care sooner if further issues/questions. All questions that were asked, were answered. Patient satisfied with plan. I saw this patient today following the plan of care established by Dr. Craft. Supervision in the clinic, during the encounter was performed by the Doctor. Plan Of Treatment Pending Test Test Name Order Date PSA, total (cpt 46417) 09/15/2024 MRI : Abdomen with and without Contrast [id number] 06/24/2023 PSA, TOTAL (5363) 04/30/2023 [place]vis [place] contrast [id number] 04/30/19 24 PSA-Diagnostic 08/08/2023 Next Appt Details Provider Name:SANCHO Pelaez, 11/16/2024 01:50:00 PM, [address] [place], [address], Insurance Providers Payer Name Payer Address Payer Phone Subscriber Number Group Number Insured Name Patient Relationship to Insured Coverage Start Date Coverage End Date [employer] [address] [place], [place] [id number] REBA MCALLISTER Self - patient is the insured Medical (General) History Medical History History ICD Code prostate cancer stomack cancer skin cancer heart disease arthritis htn Surgical History Surgery Date(Month/Year) herniated disk parathyroid prostate radiation seeds stomach surgery removed tumor back surgery cyst removed Hospitalization History Reason Date(Month/Year) see above
--- OUTSIDE RECORDS SUMMARY | 2024-10-29 15:48 | XMS_ITS | Encounter Summary ---
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, not otherwise specified Social History Tobacco Use Types Packs/Day Years Used Date Smoking Tobacco: Never Assessed Sex and Gender Information Value Date Recorded Sex Assigned at Not on file Legal Sex Male 11:16 AM EDT Gender Identity Not on file Sexual Orientation Not on file documented as of this encounter Plan of Treatment Upcoming Encounters Date Type Department Care Team (Late st Contact Info) Description 12/14/2024 10:20 AM CDT Office Visit [facility] [address] [place] [address] Carla Valverde MD [address] [place] [address] documented as of this encounter Visit Diagnoses Diagnosis 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
--- OUTSIDE RECORDS SUMMARY | 2024-10-29 15:48 | XMS_ITS | Encounter Summary ---
Author Organization [facility] Address [address] [place] [address] Care Team Providers Care Fiber Heel Piece Shaper Name Role Phone Unavailable Primary Care Provider Unavailabl e Encounter Details Date Type Department Care Team (Latest Contact Info) Description 12/22/2002 Outpatient Historical [facility] Jaylen Pitt MD [address] [place] [address] Skin sensation disturb (Primary Dx); ESOPHAGEAL REFLUX; HYPERTENSION NOS; METABOLISM DISORDER NOS Social History Tobacco Use Types Packs/Day Years Used Date Smoking Tobacco: Never Assessed Sex and Gender Information Value Date Recorded Sex Assigned at Not on file Legal Sex Male 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
--- OUTSIDE RECORDS SUMMARY | 2024-10-29 15:48 | XMS_ITS | Encounter Summary ---
Author Organization [facility] Address [address] [place] [address] Care Team Providers Care Second Hand Paper Machine Name Role Phone Unavailable Primary Care Provider Unavailabl e Encounter Details Date Type Department Care Team (Latest Contact Info) Description 12/01/2001 Outpatient Historical HIS [facility] Jaylen Pitt MD [address] [place] [address] HYPERTENSION NOS (Primary Dx); MALE GENITAL DIS NOS Social History Tobacco Use Types Packs/Day Years Used Date Smoking Tobacco: Never Assessed Sex and Gender Information Value Date Recorded Sex Assigned at Not on file Legal Sex Male 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
--- OUTSIDE RECORDS SUMMARY | 2024-10-29 15:48 | XMS_ITS | Encounter Summary ---
Author Organization [facility] Address [address] [place] [address] Care Team Providers Care Farm Equipment Mechanic Apprentice Name Role Phone Unavailable Primary Care Provider Unavailabl e Encounter Details Date Type Department Care Team (Latest Contact Info) Description 02/18/2003 Outpatient Historical HIS [facility] Jaylen Pitt MD [address] [place] [address] HYPOTHYROIDISM NOS (Primary Dx); Pure hypercholesterolem Social History Tobacco Use Types Packs/Day Years Used Date Smoking Tobacco: Never Assessed Sex and Gender Information Value Date Recorded Sex Assigned at Not on file Legal Sex Male 5:14 AM PHARMACIST CRITICAL CARE Gender Identity Not on file Sexual Orientation Not on file documented as of this encounter Plan of Treatment Not on file documented as of this encounter Visit Diagnoses Diagnosis Unspecified hypothyroidism- Primary Pure hypercholesterolem Pure hypercholesterolemia documented in this encounter
--- OUTSIDE RECORDS SUMMARY | 2024-10-29 15:48 | XMS_ITS | Encounter Summary ---
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
--- OUTSIDE RECORDS SUMMARY | 2024-10-29 15:48 | XMS_ITS | Encounter Summary ---
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
--- OUTSIDE RECORDS SUMMARY | 2024-10-29 15:48 | XMS_ITS | Encounter Summary ---
Author Organization [facility] Address [address] [place] [address] Care Team Providers Care Varnish Cooker Name Role Phone Unavailable Primary Care Provider Unavailabl e Encounter Details Date Type Department Care Team (Latest Contact Info) Description 06/30/2003 Outpatient Historical HIS [facility] Jaylen Pitt MD [address] [place] [address] HYPERTENSION NOS (Primary Dx); ALLERGIC RHINITIS NOS Social History Tobacco Use Types Packs/Day Years Used Date Smoking Tobacco: Never Assessed Sex and Gender Information Value Date Recorded Sex Assigned at Not on file Legal Sex Male 5: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
--- OUTSIDE RECORDS SUMMARY | 2024-10-29 15:48 | XMS_ITS | Encounter Summary ---
Author Organization [facility] Address [address] [place] [address] Care Team Providers Care Payroll Representative Name Role Phone Unavailable Primary Care Provider Unavailabl e Encounter Details Date Type Department Care Team (Latest Contact Info) Description 03/22/2000 Outpatient Historical HIS [facility] Ebenezer Sellers NO ADDRESS ON FILE Headache(784.0) (Primary Dx); Unspecified essential hypertension Social History Tobacco Use Types Packs/Day Years Used Date Smoking Tobacco: Never Assessed Sex and Gender Information Value Date Recorded Sex Assigned at Not on file Legal Sex Male 5:14 AM NEGATIVE STRIPPER Gender Identity Not on file Sexual Orientation Not on file documented as of this encounter Plan of Treatment Not on file documented as of this encounter Visit Diagnoses Diagnosis Headache(784.0)- Primary Headache Unspecified essential hypertension documented in this encounter
--- OUTSIDE RECORDS SUMMARY | 2024-10-29 15:48 | XMS_ITS | Patient Health Record ---
Author Organization [facility] Address [address] [place] [address] Care Team Providers Care Harvesting Supervisor Name Role Phone [facility] Marcos MAYO Primary Care Provider Un available Leeroy Kellogg Unavailable [phone] [place], [place] Unavailable Unavailable Allergies Allergen (clinical drug ingredient) Drug/Non Drug Allergy documented on EMR Reaction Allergy Type Onset Date Status No Known Drug Allergy Unknown Drug Allergy Active Reason For Referral No Information Medications Medication SIG (Take, Route, Frequency, Duration) Notes Start Date End Date Status Daily Fiber 51.7 % Powder as directed Orally Active dilTIAZem HCl 120 MG Tablet as directed Orally Active cloNIDine 0.2 MG/24HR Patch Weekly 1 patch to skin Transdermal Active rOPINIRole HCl 2 MG Tablet 1 tab Orally twice a day Active Edoxaban Tosylate 30 MG Tablet as directed Orally Active Lovastatin 40 MG Tablet 1 tablet with th e evening meal Orally Once a day Active Vitamin B12 1000 MCG Tablet Extended Release 1 tablet Orally Once a day Active Mirtazapine 45 MG Tablet 1 tablet at bed time Orally Once a day Active Stool Softener 100 MG Capsule 2 capsules Orally Once a day Active Levothyroxine Sodium 88 MCG Tablet 1 tablet in the morning on an empty stomach Orally Once a day Active Mucus Relief 600 MG Tablet Extended Release 12 Hour 1 tablet as needed Orally every 12 hrs Active Primidone 50 MG Tablet 1 tablet Orally O nce a day Active Cyanocobalamin 1000 MCG Tablet 1 tablet Orally Once a day Active Tamsulosin HCl 0.4 MG Capsule 1 capsule Orally Once a day Active buPROPion HCl ER (XL) 300 MG Tablet Extended Release 24 Hour 1 tablet in the morning Orally Once a day Active hydrOXYzine HCl 50 MG Tablet 1 tablet as needed Orally Once a day Active hydroCHLOROthiazide 25 MG Tablet 1 tablet in the morning Orally Once a day Active diphenhydrAMINE HCl 25 MG Capsule 1 capsule at bedtime as needed Orally Once a day Active Cannabinoids Oral 1-2 gummies oral as directed Active Pantoprazole Sodium 40 MG Tablet Delayed Release 1 tablet Orally Once a day Active Vitamin D3 50 MCG (1999 [place]) Capsule 1 capsule Orally Once a day Active Modafinil 200 MG Tablet 1 tablet in the morning Orally Once a day Active Lisinopril 40 MG Tablet 1 tablet Orally Once a day Active Amantadine HCl 100 MG Capsule 1 capsule Orally Once a day Active Social History Tobacco Use: Social History Observation Description Date Details (start date - stop date) Former Smoker NA - NA Social History Drugs/Alcohol: Social Info Question Answer Notes Alcohol Screen (Audit-C) Did you have a drink containing alcohol in the past year? No Points 0 Interpretation Negative Tobacco Use: Social Info Question Answer Notes xTobacco Use/Smoking Are you a former smoker Problems Problem Type SNOMED Code ICD Code Onset Dates Problem Status W/U Status Risk Notes Problem Constipation (52275397) Constipation, unspecified constipation type (K59.00) Active confirmed Problem History of polyp of colon (situation) (700384109) History of colon polyps (Z86.010) Active confirmed Problem Gastroesophageal reflux disease (363837975) Gastroesophageal reflux disease, unspecified whether esophagitis present (K21.9) Active confirmed Problem Multiple sclerosis (88938975) Multiple sclerosis (340) 2007 Active confirmed [facility] [place]-98 5911- Problem Hypercholesterolemia (27449154) Hypercholesterolemia (272.0) 2005 Active confirmed [facility] [place]-98 5911- Problem Loss of hair (332254081) Loss of hair (704.00) 2007 Active confirmed [place]-98 [id number]- Problem Common wart (64903117) Common wart (078.19) 2005 Active confirmed [facility] [place]-98 5911- Problem Essential hypertension (57759819) Essential hypertension (401.1) 2005 Active confirmed [facility] [place]-98 5911- Problem Thoracic back pain (240663796) Upper back pain (724.5) 2007 Active confirmed [facility] [place]-98 5911- Problem Rash (736914987) Rash (782.1) 2007 Problem resolved confirmed [place]-98 [id number]- Problem Neck pain (09108687) Neck pain (723.1) 2006 Problem resolved confirmed [place]-98 5911- Problem Vaccine-other combinations (V06.8) 2007 Problem resolved confirmed [place]-98 [id number]- Problem Otalgia (337077441) Otalgia (388.71) 01/03 Problem resolved confirmed [place]-98 5911- Problem Shortness of breath (202526953) Shortness of breath (786.09) 2006 Problem resolved confirmed [place]-98 5911- Problem Shoulder pain (32750322) Shoulder pain (719.41) 2006 Problem resolved confirmed [place]-98 5911- Problem Sensory disorder of smell and/or taste (9590323316602) Abnormal taste (781.1) 2007 Problem resolved confirmed [place]-98 5911- Problem 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) Atypical mole (238.2) 2004 Problem resolved confirmed [place]-98 5911- Problem Swelling of limb (78280454) Hand swelling (729.81) 2007 Problem resolved confirmed [place]-98 5911- Problem Influenza (2842572) Influenza (487.8) 2006 Problem resolved confirmed [place]-98 5911- Problem Insomnia (945662054) Insomnia (307.41) 2007 Problem resolved confirmed [place]-98 5911- Problem Benign essential hypertension (9363628) Borderline hypertension (401.1) 2003 Problem resolved confirmed [place]-98 5911- Problem Stiff neck (356136070) stiff neck (781.6) 2004 Problem resolved confirmed [place]-98 5911- Problem Needs influenza immunization (997059466) Vaccination against other viral diseases, Influenza (V04.81) 2006 Problem resolved confirmed [place]-98 5911- Problem Impacted cerumen (86877287) Cerumen impaction (380.4) 2007 Problem resolved confirmed [place]-98 [id number]- Problem Paresthesia (29673794) Paresthesia (782.0) 2006 Problem resolved confirmed [place]-98 [id number]- Problem Acute sinusitis (26592723) Acute sinusitis (461.8) 2006 Problem resolved confirmed [facility] [place]-98 5911- Problem Excessive sweating (61083686) Excessive sweating (780.8) 2004 Problem resolved confirmed [facility] [place]-98 5911- Plan Of Treatment No Information Insurance Providers Payer Name Payer Address Payer Phone Subscriber Number Group Number Insured Name Patient Relationship to Insured Coverage Start Date Coverage End Date [employer] [address] [place] [phone] [id number] Elpidio Lopez Self - patient is the insured Medical (General) History Medical History History ICD Code heart disease arthritis stomach cancer prostate cancer skin cancer hypertension hemorrhoids anticoagulation therapy cataracts colon polyps depression hypothyroidism sleep apnea MS Surgical History Surgery Date(Month/Year) tumor removed from stomach 2014 Hospitalization History Reason Date(Month/Year) see surgery list covid and afib MS diagnosis
--- OUTSIDE RECORDS SUMMARY | 2024-10-29 15:48 | XMS_ITS | Encounter Summary ---
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
--- OUTSIDE RECORDS SUMMARY | 2024-10-29 15:48 | XMS_ITS | Encounter Summary ---
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
[2024-10-29 15:54] VITALS: BP 105/61; PULSE 53; RESP 18; TEMP 36.9; O2SAT 99; BMI 27.4
--- NOTE | 2024-10-29 15:56 | ECG_ITS ---
[facility] Test Date: 2024-10-29 Pat Name: Elpidio Lopez Department: Room: Gender: Male Note Teller: : 1945 Requested By: Cedric Taylor Order Number: [id number] Christopher MD: Lyle Barber M.D. Measurements Intervals [place] Rate: 52 P: -62 [place]: 136 QRS: 63 QRSD: 95 T: 70 QT: 431 QTc: 401 Interpretive Statements JUNCTIONAL BRADYCARDIA Compared to ECG 10/25/2023 10:49:31 Sinus bradycardia no longer present First degree AV block no longer present Electronically Signed On 10-30-2024 22:41:25 CDT by Lyle Barber M.D. [id number]
[2024-10-29 19:01] LABS: Hematocrit 46.8 % (37-53); Hemoglobin 14.60 g/dL (11.27-16.99); Mean Corpuscular HGB Conc 31.2 g/dL (30-55); Mean Corpuscular Hemoglobin 28.7 pg (27-33); Mean Corpuscular Volume 92.1 fl (82-101); Nucleated Red Blood Cells % 0 %; Platelet Count 174 10^3/cmm (157-399); Red Blood Count 5.08 10^6/uL (3.85-5.65); White Blood Count 10.06 10^3/uL (3.29-11.43)
--- NOTE | 2024-10-29 19:13 | XRR_ITS ---
PROCEDURE INFORMATION: Exam: XR Chest Exam date and time: 10/29/2024 7:13 PM Age: 78 years old Clinical indication: Pain; Chest pressure; Additional info: Chest pain TECHNIQUE: Imaging protocol: Radiologic exam of the chest. Views: 1 view. COMPARISON: CT angio chest PE protcl [id number] 03/11/2020 10:13 AM FINDINGS: Lungs: Unremarkable. No consolidation. Pleural spaces: Unremarkable. No pleural effusion. No pneumothorax. Heart/Mediastinum: Aortic arch calcifications. No cardiomegaly. Bones/joints: Unremarkable. XR/XR chest 1V portable [id number] IMPRESSION: No acute finding.
[2024-10-29 19:16] LABS: Alanine Aminotransferase 16 U/L (0-41); Albumin Level 4.2 g/dL (3.5-5.2); Alkaline Phosphatase 102 U/L (40-130); Anion Gap 17.9 (5-19); Aspartate Amino Transferase 11 U/L (0-40); Blood Urea Nitrogen 22 mg/dL (8-23); Calcium 9.8 mg/dL (8.5-10.5); Carbon Dioxide 22 mmol/L (22-29); Chloride 100 mmol/L (98-107); Creatinine Clr Calc Pharmacy 36.6757; Globulin 3.4 g/dL (1.3-4.6); Glucose 80 mg/dL (65-115); Osmolality Calculated 284 mOsm/kg (285-295); Potassium 3.9 mmol/L (3.5-5.1); Sodium 136 mmol/L (136-145); Total Protein 7.6 g/dL (6.6-8.7)
[2024-10-29 19:17] LABS: Troponin(5th) Baseline 32 ng/L (0-15)
[2024-10-29 19:19] VITALS: BP 157/54; PULSE 49; RESP 17; O2SAT 100
--- NOTE | 2024-10-29 19:22 | W.ED.CHESTPA ---
HPI - Chest Pain General: Chief Complaint: Chest Pain Stated Complaint: CP SOB head ache weak Time Seen by Provider: 10/29/24 19:07 History of Present Illness: 78-year-old male with a history of MS, chronic kidney disease, hypothyroidism, hypertension, hyperlipidemia and depression who presents emergency room with chest pain. Says over the last few days when he wakes up (he wakes up about 3:30 in the afternoon, his says because of his MS), he is been having some pain in his left chest. An ache. It goes away eventually. Was a little bit worse today and lasted longer today. He says of note he did mow for about 4 hours a few days ago just before this started. No new cough. He said when he gets up he also feels dizzy and lightheaded. Related Data Home Medications ?Medication ?Instructions ?Recorded ?Confirmed bupropion HCl 300 mg 24 hr tablet, 300 mg PO DAILY 04/17/19 10/23/24 extended release hydroxyzine HCl 50 mg tablet 50 mg PO BEDTIME 04/17/19 10/23/24 levothyroxine 88 mcg capsule 88 mcg PO DAILY 04/17/19 10/23/24 lisinopril 40 mg tablet 40 mg PO DAILY 04/17/19 10/23/24 modafinil 200 mg tablet 200 mg PO DAILY 04/17/19 10/23/24 pantoprazole 40 mg tablet,delayed 40 mg PO DAILY 04/17/19 10/23/24 release lovastatin 40 mg tablet 40 mg PO DAILY 03/11/20 10/23/24 artificial 3 spray mucous membrane Q4H PRN 10/25/21 10/23/24 saliva(carboxymethylcellulose-electrolytes) Dry Mouth spray pump cholecalciferol (vitamin D3) 25 25 mcg PO DAILY 10/25/21 10/23/24 mcg (1,000 unit) tablet (Vitamin D3) cyanocobalamin (vitamin B-12) 250 250 mcg PO DAILY 10/25/21 10/23/24 mcg tablet (Vitamin B-12) mirtazapine 45 mg tablet 45 mg PO BEDTIME 10/25/21 10/23/24 ropinirole 2 mg tablet 2 mg PO BEDTIME 10/25/21 10/23/24 tamsulosin 0.4 mg capsule 0.8 mg PO BEDTIME 10/25/21 10/23/24 edoxaban 30 mg tablet 30 mg PO DAILY 03/22/23 10/23/24 melatonin 5 mg tablet 10 mg PO BEDTIME #0 tabs 09/20/23 10/23/24 gabapentin 300 mg capsule 300 mg PO BID 10/31/23 10/23/24 diclofenac sodium 1 % topical gel 4 g topical QID 09/14/24 10/23/24 (Arthritis Pain (diclofenac)) tizanidine 2 mg capsule 2 mg PO TID PRN 09/14/24 10/23/24 Previous Rx's ?Medication ?Instructions ?Recorded diltiazem HCl 120 mg capsule,24 120 mg PO DAILY #90 caps 01/29/22 hr,extended release hydrochlorothiazide 25 mg tablet 25 mg PO DAILY #90 tabs 03/21/22 clonidine HCl 0.1 mg tablet 0.3 mg (3 x 0.1 mg) PO DIRECTED 04/27/22 #270 tabs amantadine HCl 100 mg tablet 100 mg PO DAILY #90 tabs 03/20/24 Allergies Allergy/AdvReac Type Severity Reaction Status Date / Time No Known Allergies Allergy Verified 10/23/24 09:44 Review of Systems Narrative: Constitutional symptoms: Negative except as documented in HPI. Skin symptoms: Negative except as documented in HPI. Eye symptoms: Negative except as documented in HPI. ENMT symptoms: Negative except as documented in HPI. Respiratory symptoms: Negative except as documented in HPI. Cardiovascular symptoms: Negative except as documented in HPI. Gastrointestinal symptoms: Negative except as documented in HPI. Genitourinary symptoms: Negative except as documented in HPI. Musculoskeletal symptoms: Negative except as documented in HPI. Neurologic symptoms: Negative except as documented in HPI. Psychiatric symptoms: Negative except as documented in HPI. Endocrine symptoms: Negative except as documented in HPI. PFSH ED PFSH: Medical History (Updated 10/29/24 @ 20:22 by Lauren Khalil MD) CKD (chronic kidney disease) Pneumonia due to 2019-nCoV Hypothyroidism Hypertension Hyperlipidemia Multiple sclerosis Depression H/O prostate cancer Gastrointestinal stromal tumor (GIST) of stomach Surgical History History of thyroidectomy H/O neck surgery History of parathyroid surgery H/O resection of stomach Laparoscopic partial resection for gist tumor the patient H/O circumcision H/O esophagogastroduodenoscopy 04/2019 H/O colonoscopy 04/2019: Repeat in 5 years Family History Sister Bleeding disorder Other Cancer Diabetes Heart disease Social History Smoking and tobacco/nicotine status: former use of tobacco/nicotine Alcohol intake: never Substance/Drug Use: never Household members: spouse Marital status: Current occupational status: retired Physical Exam Narrative: EXAM NARRATIVE: General: Alert, no acute distress. Skin: Warm, dry. Head: Normocephalic, atraumatic. Neck: Supple, trachea midline. Eye: Extraocular movements are intact. Ears, nose, mouth and throat: mucosa moist. Cardiovascular: Regular, Normal peripheral perfusion. Respiratory: Lungs are clear to auscultation, respirations are non-labored, breath sounds are equal, Symmetrical chest wall expansion. Gastrointestinal: Soft, Nontender, Non distended Musculoskeletal: Normal ROM, no deformity. Neurological: Alert and oriented, No focal neurological deficit observed. Psychiatric: Cooperative, appropriate mood & affect. Course Vital Signs: Vital signs: Vital Signs Temperature 98.4 F 10/29/24 15:54 Pulse Rate 59 L 10/29/24 21:25 Respiratory Rate 17 10/29/24 21:25 Blood Pressure 175/67 10/29/24 21:25 Pulse Oximetry 100 10/29/24 21:25 Oxygen Delivery Me thod Room Air 10/29/24 21:25 MDM - Chest Pain Medical Decision Making Differential diagnosis for patient with chest pain includes but is not limited to and based on the above HPI, review of systems and physical exam: Pneumonia. unstable angina. angina. Acute coronary syndrome / IA. Pulmonary embolism. Costochondritis / musculoskeletal. Pleurisy. Pericarditis. Esophageal spasm. Pancreatis. Cholecystitis. Orders placed to evaluate differential diagnosis based on the above differential, HPI and physical exam EKG: Time 1544. Rate 52. Sinus bradycardia, No ST-T changes, no ectopy, first-degree AV block, This was reviewed and interpreted by the ER physician at 1550. This is unchanged from EKG done during a previous visit Repeat EKG: Time 1831. Rate 48. Sinus bradycardia, No ST-T changes, no ectopy, first-degree AV block, This was reviewed and interpreted by the ER physician at 1836. No significant changes from EKG done previously today in the emergency room. Chest x-ray: No acute process. No infiltrate. No pneumothorax. This was reviewed and interpreted by myself the emergency room physician. I also reviewed the radiology report. Lab Review: Laboratory results were reviewed and interpreted by myself the emergency room physician. No leukocytosis. No anemia. BUN/creatinine are 22 and 1.9. Patient's baseline creatinine is usually around 1.7. May be some mild dehydration. Initial cardiac markers 30. Second is unchanged. This appears to be his baseline. I reviewed the patient's medical record. Reexamination: Patient has remained chest pain-free while here. Patient remained stable. No increased work of breathing. No altered mental status. No focal motor deficits. Assessment and plan: Noncardiac chest pain Dehydration ? IV fluids in the emergency room. - Discharged home - Discussed plan with patient. Answered any questions. - Evaluation and treatment of this problem were appropriate in the emergency setting. Lab Data 10/29/24 18:36 10/29/24 18:36 Radiology Impressions Chest X-Ray 10/29/24 19:13 IMPRESSION: No acute finding. Laboratory Results WBC 10.06 10^3/uL (3.29-11.43) 10/29/24 18:36 RBC 5.08 10^6/uL (3.85-5.65) 10/29/24 18:36 Hgb 14.60 g/dL (11.27-16.99) 10/29/24 18:36 Hct 46.8 % (37-53) 10/29/24 18:36 MCV 92.1 fl (82-101) 10/29/24 18:36 MCH 28.7 pg (27-33) 10/29/24 18:36 MCHC 31.2 g/dL (30-55) 10/29/24 18:36 RDW 13.5 % (12.1-15.1) 10/29/24 18:36 Plt Count 174 10^3/cmm (157-399) 10/29/24 18:36 MPV 11.6 fL (7.4-10.4) H 10/29/24 18:36 Neut % (Auto) 67.7 % 10/29/24 18:36 Lymph % (Auto) 19.3 % 10/29/24 18:36 Harper % (Auto) 7.1 % 10/29/24 18:36 Eos % (Auto) 3.9 % 10/29/24 18:36 Baso % (Auto) 1.5 % 10/29/24 18:36 Neut # (Auto) 6.82 10^3/uL (1.8-7.7) 10/29/24 18:36 Lymph # (Auto) 1.9 10^3/uL (0.8-4.8) 10/29/24 18:36 Harper # (Auto) 0.7 10^3/uL (0.2-0.9) 10/29/24 18:36 Eos # (Auto) 0.4 10^3/uL (0.0-0.8) 10/29/24 18:36 Baso # (Auto) 0.2 10^3/uL (0.0-0.1) H 10/29/24 18:36 Nucleated RBC % (auto) 0 % 10/29/24 18:36 Nucleated RBCs # 0.0 /100WBC 10/29/24 18:36 Sodium 136 mmol/L (136-145) 10/29/24 18:36 Potassium 3.9 mmol/L (3.5-5.1) 10/29/24 18:36 Chloride 100 mmol/L (98-107) 10/29/24 18:36 Carbon Dioxide 22 mmol/L (22-29) 10/29/24 18:36 Anion Gap 17.9 (5-19) 10/29/24 18:36 BUN 22 mg/dL (8-23) 10/29/24 18:36 Creatinine 1.9 mg/dL (0.7-1.2) H 10/29/24 18:36 GFR Calculation Not Reportable 10/29/24 18:36 Glucose 80 mg/dL (65-115) 10/29/24 18:36 Calculated Osmolality 284 mOsm/kg (285-295) L 10/29/24 18:36 Calcium 9.8 mg/dL (8.5-10.5) 10/29/24 18:36 Total Bilirubin 0.3 mg/dL (0.15-1.2) 10/29/24 18:36 AST 11 U/L (0-40) 10/29/24 18:36 ALT 16 U/L (0-41) 10/29/24 18:36 Alkaline Phosphatase 102 U/L (40-130) 10/29/24 18:36 Troponin T Baseline 32 ng/L (0-15) H 10/29/24 18:36 Troponin T 120 Minute 31.91 ng/L (0-15) H 10/29/24 20:16 Delta Troponin T -0.09 ABS# (0-10) L 10/29/24 20:16 Total Protein 7.6 g/dL (6.6-8.7) 10/29/24 18:36 Albumin 4.2 g/dL (3.5-5.2) 10/29/24 18:36 Globulin 3.4 g/dL (1.3-4.6) 10/29/24 18:36 All radiology interpretation(s) finalized by discharge Discharge Plan Discharge Patient Disposition: Home Clinical Impression: Non-cardiac chest pain, Dehydration, Multiple sclerosis, relapsing-remitting Condition: Stable Prescriptions: No Action bupropion HCl 300 mg tablet extended release 24 hr 300 mg PO DAILY lisinopril 40 mg tablet 40 mg PO DAILY levothyroxine 88 mcg capsule 88 mcg PO DAILY modafinil 200 mg tablet 200 mg PO DAILY hydroxyzine HCl 50 mg tablet 50 mg PO BEDTIME edoxaban 30 mg tablet 30 mg PO DAILY tizanidine 2 mg capsule 2 mg PO TID PRN diclofenac sodium [Arthritis Pain (diclofenac)] 1 % gel 4 g topical QID Rx Instructions: apply to single knee, ankle, foot; for foot includes sole/toes/top of foot clonidine HCl 0.1 mg tablet 0.3 mg PO DIRECTED Qty: 270 1RF Rx Instructions: 0.2mg (2 tabs) in AM and 0.1mg (1 tab) in PM diltiazem HCl 120 mg capsule,extended release 24 hr 120 mg PO DAILY Qty: 90 3RF hydrochlorothiazide 25 mg tablet 25 mg PO DAILY Qty: 90 3RF amantadine HCl 100 mg tablet 100 mg PO DAILY Qty: 90 3RF pantoprazole 40 mg tablet,delayed release (DR/EC) 40 mg PO DAILY lovastatin 40 mg Tablet 40 mg PO DAILY melatonin 5 mg tablet 10 mg PO BEDTIME Qty: 0 ropinirole 2 mg Tablet 2 mg PO BEDTIME mirtazapine 45 mg Tablet 45 mg PO BEDTIME cyanocobalamin (vitamin B-12) [Vitamin B-12] 250 mcg Tablet 250 mcg PO DAILY tamsulosin 0.4 mg Capsule 0.8 mg PO BEDTIME cholecalciferol (vitamin D3) [Vitamin D3] 25 mcg (1,000 unit) Tablet 25 mcg PO DAILY artificial saliva (cmce-lytes) [place] With Pump 3 spray MUCOUS MEMBRANE Q4H PRN (Reason: Dry Mouth) Rx Instructions: administer while awake gabapentin 300 mg capsule 300 mg PO BID Discharge Orders: Discharge ED (Routine); Ordered 10/29/24 Ordered By: Lauren Khalil Referrals: Kris Arevalo MD [Primary Care Provider, Family Practice] Discharge Diet: Usual diet Discharge Activity: Increase activity as tolerated Patient Instructions: Noncardiac Chest Pain (ED), Opioid Safety, Pain Management, Patient Portal & Shannon Instructions Activity Restrictions/Additional Instructions: Thank you for choosing [facility] for your healthcare needs today. You have been screened and evaluated and felt safe for discharge. Health conditions do change or evolve sometimes and as such it is important that you follow up with your Primary Doctor to be re checked, 3-5 days is a general good time frame for follow up. You are always welcome to return to the ED for re assessment if your symptoms are worsening or you have new concerns Print Language: Tamazight Coding Level of Care Code ED Pull Up Hand for Bari Saez
[2024-10-29 19:40] VITALS: BP 153/61; PULSE 50; RESP 16; O2SAT 97
--- NOTE | 2024-10-29 19:48 | ECG_ITS ---
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 Measurements Intervals [place] Rate: 48 P: 60 [place]: 230 QRS: 68 QRSD: 89 T: 79 QT: 429 QTc: 384 Interpretive Statements SINUS BRADYCARDIA WITH FIRST DEGREE AV BLOCK MINIMAL ST DEPRESSION [0.025+ mV ST DEPRESSION] Compared to ECG 10/29/2024 15:44:23 First degree AV block now present ST (T wave) deviation now present Electronically Signed On 10-30-2024 22:52:41 CDT by Lyle Barber M.D. [email or web address] [id number]
[2024-10-29 20:21] VITALS: BP 156/62; PULSE 56; RESP 17; O2SAT 98
[2024-10-29 21:20] LABS: Troponin 5 2HR 31.91 ng/L (0-15)
[2024-10-29 21:25] VITALS: BP 175/67; PULSE 59; RESP 17; O2SAT 100
[2024-10-29 21:29] LABS: Troponin 5 2HR Delta -0.09 ABS# (0-10)
[2024-10-29 21:47] VITALS: BP 162/74; PULSE 55; RESP 17; O2SAT 100
== END 2024-10-29 21:48 | disposition home or self-care (01) ==
PROVIDERS: Family Medicine; Emergency Provider Emergency Medicine; PCP Family Medicine Geriatric Medicine
DX: R07.89 Other chest pain (principal); E86.0 Dehydration; G35 Multiple sclerosis; Z87.891 Personal history of nicotine dependence; E78.5 Hyperlipidemia, unspecified; I12.9 Hypertensive chronic kidney disease with stage 1 through stage 4 chronic kidney disease, or unspecified chronic kidney disease; N18.9 Chronic kidney disease, unspecified; Z85.46 Personal history of malignant neoplasm of prostate
CPT/HCPCS: 36415; 71045; 80053; 84484; 85025; 93005; 96360; 99285; J7030

== ENCOUNTER 2024-11-13 15:01 | Outpatient (CLI) | payer OTHER, SELFPAY ==
[2024-11-13 16:37] LABS: Prostate Specific Antigen 3.390 ng/mL (0-4)
== END 2024-11-13 15:02 | disposition home or self-care (01) ==
LOC: LAB 15:13
PROVIDERS: PCP Family Medicine Geriatric Medicine; Visit Provider Urology
DX: C61 Malignant neoplasm of prostate (principal)
CPT/HCPCS: 36415; 84153

== ENCOUNTER 2024-12-04 13:31 | Outpatient (CLI) | payer OTHER, SELFPAY ==
[2024-12-04 14:29] LABS: Hematocrit 42.9 % (37-53); Hemoglobin 13.60 g/dL (11.27-16.99); Mean Corpuscular HGB Conc 31.7 g/dL (30-55); Mean Corpuscular Hemoglobin 28.7 pg (27-33); Mean Corpuscular Volume 90.5 fl (82-101); Nucleated Red Blood Cells % 0 %; Platelet Count 162 10^3/cmm (157-399); Red Blood Count 4.74 10^6/uL (3.85-5.65); White Blood Count 8.92 10^3/uL (3.29-11.43)
[2024-12-04 14:49] LABS: Calcium 9.2 mg/dL (8.5-10.5)
[2024-12-04 14:50] LABS: Albumin Level 3.9 g/dL (3.5-5.2); Anion Gap 13.7 (5-19); Blood Urea Nitrogen 15 mg/dL (8-23); Calcium 9.1 mg/dL (8.5-10.5); Carbon Dioxide 23 mmol/L (22-29); Chloride 105 mmol/L (98-107); Glucose 91 mg/dL (65-115); Potassium 4.7 mmol/L (3.5-5.1); Sodium 137 mmol/L (136-145)
== END 2024-12-04 13:32 | disposition home or self-care (01) ==
PROVIDERS: PCP Family Medicine Geriatric Medicine; Visit Provider Internal Medicine Nephrology
DX: N18.32 Chronic kidney disease, stage 3b (principal)
CPT/HCPCS: 36415; 80069; 82306; 82310; 83970; 85025

== ENCOUNTER → 2025-01-02 16:57 | Outpatient (BNVA) | payer SELFPAY | PROVIDERS: PCP Family Medicine Geriatric Medicine; Visit Provider Emergency Medicine | DX: J06.9 Acute upper respiratory infection, unspecified (principal) | CPT/HCPCS: 87400; 87426 ==

== ENCOUNTER 2025-01-15 07:39 | Outpatient (CLI) | payer OTHER, SELFPAY ==
--- NOTE | 2025-01-15 07:46 | USCV_ITS ---
Elpidio Lopez Age: 79 Gender: M : 1945 Exam Date: 01/15/2025 08:12 Ordering Phys: Kris Arevalo MD Technologist: RITCHIE Exam Location[place] [facility] [place] Indication: labile htn BP: 134 / 72 HR: 50 Rhythm: Sinus Technical Quality: Adequate MEASUREMENTS (Male / Female) Normal Values 2D ECHO LV Diastolic Diameter PLAX 5.7 cm 4.2 - 5.9 / 3.9 - 5.3 cm IVS Diastolic Thickness 1.1 cm 0.6 - 1.0 / 0.6 - 0.9 cm IVS Systolic Thickness 1.4 cm LVPW Diastolic Thickness 1.0 cm 0.6 - 1.0 / 0.6 - 0.9 cm LVPW Systolic Thickness 2.4 cm LVOT Diameter 2.0 cm LV Ejection Fraction 2D Teich 77.8 % LV Ejection Fraction MOD 4C 68.5 % LV Ejection Fraction MOD 2C 58.3 % LV Ejection Fraction 2C AL 56.8 % LA Diameter 3.9 cm RA Systolic Volume 4C AL 47.6 ml RA Systolic Volume 4C MOD 47.2 ml LA Sys Volume AL 71.5 cm cubed LA Sys Volume Index AL 33.3 cm cubed/m squared Aorta at Sinotubular Diameter 2.5 cm IVC Diameter 1.6 cm M-MODE LA Ao Ratio MM 1.4 AV Cusp Separation MM 1.7 cm DOPPLER AV Peak Velocity 148.0 cm/s LVOT Peak Velocity 94.0 cm/s AV Area Cont Eq vti 2.5 cm squared AV Area Cont Eq pk 2.0 cm squared MV Peak Velocity 89.0 cm/s MV Area PHT 3.1 cm squared Mitral E to A Ratio 0.9 TV Peak Velocity 169.5 cm/s TR Peak Velocity 247.0 cm/s TR Peak Gradient 24.4 mmHg TR Mean Velocity 182.0 cm/s TR Mean Gradient 14.7 mmHg TR Velocity Time Integral 62.2 cm PV Peak Velocity 86.0 cm/s RV Ejection Time 0.3 s FINDINGS Left Ventricle LV systolic function is normal with EF of 55-60%. No regional wall motion abnormalities are seen. Grade 1 disatolic dysfunction Right Ventricle Normal in size and function Right Atrium Normal in size Left Atrium Dilated IA Septum Grossly normal Mitral Valve Structurally normal mitral valve. Mild mitral regurgitation Aortic Valve Thickened aortic valve. Mild aortic valve regurgitation. No significant stenosis. Tricuspid Valve Mild tricsupid regurgitation. Pulmonary artery systolic pressure is normal. Pulmonic Valve Mild pulmonic regurgitation. Pericardium Normal Aorta Normal in size IVC Appears to be normal CONCLUSIONS LV systolic function is normal with EF of 55-60% Grade 1 diastolic dysfunction Left atrial dilation Mild mitral regurgitation Mild aortic valve regurgitation. Mild tricsupid regurgitation. Mild pulmonic regurgitation. Lyle Barber MD (Electronically Signed) Final Date: 17 January 2025 12:41 S
== END 2025-01-15 07:40 | disposition home or self-care (01) ==
LOC: RAD 07:40
PROVIDERS: PCP Family Medicine Geriatric Medicine; Visit Provider Family Medicine Geriatric Medicine
DX: I10 Essential (primary) hypertension (principal); I08.3 Combined rheumatic disorders of mitral, aortic and tricuspid valves; I37.1 Nonrheumatic pulmonary valve insufficiency
CPT/HCPCS: 93306